=== PATIENT | female | born 1965 | race Caucasian/White ===

== ENCOUNTER 2022-05-28 11:15 | Outpatient (CLI) | payer MEDICAID, SELFPAY ==
[2022-05-28 15:02] LABS: SARS PCR* POSITIVE SARS-CoV-2 (Negative)
== END 2022-05-28 11:16 | disposition home or self-care (01) ==
LOC: KYNREF 11:15
PROVIDERS: PCP Nurse Practitioner Family; Visit Provider Nurse Practitioner Family
DX: U07.1 COVID-19 (principal); R09.81 Nasal congestion
CPT/HCPCS: 87635

== ENCOUNTER 2022-12-02 09:30 | Outpatient (CLI) | payer MEDICAID, SELFPAY ==
[2022-12-02 14:16] LABS: SARS PCR* Negative SARS-CoV-2 (Negative)
[2022-12-03 07:37] LABS: Strep A DNA Probe* NOT DETECTED (Not Detectd)
== END 2022-12-02 09:31 | disposition home or self-care (01) ==
PROVIDERS: PCP Nurse Practitioner Family; Visit Provider Nurse Practitioner Family
DX: Z20.822 Contact with and (suspected) exposure to COVID-19 (principal); J02.9 Acute pharyngitis, unspecified; J11.1 Influenza due to unidentified influenza virus with other respiratory manifestations
CPT/HCPCS: 87635; 87651

== ENCOUNTER 2023-07-22 08:31 | Outpatient (CLI) | payer MEDICAID, SELFPAY | END 2023-07-22 08:32 | disposition home or self-care (01) | PROVIDERS: PCP Nurse Practitioner Family; Visit Provider Nurse Practitioner Family | DX: Z00.00 Encounter for general adult medical examination without abnormal findings (principal); I10 Essential (primary) hypertension; R00.2 Palpitations | CPT/HCPCS: 83735; 84443 ==

== ENCOUNTER 2023-10-30 07:54 | Outpatient (CLI) | payer MEDICAID, SELFPAY ==
--- OUTSIDE RECORDS SUMMARY | 2023-10-30 08:08 | XMS_ITS | Encounter Summary ---
Author Name Unknown Organization [facility] Address [address] [place] [address] Care Team Providers Care Affirmative Action Officer Name Role Phone Elsewhere, Pcp Primary Care Provider Unavailabl e Encounter Details Date Type Department Care Team (Latest Contact Info) Description 08/11/2023 7:25 AM CDT - 08/11/2023 11:59 PM CDT Hospital Encounter Department of Laboratory Medicine and Pathology, [facility], in [place], [place] [address] [place] [address] Alida Colmenares M.D. [address] [place] [address] Polycystic Kidney Autosomal Dominant; Proteinuria Discharge Disposition: Home or Self Care Social History Tobacco Use Types Packs/Day Years Used Date Smoking Tobacco: Former Cigarettes 0 0 10/13/1983 - 10/13/1988 Smokeless Tobacco: Never Alcohol Use Standard Drinks/Week Comments Yes 1 (1 standard drink = 0.6 oz pur e alcohol) occasionally Humiliation, Afraid, Rape, and Kick questionnair e Answer Date Recorded Within the last year, have y ou been afraid of your partner or ex-partner? No 01/08/2023 Within the last year, have y ou been humiliated or emotionally abused in other ways by your partner or ex-partner? No Within the last year, have y ou been kicked, hit, slapped, or otherwise physically hurt by your partner or ex-partner? No 01/08/2023 Within the last year, have y ou been raped or forced to have any kind of sexual activity by your partner or ex-partner? No 01/08/2023 Social Connection and Isolat ion Panel [NHANES] Answer Date Recorded In a typical week, how many times do you talk on the phone with family, friends, or neighbors? Once a week 01/08/2023 How often do you get togethe r with friends or relatives? Once a week 01/08/2023 How often do you attend chur ch or tenriism services? More than 4 times per year 01/08/2023 Do you belong to any clubs o r organizations such as druze groups, unions, fraternal or athletic groups, or school groups? Yes 01/08/2023 How often do you attend meet ings of the clubs or organizations you belong to? More than 4 times per year 01/08/2023 Are you , , di vorced, , never , or living with a partner? 01/08/2023 AUDIT-C Answer Date Recorded Q1: How often do you have a drink containing alc ohol? 2-4 times a month 01/08/2023 Q2: How many drinks containi ng alcohol do you have on a typical day when you are drinking? 1 or 2 01/08/2023 Q3: How often do you have si x or more drinks on one occasion? Never 01/08/2023 Overall Financial Resource Strain (CARDIA) Answe r Date Recorded How hard is it for you to pa y for the very basics like food, housing, medical care, and heating? Not hard at all 01/08/2023 PHQ-2 Answer Date Recorded PHQ-2 Score 1 05/03/2022 [facility] - Occupational Stress Questionnaire Answer Date Recorded Do you feel stress - tense, restless, nervous, or anxious, or unable to sleep at night because your mind is troubled all the time - these days? Not at all 01/08/2023 Exercise Vital Sign Answer Date Recorde d On average, how many days pe r week do you engage in moderate to strenuous exercise (like a brisk walk)? 7 days 01/08/2023 On average, how many minutes do you engage in exercise at this level? 60 min 01/08/2023 Hunger Vital Sign Answer Date Recorded Within the past 12 months, y ou worried that your food would run out before you got the money to buy more. Never true 01/09/20 23 Within the past 12 months, t he food you bought just didn't last and you didn't have money to get more. Never true 01/08/2023 PRAPARE - Transportation Answer Date Re corded In the past 12 months, has l ack of transportation kept you from medical appointments or from getting medications? No 12/12 In the past 12 months, has l ack of transportation kept you from meetings, work, or from getting things needed for daily living? No 01/08/2023 Housing Stability Vital Sign Answer Kevan e Recorded In the last 12 months, was t here a time when you were not able to pay the mortgage or rent on time? No 01/08/2023 In the last 12 months, how many places have you lived? 1 01/08/2023 In the last 12 months, was t here a time when you did not have a steady place to sleep or slept in a usp (including now)? No 01/08/2023 Depression Answer Date Recor ded PHQ-9 Total Score (max 27) 7 05/03 Nutrition Answer Date Recorded Nutrition: EVOO Fat Source Yes 01/08 On average, how many serving s of fruits and vegetables do you eat per day (serving size is equal to 1 cup or approximately the size of a tennis ball)? 2-3 01/08/2023 Dental Answer Date Recorded Dental: Regular Dentist Yes 06/06/20 Employment Answer Date Recorded Employment status Employed and actively working without restrictions 01/08/2023 Education Answer Date Recorded What is the highest level of school you have completed or the highest degree you have received? Associate degree: occupational, technical, or vocational program 10/18/2019 Sex and Gender Information Value Date Recorded Sex Assigned at Female 07/06/2018 4:10 PM CDT Gender Identity Female 07/06/2018 4:10 PM CDT Sexual Orientation Straight 07/06/2018 4: 10 PM CDT documented as of this encounter Medications at Time of Discharge Medication Sig Dispensed Refills Start Date End Date citalopram (CeleXA) 2.5 mg tablet Take 10 mg by mouth. 0 05/28/2022 gabapentin (NEURONTIN) 300 mg capsule Take 1 capsule (300 mg total) by mouth 2 (two) times a day as needed (Sciatica pain). 60 capsule 3 07/11/2023 hydroCHLOROthiazide (HYDRODIURIL) 25 mg tablet Take 25 mg by mouth daily. 0 03/05/2022 LANOLIN/MINERAL OIL/PETROLATUM (ARTIFICIAL TEARS OPHT) Administer 1 drop into both eyes as needed. 0 03/19/2013 losartan (COZAAR) 50 mg tablet Take 1 tablet (50 mg total) by mouth daily. 30 tablet 11 07/11/2023 multivit,stress formula-zinc (b wgleeol-O-B-zinc) tablet Take 1 tablet by mouth daily. 0 rosuvastatin (CRESTOR) 5 mg tablet Take 1 tablet (5 mg total) by mouth daily. 30 tablet 11 07/11/2023 traZODone (DESYREL) 12.5 mg tablet Take 50 mg by mouth. 0 05/28/2022 valACYclovir (VALTREX) 1000 mg tablet Take 2,000 mg by mouth 2 (two) times a day. Not taking right now 0 03/05/2022 estradioL (DIVIGEL) 0.25 mg/0.25 gram (0.1 %) gel by other route. 0 12/02/2022 08/18/2023 documented as of this encounter Plan of Treatment Not on file documented as of this encounter Procedures Procedure Name Priority Date/Time Associated Diagnosis Comments ALBUMIN, RANDOM, U Routine 08/11/2023 7: 58 AM CDT Polycystic Kidney Autosomal Dominant Proteinuria PROTEIN/CREATININE RATIO, RANDOM, URINE Routine 08/11/2023 7:58 AM CDT Polycystic Kidney Autosomal Dominant Proteinuria documented in this encounter Results * Albumin, Random, Urine (08/11/2023 7:58 AM CDT) Albumin, Random, U 24.3 mg/L 2022 10:29 AM CDT DTL Comment: ----ADDITIONAL INFORMATION---- This test has been modified from the machinist mate's instructions. Its performance characteristics were determined by [facility] in a manner consistent with CLIA requirements. This test has not been cleared or approved by the U.S. Food and Drug Administration. Creatinine 135 mg/dL 08/11/2023 9:15 AM CDT DTL Albumin/Creatinine Ratio 18 <25 mg/g 08/11/2023 10:29 AM CDT DTL Urine (Urine, Midstream) 08/11/2023 7:58 AM CDT 08/11/2023 8:25 AM CDT Alida Colmenares M.D. LAB URINE ORDERABLES Performing Organization Address City/[facility] Co de Phone Number [facility] [address] [place] [address], [address] [address] * Protein/Creatinine Ratio, Random, Urine (08/11/2023 7:58 AM CDT) Protein, Total, Random, U 16 mg/dL 08/11/2023 9:15 AM CDT DTL Creatinine, Random, U 135 16 - 326 mg/dL 08/11/2023 9:15 AM CDT DTL Protein/Creatin ine Ratio 0.12 <0.18 mg/mg 08/11/2023 9:15 AM CDT DTL Urine (Urine, Midstream) 08/11/2023 7:58 AM CDT 08/11/2023 8:25 AM CDT Alida Colmenares M.D. LAB URINE ORDERABLES Performing Organization Address City/[facility]/ZIP Co de Phone Number [facility] [address] [place] [address], [address] [address] documented in this encounter Visit Diagnoses Diagnosis Polycystic Kidney Autosomal Dominant Proteinuria documented in this encounter Additional Health Concerns Assessment Noted Time PHQ-9 Depression Total Score: 7 05/03/20 22 10:25 AM CDT documented as of this encounter Care Teams Affirmative Action Officer Relationship Specialty Start Date End Date Elsewhere, Pcp PCP - General Internal Medicine 12/18/21 documented as of this encounter
--- OUTSIDE RECORDS SUMMARY | 2023-10-30 08:08 | XMS_ITS | Encounter Summary ---
Author Name Unknown Organization [facility] Address [address] [place] [address] Care Team Providers Care Pretzel Twister Name Role Phone Elsewhere, Pcp Primary Care Provider Unavailabl e Reason for Visit * Outpatient (Routine) - Closed Specialty Diagnoses / Procedures Referred By Irma torrez Referred To Contact Nutrition Diagnoses Hypertension Essential Primary Alida Colmenares M.D. [address] [place] [address] [facility] Referral ID Status Reason Start Date Expiration Date Visits Re quested Visits Authorized [id number] Closed 08/11/2023 08/10/2024 1 1 Encounter Details Date Type Department Care Team (Latest Contact Info) Description 09/29/2023 10:00 AM PATROL POLICE SERGEANT Clinical Support Department of Nutrition and Diabetes Education in [place], [place] [address] [place] [phone] Alida Colmenares M.D. [address] [place] [phone] Rowan Walden, JORGE ALBERTO, LD [address] [place] [phone] Hypertension Essential Primary Social History Tobacco Use Types Packs/Day Years [...] 01/08/2023 How often do you attend chur or mandaen services? More than 4 times per year 01/08/2023 Do you belong to any clubs o r organizations such as christianity groups, unions, fraternal or athletic groups, or [...] Answer Date Recorded PHQ-2 Score 1 05/03/2022 [facility] - Occupational Stress Questionnaire Answer Date Recorded [...] place to sleep or slept in a retirement (including now)? No 01/08/2023 Depression Answer Date [...] PM CDT documented as of this encounter Progress Notes * Rowan Walden RDN, LD - 09/29/2023 10:00 AM CST CHIEF COMPLAINT/REASON FOR VISIT PKD Met with patient and spouse [id number] HISTORY OF PRESENT ILLNESS Pertinent PMH: HTN ASSESSMENT Relevant Social and Food/Nutrition Related History Freda Manriquez reports she has been watching protein and sodium in her diet. She has been cooking from scratch. has diabetes so they are mindful of carbs. 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 She has cut back on her beef consumption Nutrition Questionnaire Breakfast: sometimes egg and toast and hash browns, hot cereal or yogurt and fruit, 1-2 c of decaf or tea, water Morning snack: n/a Lunch: brings lunch. Soup (homemade) or sandwich, fruit, could be the big meal Afternoon snack: n/a Evening meal: fruit yogurt toast, PB sandwich, out 1 night a week Bedtime snack: tea Beverage choices: 8-10 8 oz. water, decaf, tea, wine Salt/Seasoning use: pepper, no salt Physical activity: was walking 3 miles now doing water aerobic Pertinent labs: Unremarkable Medications/supplements: MVI, [place] 3, D3 and an omega 6 formula losartan Weight History Ht Readings from Last 1 Encounters: 07/11/23 159 cm Wt Readings from Last 1 Encounters: 08/11/23 76.5 kg BMI Readings from Last 1 Encounters: 08/11/23 30.26 kg/m?? Estimation of Nutritional Needs PROTEIN Weight:77 kg (actual body weight) Protein Range: 0.8 grams/kg Protein Goal: 62 grams per day NUTRITION DIAGNOSIS Food- and nutrition-related knowledge deficit related to limited exposure to specific nutritional guidelines for PKD as evidenced by patient questions and diet recall. Nutrition Prescription/Recommendation Less than 2300 mg sodium; 62 g protein INTERVENTION Counseling: Discussed limiting sodium intake to less than 2300 mg per day Encouraged limiting processed foods Encouraged incorporating more plant based proteins into diet while continuing to get adequate but not excessive protein Discussed/reviewed the benefits of getting adequate fluids Discussed/reviewed adding more fruits and veggies to diet Education Materials provided: Guidelines on Controlling Sodium; Calorie and Protein Content of common Foods; Mediterranean diet Also See Patient Education Record for information. MONITORING AND EVALUATION: Nutrition parameter to monitor: Food intake Desired Outcome: Maintain nutrition related lab values within target range Plan/Patient Goal(s): 1. Less than 2300 mg sodium 2. 60 gm total protein from both animal and plant-based sources 3. Avoid processed food 5. At least 5+ fruits and vegetables daily FOLLOW UP PLAN: Provided name and phone number if questions should arise Time spent with patient (minutes): 45 OL POLICE SERGEANT documented in this encounter Plan of Treatment Not on file documented as of this encounter Visit Diagnoses Diagnosis Hypertension Essential Primary documented in this encounter Additional Health Concerns Assessment Noted Time PHQ-9 Depression Total Score: 7 05/03/20 22 10:25 AM CDT documented as of this encounter Care Teams Pretzel Twister Relationship Specialty Start Date End Date Elsewhere, Pcp PCP - General Internal Medicine 12/18/21 documented as of this encounter
--- OUTSIDE RECORDS SUMMARY | 2023-10-30 08:08 | XMS_ITS | Clinical Summary ---
Author Name Unknown Organization [facility] Address [address] [place] [address] Care Team Providers Care Vehicle Technician Name Role Phone Elsewhere, Pcp Primary Care Provider Unavailabl e Source Comments Patient records contain information from all sites at [facility]. For routine questions regarding patient records, call [phone] during business hours, M-F 8:00 AM - 5:00 PM Central Time. Record requests for emergency care only can be directed to [phone] at any time.[facility] Allergies Active Allergy Reactions Criticality Noted Date Comments Irbesartan Palpitations Medium 07/19/2016 Lisinopril Rash Medium 07/19/2016 Medications Medication Sig Dispensed Refills Start Date End Date Status LANOLIN/MINERAL OIL/PETROLATUM (ARTIFICIAL TEARS OPHT) Administer 1 drop into both eyes as needed. 0 03/19/2013 Active multivit,stress formula-zinc (b gxezjju-D-H-zinc) tablet Take 1 tablet by mouth daily. 0 Active hydroCHLOROthiazi de (HYDRODIURIL) 25 mg tablet Take 25 mg by mouth daily. 0 03/05/2022 Active valACYclovir (VALTREX) 1000 mg tablet Take 2,000 mg by mouth 2 (two) times a day. Not taking right now 0 03/05/2022 Active traZODone (DESYREL) 12.5 mg tablet Take 50 mg by mouth. 0 05/28/2022 Acti ve citalopram (CeleXA) 2.5 mg tablet Take 10 mg by mouth. 0 05/28/2022 Acti ve losartan (COZAAR) 50 mg tablet Take 1 tablet (50 mg total) by mouth daily. 30 tablet 11 07/11/2023 Active gabapentin (NEURONTIN) 300 mg capsule Take 1 capsule (300 mg total) by mouth 2 (two) times a day as needed (Sciatica pain). 60 capsule 3 07/11/2023 Active Additional Information Patient not taking.Reported on 08/11/2023 rosuvastatin (CRESTOR) 5 mg tablet Take 1 tablet (5 mg total) by mouth daily. 30 tablet 11 07/11/2023 Active Additional Information Patient not taking.Reported on 08/26/2023 estradioL (ESTRACE) 0.1 mg/g (0.01%) vaginal cream Apply 0.5 gram vulvovaginally twice weekly. 42.5 g 0 08/20/2023 Active estradioL (ESTRACE) 0.1 mg/g (0.01%) vaginal cream Insert 0.5 g into the vagina 2 (two) times a week. 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 Polycystic Kidney Autosomal Dominant; Proteinuria Discharge Disposition: Home or Self Care 09/29/2023 1:00 PM INHALATION THERAPY AIDE Nurse Only Division of Nephrology and Hypertension in [address] [phone] Alida Colmenares M.D. Palmer, Anna M, R.N. blood pressure monitor check 09/29/2023 10:00 AM INHALATION THERAPY AIDE Clinical Support Department of Nutrition and Diabetes Education in [place], [place] [address] [place] [phone] Alida Colmenares M.D. Theiler, Jami L, RDN, LD Hypertension Essential Primary 08/14/2023 Refill [facility] in [place], [place] [address] [place] [address] Emily Lee P.A.-C. Med Refill 08/11/2023 8:30 AM CDT Nurse Only Division of Nephrology and Hypertension in [place], [place] [address] [place] [address] Alida Colmenares M.D. Palmer, Anna M, RCarenN. Hypertension 08/11/2023 7:25 AM CDT - 08/11/2023 11:59 PM CDT Hospital Encounter Department of Laboratory Medicine and Pathology, [place], [place] [address] [place] [address] Alida Colmenares M.D. Polycystic Kidney Autosomal Dominant; Proteinuria Discharge Disposition: Home or Self Care 08/11/2023 7:25 AM CDT - 08/11/2023 11:59 PM CDT Hospital Encounter Department of Laboratory Medicine and Pathology, [place], [place] [address] [place] [address] Alida Colmenares M.D. Polycystic Kidney Autosomal Dominant; Proteinuria Discharge Disposition: Home or Self Care from Last 3 Months Immunizations Name Administration Dates Next Due HepA Adult 12/21/2012 HepB Adult 05/01/2022(Deferred: Other - up to date) Influenza (IM) Preservative Free 012,08/01/2010,08/02/2008,2006 Influenza Split 10/27/2015, 4,07/13/2012,2006 Influenza TIV (IM) 08/10/2018,08/29/2017, 012 Influenza, Injectable, Mdck, Preservative Free, Quadrivalent 07/26/2020 Influenza, Injectable, Quadrivalent 07/28/2015 Influenza, Seasonal, Injectable 08/10/2012 Influenza, Unspecified 07/09/2018(Deferr ed: Other),07/19/2016,10/27/2015,07/28/2015 ,07/25/2014,07/30/2013,08/10/2012,07/13,12/24/2011,08/01/2010,08/02/2008, 07/13/2007 RZV (SHINGRIX) 05/01/2022(Deferred: Other - had 1st dose, due for 2nd dose soon) Td, (Adult) Unspecified 06/13/2005 Tdap 12/23/2012,12/21/2012 influenza high dose (65 year s or older) (PF) 10/27/2015 influenza vaccine QV(FLUBLOK ) (18 years or older) (PF) 07/25/2021,07/09/2018(Deferred: Other) influenza vaccine quad (FLUZONE/FLUARIX) (6 months and older)(PF) 08/03/2019,08/10/2018,08/29/2017 Family History Medical History Relation Name Comments Arthritis Father Chris Colon polyps Father Chris Hyperlipidemia Father Chris Hypertension Father Chris Stroke Father Chris Kidney disease Grandfather Stroke Grandmother Diabetes Mother Nasrin Kidney disease Mother Nasrin Relation Name Status Comments Father Chris Grandfather Grandmother Mother Nasrin Social History Tobacco Use Types Packs/Day Years Used Date Smoking Tobacco: Former Cigarettes 0 0 10/13/1983 - 10/13/1988 Smokeless Tobacco: Never Tobacco Cessation:Counseling Given: Not Answered Alcohol Use Standard Drinks/Week Comments Yes 1 [...] How often do you attend chur or gnosticism services? More than 4 times per year 01/08/2023 Do you belong to any clubs o r organizations such as faith groups, unions, fraternal or athletic groups, or [...] Answer Date Recorded PHQ-2 Score 1 05/03/2022 [facility] ional [facility] - Occupational Stress Questionnaire Answer Date Recorded [...] place to sleep or slept in a half-way (including now)? No 01/08/2023 Depression Answer Date [...] Orientation Straight 07/06/2018 4: 10 PM CDT Last Filed Vital Signs Vital Sign Reading Time Taken Comments Blood Pressure 160/86 08/11/2023 9:17 AM CDT Pulse 80 08/11/2023 9:09 AM CDT Temperature 35.2 ??C (95.4 ??F) 07/11/2023 1:24 PM CD T Respiratory Rate 12 07/29/2018 10:1 6 AM CDT Oxygen Saturation 98% 07/29/2018 10: 16 AM CDT Inhaled Oxygen Concentration - - Weight 76.5 kg (168 lb 10.4 oz) 08/11/2023 9:09 AM CDT Height 159 cm (5' 2.6) 07/11/2023 1:24 PM CDT Body Mass Index 30.26 07/11/2023 1:24 PM CDT Plan of Treatment Health Maintenance Due Date Last Done Comments CT Colonography 1967 Cologuard 1967 FIT 1967 Hepatitis B Vaccines (1 of 3 - 3-dose series) 1965 Hepatitis C Screening 1965 Mammogram 04/29/2023 04/29/2022, 06/0 06/2021, 12/08/2019, Additional history exists COVID-19 Vaccine ( season) 2023 09/02/2022, 03/05/2022, 08/30/2021, Additional history exists Depression Screening (Annual PHQ-2) 10/13/2023 Office Visit for Blood Pressure Check / Re-check 11/11/2023 08/11/2023 Creatinine Level (Kidney Function Test) 08/11/2024 08/11/2023, 07/11/2023, 04/29/2022, Additional history exists Potassium Level 08/11/2024 08/11/2023, 06/14, 04/29/2022, Additional history exists Sodium Level 08/11/2024 08/11/2023, 06/14, 04/29/2022, Additional history exists Fasting Glucose for Diabetes Screening 08/11/2026 08/11/2023, 07/11/2023, 04/29/2022, Additional history exists Cervical Cancer Screening 11/27/20262021, 03/14/2016, 03/14/2016, Additional history exists Lipid (Cholesterol) Screening 07/11/2028 07/11/2023, 04/29/2022, 03/21/2021, Additional history exists Colonoscopy 07/29/2028 07/29/2018, 07/13, 11/12/2005 Colorectal Cancer Screening 07/29/2028 DTaP,Tdap,and Td Vaccines (4 - Td or Tdap) 07/22/2033 07/22/2023, 12/23/2012, 12/21/2012, Additional history exists HIV Screening Completed 11/27/2007 Zoster Vaccines Completed 07/23/2022, 01/24/2022 Influenza Vaccine Completed 06/12/2023, , 07/25/2021, Additional history exists Hepatitis A Vaccines Completed 10/21/2023, 12/22/19 13 Pneumococcal vaccine (0-64 years) Aged Out No longer eligible based on patient's age to complete this topic Procedures Procedure Name Priority Date/Time Associated Diagnosis Comments MR BRAIN ANGIOGRAM WITHOUT IV CONTRAST RAD - Routine (most inpatients and all outpatients) 09/29/2023 2:31 PM INHALATION THERAPY AIDE Polycystic Kidney Autosomal Dominant Proteinuria ALBUMIN, RANDOM, U Routine 08/11/2023 7:58 AM CDT Polycystic Kidney Autosomal Dominant Proteinuria PROTEIN/CREATININ E RATIO, RANDOM, URINE Routine 08/11/2023 7:58 AM CDT Polycystic Kidney Autosomal Dominant Proteinuria RENAL FUNCTION PANEL, S Routine 08/11/2023 7:51 AM CDT Polycystic Kidney Autosomal Dominant Proteinuria from Last 3 Months Results * MR Brain Angiogram without IV Contrast (09/29/2023 2:31 PM INHALATION THERAPY AIDE) Anatomical Region Laterality Modality Head, Brain, Neuroradiology RST LOS, Neuroradiology ARZ LOS, Neuroradiology FLA LOS N/A Magnetic Resonance 09/29/2023 3:24 PM INHALATION THERAPY AIDE Impressions 09/29/2023 3:30 PM INHALATION THERAPY AIDE No evidence for aneurysm. Narrative 09/29/2023 3:30 PM INHALATION THERAPY AIDE EXAM: MR BRAIN ANGIOGRAM WITHOUT IV CONTRAST COMPARISON: None. FINDINGS: Mildly irregular contour along the undersurface of the proximal right cavernous ICA is favored to be related to flow artifact. No discrete aneurysm identified. Normal-appearing anterior and posterior circulations without flow-limiting stenosis. Hypoplastic or diminutive posterior communicating arteries. Small anterior communicating artery. Codominant vertebral arteries which both contribute to the basilar artery. Basilar artery is patent with a normal 4 vessel termination. Procedure Note Elena Shipman M.D. - 09/29/2023 EXAM: MR BRAIN ANGIOGRAM WITHOUT IV CONTRAST COMPARISON: None. FINDINGS: Mildly irregular contour along the undersurface of the proximalright cavernous ICA is favored to be related to flow artifact. No discreteaneurysm identified. Normal-appearing anterior and posterior circulationswithout flow- limiting stenosis. Hypoplastic or diminutive posterior communicating arteries. Smallanterior communicating artery. Codominant vertebral arteries which bothcontribute to the basilar artery. Basilar artery is patent with a normal 4vessel termination. IMPRESSION: No evidence for aneurysm. Alida Colmenares M.D. IMG MRI PROCEDURES * Albumin, Random, Urine (08/11/2023 7:58 AM CDT) Albumin, Random, U 24.3 mg/L 2022 10:29 AM CDT DTL Comment: ----ADDITIONAL INFORMATION---- This test has been modified from the turntable engineer's instructions. Its performance characteristics were determined by [facility] in a manner consistent with CLIA requirements. This test has not been cleared or approved by the U.S. Food and Drug Administration. Creatinine 135 mg/dL 08/11/2023 9:15 AM CDT DTL Albumin/Creatinine Ratio 18 <25 mg/g 08/11/2023 10:29 AM CDT DTL Urine (Urine, Midstream) 08/11/2023 7:58 AM CDT 08/11/2023 8:25 AM CDT Alida Colmenares M.D. LAB URINE ORDERABLES [facility] [address] [place] [address], [facility] [address] [place] [address] * Protein/Creatinine Ratio, Random, Urine (08/11/2023 7:58 AM CDT) Protein, Total, Random, U 16 mg/dL 08/11/2023 9:15 AM CDT DTL Creatinine, Random, U 135 16 - 326 mg/dL 08/11/2023 9:15 AM CDT DTL Protein/Creatin ine Ratio 0.12 <0.18 mg/mg 08/11/2023 9:15 AM CDT DTL Urine (Urine, Midstream) 08/11/2023 7:58 AM CDT 08/11/2023 8:25 AM CDT Alida Colmenares M.D. LAB URINE ORDERABLES [facility] [address] [place] [address], [facility] DTL [facility] [address] [place] [address] * Renal Function Panel (08/11/2023 7:51 AM CDT) Potassium, S 3.9 3.6 - 5.2 mmol/L 08/11/2023 8:47 AM CDT DTL Sodium, S 141 135 - 145 mmol/L 08/11/2023 8:47 AM CDT DTL Chloride, S 104 98 - 107 mmol/L 08/11/2023 8:47 AM CDT DTL Bicarbonate, S 27 22 - 29 mmol/L 08/11/2023 8:47 AM CDT DTL Anion Gap 10 7 - 15 08/11/2023 8:47 AM CDT DTL BUN (Blood Urea Nitrogen), S 15 6 - 21 mg/dL 08/11/2023 8:47 AM CDT DTL Creatinine 0.85 0.59 - 1.04 mg/dL 08/11/2023 8:47 AM CDT DTL Estimated GFR (eGFR) 81 >=60 mL/min/BSA 08/11/2023 8:47 AM CDT DTL Comment: Estimated GFR calculated using the 2020 CKD_EPI creatinine equation. Calcium, Total, S 9.6 8.6 - 10.0 mg/dL 08/11/2023 8:47 AM CDT DTL Glucose, S 117 70 - 140 mg/dL 08/11/2023 8:47 AM CDT DTL Albumin, S 5.0 3.5 - 5.0 g/dL 08/11/2023 8:47 AM CDT DTL Phosphorus (Inorganic), S 2.6 2.5 - 4.5 mg/dL 08/11/2023 8:47 AM CDT DTL Blood (Blood, Venous) 08/11/2023 7:51 AM CDT 08/11/2023 8:27 AM CDT Alida Colmenares M.D. LAB BLOOD ADD-ON [facility] [address] [place] [address], [place] [facility] [address] [place] [address] from Last 3 Months Advance Directives For more information, please contact: [phone] Documents on File Type Date Recorded Patient Lead Technologist In Cytogenetics Expl anation Advance Directives 04/04/2015 12:00 AM Leg acy document. See document viewer. Care Teams Vehicle Technician Relationship Specialty Start Date End Date Elsewhere, Pcp PCP - General Internal Medicine 12/18/21
--- OUTSIDE RECORDS SUMMARY | 2023-10-30 08:08 | XMS_ITS | Encounter Summary ---
Author Name Unknown Organization [facility] Address [address] [place] [address] Care Team Providers Care Clay Hoister Name Role Phone Elsewhere, Pcp Primary Care Provider Unavailabl e Reason for Visit * Reason Comments blood pressure monitor check * Outpatient (Routine) - Closed Specialty Diagnoses / Procedures Referred By Irma torrez Referred To Contact Nephrology and Hypertension Alida Colmenares M.D. [address] [place] [address] [facility] Referral ID Status Reason Start Date Expiration Date Visits Re quested Visits Authorized [id number] Closed 08/11/2023 08/10/2026 1 1 Encounter Details Date Type Department Care Team (Late st Contact Info) Description 09/29/2023 1:00 PM CATTLE DEALER Nurse Only Division of Nephrology and Hypertension in [place], [place] [address] [place] [phone] Alida Colmenares M.D. [address] [place] [phone] Gemma Judd R.N. [address] [place] [phone] blood pressure monitor check Social History Tobacco Use Types Packs/Day Years [...] How often do you attend chur or mormonism services? More than 4 times per year 01/08/2023 Do you belong to any clubs o r organizations such as spiritism groups, unions, fraternal or athletic groups, or [...] Answer Date Recorded PHQ-2 Score 1 05/03/2022 [facility] of Occupat ional [facility] - Occupational Stress Questionnaire Answer Date [...] money to buy more. Never true 01/09/20 Within the past 12 months, t he [...] place to sleep or slept in a correction (including now)? No 01/08/2023 Depression Answer Date [...] as of this encounter Progress Notes * Gemma Judd R.N. - 09/29/2023 1:00 PM CST Provider Name: Dr. Colmenares Reason for Visit: Returning short-term patient Relevant History: hypertension, kidney disease, and hyperlipidemia Freda came to have her home blood pressure monitor checked but forgot to bring it. She said she didhave it checked for accuracy with her PCP recently and it was accurate. I asked her to have it checked every year. She did mention that she is still having symptoms since starting Losartan in June. She says her heartbeat is more noticeable almost every day and this feeling lasts 30 seconds to a few minutes. She said it seems like a person sitting next to her would be able to see her heart beating in her chest. She denies any dizziness or light headedness or other symptoms with this feeling. Her blood pressures have been running consistently under 130/80. She said she also notices this feeling during exercise and but feels great after exercising. She said this feeing is getting better and that she can tolerate it. She did mention this feeling to her PCP who would have taken her off Losartan and increased her Metoprolol instead. She also said she never got results from her abdominal MRI in July. I did review the results with her but will let Dr. Colmenares review with her as well. LE DEALER documented in this encounter Plan of Treatment Not on file documented as of this encounter Visit Diagnoses Diagnosis Hypertension Essential Primary- Primary documented in this encounter Additional Health Concerns Assessment Noted Time PHQ-9 Depression Total Score: 7 05/03/20 22 10:25 AM CDT documented as of this encounter Care Teams Clay Hoister Relationship Specialty Start Date End Date Elsewhere, Pcp PCP - General Internal Medicine 12/18/21 documented as of this encounter
--- OUTSIDE RECORDS SUMMARY | 2023-10-30 08:08 | XMS_ITS ---
Author Name Unknown Organization [facility] Address [address] [place] [address] Care Team Providers Care Stick Welder Name Role Phone Unavailable Unavailable Unavailable Surgery Details Not on file Complications Check Surgery Details section. Procedure Estimated Blood Loss Check Surgery Details section. Procedure Findings Check Surgery Details section. Procedure Specimens Taken Check Surgery Details section.
--- OUTSIDE RECORDS SUMMARY | 2023-10-30 08:08 | XMS_ITS | Encounter Summary ---
Author Name Unknown Organization [facility] Address [address] [place] [address] Care Team Providers Care Aluminum Molding Machine Operator Name Role Phone Elsewhere, Pcp Primary Care Provider Unavailabl e Encounter Details Date Type Department Care Team (Latest Contact Info) Description 08/11/2023 7:25 AM CDT - 08/11/2023 11:59 PM CDT Hospital Encounter Department of Laboratory Medicine and Pathology, [facility], in [place], [place] [address] [place] [address] Alida Colmenares M.D. [address] [place] [address] Polycystic Kidney Autosomal Dominant; Proteinuria Discharge Disposition: [...] often do you attend chur ch or amish services? More than 4 times per year 01/08/2023 Do you belong to any clubs o r organizations such as restorationist groups, unions, fraternal or athletic groups, or [...] Answer Date Recorded PHQ-2 Score 1 05/03/2022 [facility] - Occupational Stress [...] 30 tablet 11 07/11/2023 multivit,stress formula-zinc (b vsaujwf-G-J-zinc) tablet Take 1 tablet by mouth daily. [...] Procedure Name Priority Date/Time Associated Diagnosis Comments RENAL FUNCTION PANEL, S Routine 08/11/2023 7:51 AM CDT Polycystic Kidney Autosomal Dominant Proteinuria documented in this encounter Results * Renal Function Panel (08/11/2023 7:51 AM [...] CDT Alida Colmenares M.D. [place] [address], [facility] [address] [place] [address] documented in this encounter Visit Diagnoses Diagnosis Polycystic Kidney Autosomal Dominant Proteinuria documented in this encounter Additional Health Concerns Assessment Noted Time PHQ-9 Depression Total Score: 7 05/03/20 10:25 AM CDT documented as of this encounter Care Teams Aluminum Molding Machine Operator Relationship Specialty Start Date End Date Elsewhere, Pcp PCP - General Internal Medicine 12/18/21 documented as of this encounter
--- OUTSIDE RECORDS SUMMARY | 2023-10-30 08:08 | XMS_ITS | Encounter Summary ---
Author Name Unknown Organization [facility] Address [address] [place] [address] Care Team Providers Care Automobile Club Membership Sales Agent Name Role Phone Elsewhere, Pcp Primary Care Provider Unavailabl e Reason for Referral * MRI/CAT/PET Scan (Routine) - Closed Specialty Diagnoses / Procedures Referred By Irma torrez Referred To Contact Radiology Diagnoses Polycystic Kidney Autosomal Dominant Proteinuria Procedures MR Brain Angiogram without IV Contrast Alida Colmenares M.D. [address] [place] [address] [facility] Referral ID Status Reason Start Date Expiration Date Visits Re quested Visits Authorized [id number] Closed 07/11/2023 07/10/2024 1 1 AND FLOOR TILER Reason for Visit * MRI/CAT/PET Scan (Routine) - Closed Specialty Diagnoses / Procedures Referred By Irma torrez Referred To Contact Radiology Diagnoses Polycystic Kidney Autosomal Dominant Proteinuria Procedures MR Brain Angiogram without IV Contrast Alida Colmenares M.D. [address] [place] [address] [facility] Referral ID Status Reason Start Date Expiration Date Visits Re quested Visits Authorized [id number] Closed 07/11/2023 07/10/2024 1 1 Encounter Details Date Type Department Care Team (Latest Contact Info) Description 09/29/2023 1:27 PM WALL AND FLOOR TILER - 09/29/2023 11:59 PM WALL AND FLOOR TILER Hospital Encounter Department of Radiology, [facility] in [place], [place] [address] [place] [address] Alida Colmenares M.D. [address] [place] [address] Polycystic Kidney Autosomal Dominant; Proteinuria Discharge Disposition: [...] often do you attend chur ch or anabaptism services? More than 4 times per year 01/08/2023 Do you belong to any clubs o r organizations such as presybeterian groups, unions, fraternal or athletic groups, or [...] Answer Date Recorded PHQ-2 Score 1 05/03/2022 [facility] of Occupat ional Health - Occupational Stress [...] place to sleep or slept in a mcc (including now)? No 01/08/2023 Depression Answer Date [...] Take 10 mg by mouth. 0 05/28/2022 estradioL (ESTRACE) 0.1 mg/g (0.01%) vaginal cream Apply 0.5 gram vulvovaginally twice weekly. 42.5 g 0 08/20/2023 estradioL (ESTRACE) 0.1 mg/g (0.01%) vaginal cream Insert 0.5 g into the vagina 2 (two) times a week. 0 gabapentin (NEURONTIN) 300 mg capsule Take 1 [...] 30 tablet 11 07/11/2023 multivit,stress formula-zinc (b qtljsag-K-N-zinc) tablet Take 1 tablet by mouth daily. 0 rosuvastatin (CRESTOR) 5 mg tablet Take 1 tablet (5 mg total) by mouth daily. 30 tablet 11 07/11/2023 traZODone (DESYREL) 12.5 mg tablet Take 50 mg by mouth. 0 05/28/2022 valACYclovir (VALTREX) 1000 mg tablet Take 2,000 mg by mouth 2 (two) times a day. Not taking right now 0 03/05/2022 documented as of this encounter Plan of Treatment Not on file documented as of this encounter Procedures Procedure Name Priority Date/Time Associated Diagnosis Comments MR BRAIN ANGIOGRAM WITHOUT IV CONTRAST RAD - Routine (most inpatients and all outpatients) 09/29/2023 2:31 PM WALL AND FLOOR TILER Polycystic Kidney Autosomal Dominant Proteinuria documented in this encounter Results * MR Brain Angiogram without IV Contrast (09/29/2023 2:31 PM WALL AND FLOOR TILER) Anatomical Region Laterality Modality Head, Brain, Neuroradiology RST LOS, Neuroradiology ARZ [facility], Neuroradiology FLA LOS N/A Magnetic Resonance 09/29/2023 3:24 PM WALL AND FLOOR TILER Impressions 09/29/2023 3:30 PM WALL AND FLOOR TILER No evidence for aneurysm. Narrative 09/29/2023 3:30 PM WALL AND FLOOR TILER EXAM: MR BRAIN ANGIOGRAM WITHOUT IV CONTRAST [...] termination. IMPRESSION: No evidence for aneurysm. Alida VARGAS MRI PROCEDURES documented in this encounter Visit Diagnoses Diagnosis Polycystic Kidney Autosomal Dominant Proteinuria documented in this encounter Additional Health Concerns Assessment Noted Time PHQ-9 Depression Total Score: 7 05/03/20 22 10:25 AM CDT documented as of this encounter Care Teams Automobile Club Membership Sales Agent Relationship Specialty Start Date End Date Elsewhere, Pcp PCP - General Internal Medicine 12/18/21 documented as of this encounter
--- OUTSIDE RECORDS SUMMARY | 2023-10-30 08:08 | XMS_ITS | Encounter Summary ---
Author Name Unknown Organization [facility] Address [address] [place] [address] Care Team Providers Care Air Technician Name Role Phone Elsewhere, Pcp Primary Care Provider Unavailabl e Reason for Visit * Reason Comments Med Refill Encounter Details Date Type Department Care Team (Late st Contact Info) Description 08/14/2023 Refill [facility] in [place], [place] [address] [place] [address] Emily Lee, P.A.-C. [address] [place] [address] Med Refill Social History Tobacco Use Types Packs/Day Years [...] How often do you attend chur or sabianist services? More than 4 times per year 01/08/2023 Do you belong to any clubs o r organizations such as taoism groups, unions, fraternal or athletic groups, or [...] Date Recorded PHQ-2 Score 1 05/03/2022 [facility] - Occupational [...] place to sleep or slept in a assisted (including now)? No 01/08/2023 Depression Answer Date [...] PM CDT documented as of this encounter Miscellaneous Notes * Telephone Encounter - Elvia Aguilera L.P.NCaren - 08/18/2023 10:07 AM BRICK VENEER MAKER SUBJECTIVE CHIEF COMPLAINT / REASON FOR CALL Med Refill PLAN The following information was provided: Confirmation of medication dose and frequency Information/Education: patient/caller able to teach back The following references were used: none Discrepancy/Issue: Medication was removed from list in error. Patient is still taking. Patient reports taking medication as prescribed. ASSESSMENT Medication list has been updated to reflect patient reported information. Nurse will communicate information to the provider and contact the patient if there are further recommendations. K VENEER MAKER documented in this encounter Plan of Treatment Not on file documented as of this encounter Visit Diagnoses Not on filedocumented in this encounter Additional Health Concerns Assessment Noted Time PHQ-9 Depression Total Score: 7 05/03/20 22 10:25 AM CDT documented as of this encounter Care Teams Air Technician Relationship Specialty Start Date End Date Elsewhere, Pcp PCP - General Internal Medicine 12/18/21 documented as of this encounter
--- OUTSIDE RECORDS SUMMARY | 2023-10-30 08:08 | XMS_ITS | Referral Summary ---
Author Name Unknown Organization [facility] Address [address] [place] [address] Care Team Providers Care Research Professor Name Role Phone Elsewhere, Pcp Primary Care Provider Unavailabl e Source Comments Patient records contain information from all sites at [facility]. For routine questions regarding patient records, call [phone] during business hours, M-F 8:00 AM - 5:00 PM Central Time. Record requests for emergency care only can be directed to [phone] at any time.[facility] Encounters Date Type Department Care Team Description 09/29/2023 1:00 PM PUNCH MACHINE HAND Nurse Only Division of Nephrology and Hypertension in [place], [place] [address] [place] [address] Alida Colmenares M.D. Palmer, Anna M, R.N. blood pressure monitor check 09/29/2023 10:00 AM PUNCH MACHINE HAND Clinical Support Department of Nutrition and Diabetes Education in [place], [place] [address] [place] [address] Alida Colmenares M.D. Theiler, Jami L, MAGDALENAN, LD Hypertension Essential Primary 09/29/2023 1:27 PM PUNCH MACHINE HAND - 09/29/2023 11:59 PM PUNCH MACHINE HAND Hospital Encounter Department of Radiology, [facility] in [place], [place] [address] [place] [address] Alida Colmenares M.D. Polycystic Kidney Autosomal Dominant; Proteinuria Discharge Disposition: Home or Self Care 08/14/2023 Refill [facility] in [place], [place] [address] [place] [address] Emily Lee P.A.-C. Med Refill 08/11/2023 7:25 AM CDT - 08/11/2023 11:59 PM CDT Hospital Encounter Department of Laboratory Medicine and Pathology, [facility], [place], [place] [address] [place] [address] Alida Colmenares M.D. Polycystic Kidney Autosomal Dominant; Proteinuria Discharge Disposition: Home or Self Care 08/11/2023 7:25 AM CDT - 08/11/2023 11:59 PM CDT Hospital Encounter Department of Laboratory Medicine and Pathology, [place], [place] [address] [place] [address] Alida Colmenares M.D. Polycystic Kidney Autosomal Dominant; Proteinuria Discharge Disposition: Home or Self Care 08/11/2023 8:30 AM CDT Nurse Only Division of Nephrology and Hypertension in [place], [place] [address] [place] [address] Alida Colmenares M.D. Palmer, Anna M, R.N. Hypertension from Last 3 Months Allergies Active Allergy Reactions Criticality Noted Date Comments Irbesartan Palpitations Medium 07/19/2016 Lisinopril Rash Medium 07/19/2016 Medications Medication Sig Dispensed Refills Start Date End Date Status LANOLIN/MINERAL OIL/PETROLATUM (ARTIFICIAL TEARS OPHT) Administer 1 drop into both eyes as needed. 0 03/19/2013 Active multivit,stress formula-zinc (b mwvbkax-W-J-zinc) tablet Take 1 tablet by mouth daily. 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 More than 4 times per year 01/08/2023 Do you belong to any clubs o r organizations such as bahai groups, unions, fraternal or athletic groups, or [...] Date Recorded PHQ-2 Score 1 05/03/2022 [facility] - Occupational Stress Questionnaire Answer Date [...] place to sleep or slept in a group home (including now)? No 01/08/2023 Depression Answer Date [...] 07/11/2023 1:24 PM CDT Plan of Treatment Not on file Procedures Procedure Name Priority Date/Time Associated Diagnosis Comments MR BRAIN ANGIOGRAM WITHOUT IV CONTRAST RAD - Routine (most inpatients and all outpatients) 09/29/2023 2:31 PM PUNCH MACHINE HAND Polycystic Kidney Autosomal Dominant Proteinuria ALBUMIN, RANDOM, U Routine 08/11/2023 7:58 AM CDT Polycystic Kidney Autosomal Dominant Proteinuria PROTEIN/CREATININ E RATIO, RANDOM, URINE Routine 08/11/2023 7:58 AM CDT Polycystic Kidney Autosomal Dominant Proteinuria RENAL FUNCTION PANEL, S Routine 08/11/2023 7:51 AM CDT Polycystic Kidney Autosomal Dominant Proteinuria from Last 3 Months Results * MR Brain Angiogram without IV Contrast (09/29/2023 2:31 PM PUNCH MACHINE HAND) Anatomical Region Laterality Modality Head, Brain, Neuroradiology [facility] LOS, Neuroradiology [facility], Neuroradiology FLA LOS N/A Magnetic Resonance 09/29/2023 3:24 PM PUNCH MACHINE HAND Impressions 09/29/2023 3:30 PM PUNCH MACHINE HAND No evidence for aneurysm. Narrative 09/29/2023 3:30 PM PUNCH MACHINE HAND EXAM: MR BRAIN ANGIOGRAM WITHOUT IV CONTRAST [...] This test has been modified from the cardiac cath rn's instructions. Its performance characteristics were determined by [facility] in a manner consistent with CLIA requirements. This test has not been cleared or approved by the U.S. Food and Drug Administration. Creatinine 135 mg/dL 08/11/2023 9:15 AM CDT DTL Albumin/Creatinine Ratio 18 <25 mg/g 08/11/2023 10:29 AM CDT DTL Urine (Urine, Midstream) 08/11/2023 7:58 AM CDT 08/11/2023 8:25 AM CDT Alida Colmenares M.D. LAB URINE ORDERABLES Performing Organization Address City/[facility] Co de Phone Number [facility] [address] [place] [address], [facility] [address] [place] [address] * Protein/Creatinine Ratio, Random, Urine (08/11/2023 7:58 [...] M.D. LAB URINE ORDERABLES Performing Organization Address City/[facility]/ZIP Co de Phone Number [facility] [address] [place] [address], [place] DTL [facility] [address] [place] [address] * Renal Function Panel (08/11/2023 7:51 AM CDT) Pathologist [facility] Potassium, S 3.9 3.6 - 5.2 mmol/L [...] CDT Alida Colmenares M.D. LAB BLOOD ADD-ON [facility] [address] [place] [address], [facility] DTL [facility] [address] [place] [address] from Last 3 Months Advance Directives For more information, please contact: [phone] Documents on File Type Date Recorded Patient Bilingual Sales Representative Expl anation Advance Directives 04/04/2015 12:00 AM Leg acy document. See document viewer. Care Teams Research Professor Relationship Specialty Start Date End Date Elsewhere, Pcp PCP - General Internal Medicine 12/18/21
--- OUTSIDE RECORDS SUMMARY | 2023-10-30 08:09 | XMS_ITS | Encounter Summary ---
Author Name Unknown Organization [facility] Address [address] [place] [address] Care Team Providers Care Offal Icer Poultry Name Role Phone Elsewhere, Pcp Primary Care Provider Unavailabl e Reason for Visit * Reason Comments Eye Exam * Outpatient (Routine) - Closed Specialty Diagnoses / Procedures Referred By Irma torrez Referred To Contact Ophthalmology Tyler Smith Jr., M.D. [address], [place] [address] [facility] Region Referral ID Status Reason Start Date Expiration Date Visits Re quested Visits Authorized [id number] Closed 06/24/2022 06/23/2025 1 1 Encounter Details Date Type Department Care Team (Latest Contact Info) Description 01/14/2023 4:00 PM CDT Office Visit Department of Ophthalmology in [place], [place] [address] [place] [phone] Tyler Smith Jr., M.D. [address] [place] [phone] Myopia Bilateral (Primary Dx); Presbyopia Social History Tobacco Use Types Packs/Day Years Used Date Smoking Tobacco: Former Cigarettes Smokeless Tobacco: Never Tobacco Cessation:Counseling Given: Not Answered Alcohol Use Standard Drinks/Week Comments Yes 0 (1 standard drink = 0.6 oz pur [...] week 01/08/2023 How often do you attend [facility] or adventist services? More than 4 times per year 01/08/2023 Do you belong to any clubs o r organizations such as synagogue groups, unions, fraternal or athletic groups, or [...] Answer Date Recorded PHQ-2 Score 1 05/03/2022 [facility] - Occupational Stress [...] place to sleep or slept in a fpc (including now)? No 01/08/2023 Depression Answer Date [...] as of this encounter Progress Notes * Tyler Smith Jr., M.D. - 01/14/2023 4:00 PM CDT Freda Manriquez was seen today for Eye Exam #1 Myopia Bilateral #2 Presbyopia New glasses. She has a past history of multiple consecutive sub conj hemorrhages; none on today's exam. No hx ofblood thinners or aspirin; does bruise easily. May wish to have bleeding time, coagulation studies with PCP. Rto when contact lens trial in for left eye. documented in this encounter Plan of Treatment Not on file documented as of this encounter Visit Diagnoses Diagnosis Myopia Bilateral- Primary Presbyopia documented in this encounter Additional Health Concerns Assessment Noted Time PHQ-9 Depression Total Score: 7 05/03/20 22 10:25 AM CDT documented as of this encounter Care Teams Offal Icer Poultry Relationship Specialty Start Date End Date Elsewhere, Pcp PCP - General Internal Medicine 12/18/21 documented as of this encounter
--- OUTSIDE RECORDS SUMMARY | 2023-10-30 08:09 | XMS_ITS | Encounter Summary ---
Author Name Unknown Organization [facility] Address [address] [place] [address] Care Team Providers Care Stave Machine Tender Name Role Phone Elsewhere, Pcp Primary Care Provider Unavailabl e Encounter Details Date Type Department Care Team (Late st Contact Info) Description 01/27/2015 Historical Ophthalmology [facility] Tyler Smith Jr., M.D. [address] [phone] Social History Tobacco Use Types Packs/Day Years Used Date Smoking Tobacco: Never Assessed Sex and Gender Information Value Date Recorded Sex Assigned at Female 07/06/2018 4:10 PM CDT Gender Identity Female 07/06/2018 4:10 PM CDT Sexual Orientation Straight 07/06/2018 4: 10 PM CDT documented as of this encounter Progress Notes * Tyler Smith M.D. - 01/27/2015 8:02 AM CDT Eye General CHIEF COMPLAINT Pt here for complete eye exam HISTORY OF PRESENT ILLNESS Pt uses 1 ctx L eye for reading Did not wear ctx in today but needs to get Rx for L eye IMPRESSION / REPORT / PLAN A) Presbyopia P) RTO 1 year, new MR /CL CDM Reports - EYEGEN Id: [id number] Status: Fnl documented in this encounter Plan of Treatment Not on file documented as of this encounter Visit Diagnoses Not on filedocumented in this encounter Additional Health Concerns Assessment Noted Time PHQ-9 Depression Total Score: 0 10/15/19 14 12:16 PM CORE SHAPER documented as of this encounter Care Teams Stave Machine Tender Relationship Specialty Start Date End Date Elsewhere, Pcp PCP - General Internal Medicine 12/18/21 documented as of this encounter
--- OUTSIDE RECORDS SUMMARY | 2023-10-30 08:09 | XMS_ITS | Encounter Summary ---
Author Name Unknown Organization [facility] Address [address] [place] [address] Care Team Providers Care Bond Clerk Name Role Phone Elsewhere, Pcp Primary Care Provider Unavailabl e Reason for Referral * Outpatient (Routine) - Closed Specialty Diagnoses / Procedures Referred By Irma torrez Referred To Contact Nephrology and Hypertension Alida Colmenares M.D. [address] [place] [address] [facility] Referral ID Status Reason Start Date Expiration Date Visits Re quested Visits Authorized [id number] Closed 07/11/2023 07/10/2026 1 1 * Outpatient (Routine) - Authorized Specialty Diagnoses / Procedures Referred By Irma torrez Referred To Contact Nephrology and Hypertension Alida Colmenares M.D. [address] [place] [address] [facility] Referral ID Status Reason Start Date Expiration Date V isits Requested Visits Authorized [id number] Authorized 07/11/2023 07/10/2026 1 1 * MRI/CAT/PET Scan (Routine) - Closed Specialty Diagnoses / Procedures Referred By Irma torrez Referred To Contact Radiology Diagnoses Polycystic Kidney Autosomal Dominant Proteinuria Procedures MR Brain Angiogram without IV Contrast Alida Colmenares M.D. [address] [place] [address] [facility] Referral ID Status Reason Start Date Expiration Date Visits Re quested Visits Authorized [id number] Closed 07/11/2023 07/10/2024 1 1 * MRI/CAT/PET Scan (Routine) - Closed Specialty Diagnoses / Procedures Referred By Irma torrez Referred To Contact Radiology Diagnoses Kidney And Ureter Disorder Procedures MR Abdomen without and with IV Contrast Alida Colmenares M.D. [address] [place] [address] [facility] Referral ID Status Reason Start Date Expiration Date Visits Re quested Visits Authorized [id number] Closed 07/11/2023 07/10/2024 1 1 Reason for Visit * Appointment Request (Routine) - Closed Specialty Diagnoses / Procedures Referred By Irma torrez Referred To Contact Nephrology and Hypertension [place] [address] Referral ID Status Reason Start Date Expiration Date Visits Re quested Visits Authorized [id number] Closed 05/09/2023 05/08/2024 1 1 Encounter Details Date Type Department Care Team (Latest Contact Info) Description 07/11/2023 1:45 PM CDT Office Visit Division of Nephrology and Hypertension in [place], [place] [address] [place] [phone] Alida Colmenares M.D. [address] [place] [phone] Polycystic Kidney Autosomal Dominant (Primary Dx); Chronic Kidney Disease Stage 2 Glomerular Filtration Rate 60 To 89; Proteinuria; Iron Deficiency Anemia Screening Exam; Sciatica Left Social History Tobacco Use Types Packs/Day Years [...] often do you attend chur ch or temple services? More than 4 times per year 01/08/2023 Do you belong to any clubs o r organizations such as zoroastrian groups, unions, fraternal or athletic groups, or [...] Answer Date Recorded PHQ-2 Score 1 05/03/2022 [facility] - Occupational [...] PM CDT documented as of this encounter Last Filed Vital Signs Vital Sign Reading Time Taken Comments Blood Pressure 144/85 07/11/2023 1:54 PM CDT Pulse 57 07/11/2023 1:54 PM CDT Temperature 35.2 ??C (95.4 ??F) 07/11/2023 1:24 PM CD T Respiratory Rate - - Oxygen Saturation - - Inhaled Oxygen Concentration - - Weight 76 kg (167 lb 7 oz) 07/11/2023 1:24 PM CD T Height 159 cm (5' 2.6) 07/11/2023 1:24 PM CDT Body Mass Index 30.04 07/11/2023 1:24 PM CDT documented in this encounter Patient Instructions * Patient Instructions* Alida Colmenares M.D. - 07/11/2023 1:45 PM CDT Thank you for seeing us in the [facility] Nephrology and Hypertension Clinic. You were seen today for abnormal kidney function that is due to polycystic kidney disease. Your kidney function is currently normal, but you do have protein in the urine now that could be related to high BPs. In terms of your medications, I recommend stopping metoprolol and taking losartan 50 mg once a day instead given the protein in the urine. I am also prescribing rosuvastatin for high cholesterol and kidney protection. You may stop taking iron and we will let you know if you need to restart it. We are also ordering MRI brain and abdomen to further assess PKD comorbidities. For your sciatica, we recommend doing back strengthening exercises and I am prescribing gabapentin 300 mg twice a day as needed for pain. Monitor your blood pressure at home and send us periodic readings via the [facility]. Our goal blood pressure for you is 110-130/60-80. Avoid all non-steroidal anti-inflammatory drugs (NSAIDs), including ibuprofen, naproxen, Motrin, Advil, Aleve. Tylenol is ok. Please check in with your primary care provider about when you are next due for a colonoscopy. Return to see our nurses in BP clinic in 1 month to monitor your labs and how your BP is respondingto losartan. Return to see me in 3 months with labs prior. documented in this encounter Progress Notes * Alida Colmenares M.D. - 07/11/2023 1:45 PM CDT Freda Manriquez is a 57 y.o. female with hypertension presenting for follow-up of polycystic kidney disease. Renal History: Patient was first seen in Nephrology clinic in 12/1996. At the time, patient reported she was diagnosed with autosomal dominant polycystic kidney disease in August 1993 at which time her creatinine was 0.8 and she was normotensive. Gene analysis has demonstrated PKD 1 Missense, Nontruncating R2802/ M985. CT scan with contrast showed no evidence of aneurysmal disease. Ultrasound of the liver andkidneys was consistent with polycystic kidney disease with the right kidney 10.9 cm and the left 11.2 cm with 7 or 8 small cysts in each kidney. There was no evidence of liver cysts, but she does now. As for her family history of polycystic kidney disease, both her maternal grandfather, maternal great-uncle, her mother, and maternal cousin (child of maternal great uncle) have been diagnosed with polycystic kidney disease. Her mother is status-post renal transplant in 1993. Since then, 2 of her 3 daughters have been diagnosed with PKD. Management of her PKD has included a beta-wagner for hypertension after having an allergic reaction to both and DELMI and ARB, she follows a low- salt diet withincreased fluid intake and has regular exercise. She has noted with increased humidity she feels swollen. She visits her daughter in [place] yearly. Of note, in the past she has taken NSAIDs (Celebrex). In terms of renal function, review of available records show that patient's baseline creatinine is 0.6-0.8 mg/dL. Urinalysis had been negative for protein until 06/2023. Interim History: Patient was last seen on 04/29/2022. Since last visit, patient has not had any acute illnesses or hospitalizations other than a cold in 01/2023. She has noted that her BP has been uptrending to 140-150s/80-90s on home readings. She reports headaches often and that she has an aunt and a cousin who both had aneurysms. She hasn't had any cyst rupture or infections. She has liver cysts, but these are asymptomatic. The only other symptom she reports is sciatica pain for the last 3 weeks. She does not recall trauma, discoloration of toes, ulcers in legs. PAST MEDICAL/SURGICAL HISTORY, FAMILY HISTORY AND SOCIAL HISTORY: were reviewed and updated as appropriate. REVIEW OF SYSTEMS: denies fevers/chills, recent changes in mood, SOB, chest pain, nausea/vomiting, change in appetite, metallic taste in mouth, gross hematuria. All other systems were reviewed and were otherwise negative. Allergies Allergen Reactions Irbesartan Palpitations Lisinopril Rash MEDICATIONS: Current Medications: citalopram (CeleXA) 2.5 mg tablet, Take 10 mg by mouth. estradioL (DIVIGEL) 0.25 mg/0.25 gram (0.1 %) gel, by other route. ferrous sulfate 325 mg (65 mg iron) tablet, Take 1 tablet by mouth daily. hydroCHLOROthiazide (HYDRODIURIL) 25 mg tablet, Take 25 mg by mouth daily. hydrochlorothiazide 5 mg/mL oral suspension, Take 25 mg by mouth. LANOLIN/MINERAL OIL/PETROLATUM (ARTIFICIAL TEARS OPHT), Administer 1 drop into both eyes as needed. metoprolol succinate (KAPSPARGO SPRINKLE) 50 mg 24 hr sprinkle capsule, Take by mouth. metoprolol succinate (TOPROL-XL) 25 mg 24 hr tablet, TAKE TWO TABLETS BY MOUTH DAILY multivit,stress formula-zinc (b wrxrtie-Q-Q-zinc) tablet, Take 1 tablet by mouth daily. traZODone (DESYREL) 12.5 mg tablet, Take 50 mg by mouth. valACYclovir (VALTREX) 1000 mg tablet, Take 2,000 mg by mouth 2 (two) times a day. Not taking rightnow valACYclovir (VALTREX) 500 mg tablet, TAKE 1 TABLET BY MOUTH TWO TIMES A DAY NEEDED WITH OUTBREAKS valACYclovir 50 mg/mL oral suspension, Take 1,000 mg by mouth. Npot taking right now PHYSICAL EXAM: Vitals: 07/11/23 1324 07/11/23 1354 BP: 144/85 Pulse: 65 (!) 57 Temp: (!) 35.2 ??C TempSrc: Tympanic Weight: 76 kg Height: 159 cm Wt Readings from Last 3 Encounters: 07/11/23 76 kg 04/29/22 74.1 kg 07/20/21 74.8 kg General Appearance: Alert, cooperative, no acute distress Head: Normocephalic, atraumatic Eyes: Conjunctiva/corneas clear, anicteric sclerae ENMT: Normal external nose and ears; mucous membranes moist/intact Neck: Supple; no jugular venous distension Lungs: Clear to auscultation bilaterally; normal inspiratory effort Heart: Regular rate & rhythm, S1 and S2 normal, no murmur or rub GI: Soft, non-tender, non-distended; +active bowel sounds MSK: No lower extremity edema. No clubbing/cyanosis Derm: No obvious rash or jaundice Neuro: Speech clear; grossly non-focal Psych: Normal affect Hematologic: No excessive bruising noted LABS/STUDIES: I have personally reviewed all pertinent laboratories available in [facility] and [facility], including the following: Recent Labs 07/11/23 0851 NA 140 KSERUM 4.2 BICARB 28 BUN 14 CREATININE 0.88 EGFR 78 CALCIUM 9.5 LABPHOS 3.4 No results for input(s): LABIRON, FERRITIN in the last 8760 hours. Recent Labs 07/11/23 0857 UADMSRC3 Urine, Urine, Midstream CLARITYU Clear COLORU Yellow OSMOLALITYU 216 PHURINE 6.5 GLUCOSEU Negative BLOODUR Negative MICROSCOPIC Normal NITRITEU Negative LEUKOCYTESU Negative Recent Labs 07/11/23 0857 PROTCREATU 0.13 Recent Labs 07/11/23 0857 ALBCREARATIO 47 H ASSESSMENT AND PLAN: Freda Manriquez is a 57 y.o. female with hypertension and polycystic kidney disease seen today for the following: #1 Polycystic Kidney Autosomal Dominant Screening [facility] Class pending - Total Kidney Volume may help to predict course of disease - MRI abdomen not recently done. Last was in 03/2021 but no TKV calculated, will repeat scan now. Brain MRA not done. Report of prior CTA head, but will order MRA brain. Liver cysts present - referral to hepatology not currently indicated Echocardiogram - not currently indicated Genetic testing - has been done Lifestyle We counseled on need for aerobic exercise, large volume water drinking, low sodium / low red meat diet, restricting simple carbs, and weight loss. Patient with question on when next colonoscopy due. Reviewed prior results but no note of when due for repeat. Defer to PCP. Risk of progression Based on Irazabal class when TKV is complete, will approximate eGFR slope. Based on the PROPKD scoring system ([facility] Yu et al, J Am Soc Nephrol 27: 942- 951, 2016), risk of progression to ESRD by age 60 is low (19.3%) with predicated annual rate of eGFR decline of 2 mL/min per 1.73 m2 per year. Patient may benefit from statin both for hyperlipidemia/CV risk and theoretical benefit for TKV progression (Christo tejada al, CJASN 2014;9:889-96). Starting on rosuvastatin 5 mg daily today. #2 Chronic Kidney Disease Stage 2 Glomerular Filtration Rate 60 To 89 Patient with mildly proteinuric chronic kidney disease with baseline serum creatinine 0.6-0.8 mg/dLthat is stable. Etiology is PKD. We discussed with patient that the primary goal in slowing and preventing progression of CKD involves adequate blood pressure with RAAS blockade in effort to suppress proteinuria, glucose control with SGLT2i if possible, and weight control, as well as avoidance of nephrotoxins, like NSAIDs and iodinated contrast. All the recommended vaccinations are also importantin preventing infections that may exacerbate CKD. Referral to kidney transplant is not currently indicated. #3 Proteinuria In setting of hypertension and PKD. Goal blood pressure in CKD is 110-130/60-80 mmHg. Patient reports readings at home are trending higher and has no edema on exam. Patient is currently on metoprololand hydrochlorothiazide due to prior reaction to ACEi though she doesn't recall any reaction to ARB. We will trial losartan today and have patient repeat labs to ensure stability of kidney function and electrolytes. We have asked patient to monitor BP at home and report readings to us via the [facility]. #4 Iron Deficiency Anemia Screening Exam Goal hemoglobin in CKD is 9-11 g/dL. Iron stores are at goal. No indication for IV iron or DOLORES at this time. #5 Sciatica Patient with classic symptoms in posterior leg with radiation. Will trial gabapentin and advised onPT. Follow-up: return in 3 months with labs prior. Alida Colmenares M.D. [employer] Check Writer Nephrology and Hypertension [facility] documented in this encounter Plan of Treatment Scheduled Orders Name Type Priority Associated Diagnoses Orde r Schedule Renal Function Panel Lab Routine Polycystic Kidney Autosomal Dominant Proteinuria Expected: 10/10/2023 (Approximate), Expires: 10/10/2024 Albumin, Random, Urine Lab Routine Polycystic Kidney Autosomal Dominant Proteinuria Expected: 10/10/2023 (Approximate), Expires: 10/10/2024 Protein/Creatinine Ratio, Random, Urine Lab Routine Polycystic Kidney Autosomal Dominant Proteinuria Expected: 10/10/2023 (Approximate), Expires: 10/10/2024 Scheduled Referrals Name Type Priority Associated Diagnoses Order Schedule Nephrology and Hypertension office visit (clinic) Outpatient Referral Routine Expected: 10/10/2023 (Approximate), Expires: 10/10/2024 Nephrology nurse visit (clinic) Outpatient Referral Routine Expected: 08/10/2023 (Approximate), Expires: 10/10/2024 documented as of this encounter Results * MR Brain Angiogram without IV Contrast (09/29/2023 2:31 PM COUTURE DRESSMAKER) Anatomical Region Laterality Modality Head, Brain, Neuroradiology RST LOS, Neuroradiology [facility], [facility] N/A Magnetic Resonance 09/29/2023 3:24 PM COUTURE DRESSMAKER Impressions 09/29/2023 3:30 PM COUTURE DRESSMAKER No evidence for aneurysm. Narrative 09/29/2023 3:30 PM COUTURE DRESSMAKER EXAM: MR BRAIN ANGIOGRAM WITHOUT IV CONTRAST [...] This test has been modified from the product strategy director's instructions. Its performance characteristics were determined by [facility] in a manner consistent with CLIA requirements. This test has not been cleared or approved by the U.S. Food and Drug Administration. Creatinine 135 mg/dL 08/11/2023 9:15 AM CDT DTL Albumin/Creatinine Ratio 18 <25 mg/g 08/11/2023 10:29 AM CDT DTL Urine (Urine, Midstream) 08/11/2023 7:58 AM CDT 08/11/2023 8:25 AM CDT Alida Colmenares M.D. LAB URINE ORDERABLES [facility] [address] [place] [address], [facility] [address] [place] [address] * Protein/Creatinine Ratio, Random, Urine (08/11/2023 7:58 AM CDT) Protein, Total, Random, U 16 mg/dL 08/11/2023 9:15 AM CDT DTL Creatinine, Random, U 135 16 - 326 mg/dL 08/11/2023 9:15 AM CDT DTL Protein/Creatin ine Ratio 0.12 <0.18 mg/mg 08/11/2023 9:15 AM CDT DTL Urine (Urine, Midstream) 08/11/2023 7:58 AM CDT 08/11/2023 8:25 AM CDT Alida Colmenares M.D. LAB URINE ORDERABLES [facility] [address] [place] [address], [facility] [address] [place] [address] * Renal Function Panel (08/11/2023 7:51 AM [...] CDT Alida Colmenares M.D. LAB BLOOD ADD-ON [facility] [place] [address] [place] [address], [facility] DTL [facility] [address] [place] [address] * MR Abdomen without and with IV Contrast (07/14/2023 7:52 PM CDT) Anatomical Region Laterality Modality Abdomen, Abdominal RST LOS, Abdominal ARZ LOS, Abdominal FLA LOS N/A Magnetic Resonance 07/15/2023 8:22 AM CDT Impressions 07/15/2023 8:47 AM CDT Multiple hepatic and renal cysts, consistent with known diagnosis autosomal dominant polycystic kidney disease. No suspicious lesions. Volumes are slightly reduced compared to MRI 03/22/2021. Narrative 07/15/2023 8:47 AM CDT EXAM: ??MR ABDOMEN WITHOUT AND WITH IV CONTRAST COMPARISON: ??MRI 03/22/2021 FINDINGS: ?? Redemonstrated are multiple bilateral renal and hepatic cysts, consistent with diagnosis of autosomal dominant polycystic kidney disease. Findings this demonstrate internal high T1 signal, consistent with hemorrhagic or proteinaceous material. No abnormal mural nodularity or septations. No abnormal restricted diffusion. Hepatic and portal veins are widely patent. No suspicious hepatic lesions. Intrahepatic and extrahepatic biliary ducts are of normal caliber. Total Kidney Volume: 868 cc, versus 889 cc previously Right Kidney Volume: 383 cc, versus 394 cc previously Left Kidney Volume: 485 cc, versus 496 cc previously Total Liver Volume: 1553 cc Liver and kidney volumes were calculated using an artificial intelligence algorithm. Spleen, pancreas, adrenals and gallbladder are negative. No abdominal lymphadenopathy. No suspicious osseous lesions. Procedure Note Levy Blount M.B., B.Ch., B.A.O. - 07/15/2023 EXAM: MR ABDOMEN WITHOUT AND WITH IV CONTRAST COMPARISON: MRI 03/22/2021 FINDINGS: Redemonstrated are multiple bilateral renal and hepatic cysts, consistentwith diagnosis of autosomal dominant polycystic kidney disease. Findings this demonstrateinternal high T1 signal, consistent with hemorrhagic or proteinaceous material. No abnormal muralnodularity or septations. No abnormal restricted diffusion. Hepatic and portal veins are widely patent. No suspicious hepatic lesions.Intrahepatic and extrahepatic biliary ducts are of normal caliber. Total Kidney Volume: 868 cc, versus 889 cc previously Right Kidney Volume: 383 cc, versus 394 cc previously Left Kidney Volume: 485 cc, versus 496 cc previously Total Liver Volume: 1553 cc Liver and kidney volumes were calculated using an artificial intelligencealgorithm. Spleen, pancreas, adrenals and gallbladder are negative. No abdominallymphadenopathy. No suspicious osseous lesions. IMPRESSION: Multiple hepatic and renal cysts, consistent with known diagnosisautosomal dominant polycystic kidney disease. No suspicious lesions. Volumes are slightly reducedcompared to MRI 03/22/2021. Alida Colmenares M.D. [facility] [place]ED[place] * Transferrin (07/11/2023 8:48 AM CDT) Pathologist [facility] Transferrin, S 253 200 - 360 mg/dL 07/11/2023 3:40 PM CDT DTL Blood (Blood, Venous) 07/11/2023 8:48 AM CDT 07/11/2023 3:01 PM CDT Alida Colmenares M.D. LAB BLOOD ADD-ON [facility] [address] [place] [address], [facility] [address] [place] [address] * Ferritin (07/11/2023 8:48 AM CDT) Pathologist [facility] Ferritin, S 99 11 - 328 mcg/L 07/11/2023 3:40 PM CDT DTL Blood (Blood, Venous) 07/11/2023 8:48 AM CDT 07/11/2023 3:01 PM CDT Alida Colmenares M.D. LAB BLOOD ADD-ON Performing Organization Address City/[facility]/ZIP Co de Phone Number [facility] [place] [address] [place] [address], [facility] [address] [place] [address] * Iron and Total Iron-Binding Capacity (07/11/2023 8:48 AM CDT) Pathologist [facility] Iron 110 35 - 145 mcg/dL 07/11/2023 3:40 PM CDT DTL Total Iron Binding Capacity 299 250 - 400 mcg/dL 07/11/2023 3:40 PM CDT DTL Percent Saturation 37 14 - 50 % 07/11/2023 3:40 PM CDT DTL Blood (Blood, Venous) 07/11/2023 8:48 AM CDT 07/11/2023 3:01 PM CDT Alida Colmenares M.D. LAB BLOOD ADD-ON Performing Organization Address City/[facility]/ZIP Co de Phone Number [facility] [place] [address] [place] [address], [facility] [address] [place] [address] documented in this encounter Visit Diagnoses Diagnosis Polycystic Kidney Autosomal Dominant- Primary Chronic Kidney Disease Stage 2 Glomerular Filtration Rate 60 To 89 Proteinuria Iron Deficiency Anemia Screening Exam Sciatica Left Kidney And Ureter Disorder Polycystic Kidney Autosomal Dominant Proteinuria documented in this encounter Additional Health Concerns Assessment Noted Time PHQ-9 Depression Total Score: 7 05/03/20 22 10:25 AM CDT documented as of this encounter Care Teams Bond Clerk Relationship Specialty Start Date End Date Elsewhere, Pcp PCP - General Internal Medicine 12/18/21 documented as of this encounter
--- OUTSIDE RECORDS SUMMARY | 2023-10-30 08:09 | XMS_ITS | Encounter Summary ---
Author Name Unknown Organization [facility] Address [address] [place] [address] Care Team Providers Care Rental Car Porter Name Role Phone Elsewhere, Pcp Primary Care Provider Unavailabl e Encounter Details Date Type Department Care Team (Latest Contact Info) Description 07/11/2023 8:34 AM CDT - 07/11/2023 11:59 PM CDT Hospital Encounter Department of Laboratory Medicine and Pathology, [facility] in [place], [place] [address] [place] [address] Alida Colmenares M.D. [address] [place] [address] Polycystic Kidney Disease Discharge Disposition: Home or Self Care Social [...] any clubs o r organizations such as congregational groups, unions, fraternal or athletic groups, or [...] Answer Date Recorded PHQ-2 Score 1 05/03/2022 [facility] of Occupat ional Health - Occupational Stress [...] place to sleep or slept in a longterm (including now)? No 01/08/2023 Depression Answer Date [...] 30 tablet 11 07/11/2023 multivit,stress formula-zinc (b aduhjgx-R-H-zinc) tablet Take 1 tablet by mouth daily. [...] Procedure Name Priority Date/Time Associated Diagnosis Comments DIPSTICK, U Routine 07/11/2023 8:57 AM CDT MICROSCOPIC AUTOMATED Routine 07/11/2023 8:57 AM CDT PH, U Routine 07/11/2023 8:57 AM CDT ALBUMIN, RANDOM, U Routine 07/11/2023 8: 57 AM CDT Polycystic Kidney Disease PROTEIN/CREATININE RATIO, RANDOM, URINE Routine 07/11/2023 8:57 AM CDT Polycystic Kidney Disease OSMOLALITY, U Routine 07/11/2023 8:57 AM CDT URINALYSIS WITH MICROSCOPIC Routine 07/11/2023 8:57 AM CDT Polycystic Kidney Disease documented in this encounter Results * Dipstick, Urine (07/11/2023 8:57 AM CDT) Hemoglobin, QL, U Negative Negative 07/11/2023 9:30 AM CDT DTL Leukocyte Esterase, U Negative Negative 07/11/2023 9:30 AM CDT DTL Nitrite, U Negative Negative 07/11/2023 9:30 AM CDT DTL Ketone, U Negative Negative mg/dL 07/11/2023 9:30 AM CDT DTL Glucose, U Negative Negative mg/dL 07/11/2023 9:30 AM CDT DTL Urine 07/11/2023 8:57 AM CDT 07/11/2023 9:09 AM CDT Soft Results Interface LAB URINE ORDERAB LES Performing Organization Address City/[facility]/ZIP Co de Phone Number [facility] [address] [place] [address], [facility] [address] [place] [address] * pH, Urine (07/11/2023 8:57 AM CDT) Pathologist [facility] pH, U 6.5 4.5 - 8.0 07/11/2023 10: 07 AM CDT DTL Urine 07/11/2023 8:57 AM CDT 07/11/2023 9:09 AM CDT Soft Results Interface LAB URINE ORDERAB LES Performing Organization Address City/[facility]/ZIP Co de Phone Number [facility] [address] [place] [address], [facility] [address] [place] [address] * Osmolality, Urine (07/11/2023 8:57 AM CDT) Pathologist [facility] Osmolality, U 216 150 - 1150 mOsm/kg 07/11/2023 10:07 AM CDT DTL Urine 07/11/2023 8:57 AM CDT 07/11/2023 9:09 AM CDT Soft Results Interface LAB URINE ORDERAB LES Performing Organization Address [facility] Co de Phone Number [facility] [address] [place] [address], [facility] [address] [place] [address] * Microscopic Automated (07/11/2023 8:57 AM CDT) Microscopy Normal 07/11/2023 9:30 AM CDT DTL Squamous Epithelial Cells, U 1-3 /hpf 07/11/2023 9:30 AM CDT DTL Urine 07/11/2023 8:57 AM CDT 07/11/2023 9:09 AM CDT Soft Results Interface LAB URINE ORDERAB LES Performing Organization Address [facility] Co de Phone Number [facility] [address] [place] [address], [facility] [address] [place] [address] * (ABNORMAL) Urinalysis with Microscopic: Urine, Midstream (07/11/2023 8:57 AM CDT) Source Urine, Urine, Midstream 07/11/2023 9:09 AM CDT DTL Color, U Yellow 07/11/2023 9:09 AM CDT DTL Clarity, U Clear 07/11/2023 9:09 AM CDT DTL Protein, U 7 <26 mg/dL 07/11/2023 10:02 AM CDT DTL Protein/Osmol ality 0.32 <0.42 ratio 07/11/2023 10:07 AM CDT DTL Predicted 24 HR Protein, U 240(H) <229 mg/24 h 07/11/2023 10:07 AM CDT DTL Predicted Range 59-974 mg/24 h 07/11/2023 10:07 AM CDT DTL Urine (Urine, Midstream) 07/11/2023 8:57 AM CDT 07/11/2023 9:09 AM CDT Alida Colmenares M.D. LAB URINE ORDERABLES Performing Organization Address [facility] de Phone Number [facility] [address] [place] [address], [facility] [address] [place] [address] * Protein/Creatinine Ratio, Random, Urine (07/11/2023 8:57 AM CDT) Protein, Total, Random, U 7 mg/dL 07/11/2023 10:02 AM CDT DTL Creatinine, Random, U 54 16 - 326 mg/dL 07/11/2023 10:02 AM CDT DTL Protein/Creatin ine Ratio 0.13 <0.18 mg/mg 07/11/2023 10:02 AM CDT DTL Urine (Urine, Midstream) 07/11/2023 8:57 AM CDT 07/11/2023 9:09 AM CDT Alida Colmenares M.D. LAB URINE ORDERABLES Performing Organization Address [facility] Co de Phone Number [facility] [address] [place] [address], [facility] [address] [place] [address] * (ABNORMAL) Albumin, Random, Urine (07/11/2023 8:57 AM CDT) Albumin, Random, U 25.3 mg/L 2022 10:34 AM CDT DTL Comment: ----ADDITIONAL INFORMATION---- This test has been modified from the principal software engineer's instructions. Its performance characteristics were determined by [facility] in a manner consistent with CLIA requirements. This test has not been cleared or approved by the U.S. Food and Drug Administration. Creatinine 54 mg/dL 07/11/2023 10:02 AM CDT DTL Albumin/Creatinine Ratio 47(H) <25 mg/g 07/11/2023 10:34 AM CDT DTL Urine (Urine, Midstream) 07/11/2023 8:57 AM CDT 07/11/2023 9:09 AM CDT Alida Colmenares M.D. LAB URINE ORDERABLES [facility] [address] [place] [address], [facility] [address] [place] [address] documented in this encounter Visit Diagnoses Diagnosis Polycystic Kidney Disease documented in this encounter Additional Health Concerns Assessment Noted Time PHQ-9 Depression Total Score: 7 05/03/20 10:25 AM CDT documented as of this encounter Care Teams Rental Car Porter Relationship Specialty Start Date End Date Elsewhere, Pcp PCP - General Internal Medicine 12/18/21 documented as of this encounter
--- OUTSIDE RECORDS SUMMARY | 2023-10-30 08:09 | XMS_ITS | Encounter Summary ---
Author Name Unknown Organization [facility] Address [address] [place] [address] Care Team Providers Care Finance And Administration Manager Name Role Phone Elsewhere, Pcp Primary Care Provider Unavailabl e Reason for Referral * Outpatient (Routine) - Closed Specialty Diagnoses / Procedures Referred By Irma torrez Referred To Contact Nephrology and Hypertension Alida Colmenares M.D. [address] [place] [address] [facility] Referral ID Status Reason Start Date Expiration Date Visits Re quested Visits Authorized [id number] Closed 08/11/2023 08/10/2026 1 1 * Outpatient (Routine) - Closed Specialty Diagnoses / Procedures Referred By Irma torrez Referred To Contact Nutrition Diagnoses Hypertension Essential Primary Alida Colmenares M.D. [address] [place] [address] [facility] Referral ID Status Reason Start Date Expiration Date Visits Re quested Visits Authorized [id number] Closed 08/11/2023 08/10/2024 1 1 Scheduling Instructions This appointment should ideally be scheduled AFTER the Communications Representative Consults, but must at least be scheduled 48 hours after 24-hour urine collection is complete. Virtual visit is acceptable for this dietitian visit. Reason for Visit * Reason Comments Hypertension * Outpatient (Routine) - Closed Specialty Diagnoses / Procedures Referred By Irma torrez Referred To Contact Nephrology and Hypertension Alida Colmenares M.D. [address] [place] [phone] [facility] Referral ID Status Reason Start Date Expiration Date Visits Re quested Visits Authorized [id number] Closed 07/11/2023 07/10/2026 1 1 Encounter Details Date Type Department Care Team (Late st Contact Info) Description 08/11/2023 8:30 AM CDT Nurse Only Division of Nephrology and Hypertension in [place], [place] [address] [place] [phone] Alida Colmenares M.D. [address] [place] [phone] Liliana Harley R.N. [address] [place] [phone] Hypertension Social History Tobacco Use Types Packs/Day Years [...] often do you attend chur ch or muslim services? More than 4 times per year 01/08/2023 Do you belong to any clubs o r organizations such as mormonism groups, unions, fraternal or athletic groups, or [...] Answer Date Recorded PHQ-2 Score 1 05/03/2022 [facility] - Occupational Stress Questionnaire Answer [...] Pulse 80 08/11/2023 9:09 AM CDT Temperature - - Respiratory Rate - - Oxygen Saturation - - Inhaled Oxygen Concentration - - Weight 76.5 kg (168 lb 10.4 oz) 08/11/2023 9:09 AM CDT Height - - Body Mass Index 30.26 07/11/2023 1:24 PM CDT documented in this encounter Progress Notes * Liliana Harley R.N. - 08/11/2023 8:30 AM CDT Provider Name: Dr. Colmenares Reason for Visit: New short-term patient Relevant History: hypertension, kidney disease, and hyperlipidemia 07/11/2023 started Losartan 50 mg daily, 07/18/2023 stopped HCTZ. She developed heart palpitations with taking Losartan 07/11/2023 started Crestor and has felt dizzy and nauseous Preferred arm use for BP: Either. Date last assessed: 08/11/2023 Home BP Monitor: Yes Date last assessed: recently at PCP. Would like to bring it to [place] to have checked when she comes again 09/29. Exercise: Yes walks three miles daily during nice weather, elliptical 30-45 minutes daily otherwise Patient's weight is: Patient's weight is stable. Tobacco Use: Social History Tobacco Use Smoking Status Former Packs/day: 0.00 Types: Cigarettes Start date: 10/13/1983 Quit date: 10/13/1988 Years since quittin.8 Smokeless Tobacco Never Alcohol Use: Social History Substance and Sexual Activity Alcohol Use Yes Alcohol/week: 1.0 standard drink of alcohol Types: 1 Glasses of wine per week Comment: occasionally Dietary Assessment: does not add salt to food, does not add salt when cooking, limits processed foods, reads food labels for sodium content, eats a low-protein diet, and drinks no caffeine per day, eight glasses water daily. Would like to see gas burner operator when she comes in September Home blood pressure trends are 136/79, was running 156/85-92. Was running 119/60-70 while taking both Losartan and HCTZ There were no vitals filed for this visit. Plan of Care: In-office blood pressures are: above goal. Dizziness/Lightheadedness: has had dizziness and nausea at times. Reviewed low sodium diet, with goal of 2,000 mg or less per day. Avoid processed foods. Maintain good hydration, goal of 2-3 liters of fluid intake daily. Recommend gradually increasing exercise witha goal of 30 minutes per day, most days of the week, as tolerated. Avoid NSAIDs and decongestants. Recommend having home blood pressure monitor assessed for accuracy on an annual basis. Instructed patient to call Nephrology & Hypertension Nurses if blood pressure is greater than 130/80 or less than 100 systolic or develops dizziness/lightheadedness. Medications: Continue on current medications for now. Patient Contact Information: Preferred contact: online message documented in this encounter Miscellaneous Notes * Addendum Note - Liliana Harley R.N. - 08/11/2023 8:30 AM CDTAddended by: LILIANA HARLEY on: 08/11/2023 10:50 AM Modules accepted: Orders documented in this encounter Plan of Treatment Scheduled Referrals Name Type Priority Associated Diagnoses Order Schedule Nutrition - Nephrology medical nutrition therapy consult (clinic) Outpatient Referral Routine Hypertension Essential Primary Expected: 09/29/2023, Expires: 11/11/2024 Nephrology nurse visit (clinic) Outpatient Referral Routine Expected: 09/29/2023, Expires: 11/11/2024 documented as of this encounter Visit Diagnoses Diagnosis Hypertension Essential Primary- Primary documented in this encounter Additional Health Concerns Assessment Noted Time PHQ-9 Depression Total Score: 7 05/03/20 22 10:25 AM CDT documented as of this encounter Care Teams Finance And Administration Manager Relationship Specialty Start Date End Date Elsewhere, Pcp PCP - General Internal Medicine 12/18/21 documented as of this encounter
--- OUTSIDE RECORDS SUMMARY | 2023-10-30 08:09 | XMS_ITS | Encounter Summary ---
Author Name Unknown Organization [facility] Address [address] [place] [address] Care Team Providers Care Optician Apprentice Dispensing Name Role Phone Elsewhere, Pcp Primary Care Provider Unavailabl e Encounter Details Date Type Department Care Team (Late st Contact Info) Description 02/02/2016 Historical Ophthalmology [facility] Tyler Smith Jr., M.D. [address] [phone] Social History Tobacco Use Types Packs/Day Years Used Date Smoking Tobacco: Never Assessed Sex and Gender Information Value Date Recorded Sex Assigned at Female 07/06/2018 4:10 PM CDT Gender Identity Female 07/06/2018 4:10 PM CDT Sexual Orientation Straight 07/06/2018 4: 10 PM CDT documented as of this encounter Progress Notes * Tyler Smith M.D. - 02/02/2016 8:18 AM CDT Eye General CHIEF COMPLAINT CE HISTORY OF PRESENT ILLNESS Pt here for complete eye exam Pt states she has noticed some blur in the distance vision wears 1 ctx in the L eye at times extreme H20 +1.50 med ctx L eye IMPRESSION / REPORT / PLAN #1 Mild myopia Stable #2 Presbyopia Increase contact power by +0.25 OS RTo 1 year DIAGNOSIS #1 Mild myopia #2 Presbyopia CDM Reports - EYEGEN Id: [id number] Status: Fnl documented in this encounter Plan of Treatment Not on file documented as of this encounter Visit Diagnoses Not on filedocumented in this encounter Additional Health Concerns Assessment Noted Time PHQ-9 Depression Total Score: 0 10/15/19 14 12:16 PM SPECIAL EDUCATION ADMINISTRATOR documented as of this encounter Care Teams Optician Apprentice Dispensing Relationship Specialty Start Date End Date Elsewhere, Pcp PCP - General Internal Medicine 12/18/21 documented as of this encounter
--- OUTSIDE RECORDS SUMMARY | 2023-10-30 08:09 | XMS_ITS | Encounter Summary ---
Author Name Unknown Organization [facility] Address [address] [place] [address] Care Team Providers Care Therapist Phys Name Role Phone Elsewhere, Pcp Primary Care Provider Unavailabl e Reason for Visit * Reason Comments Med Refill Encounter Details Date Type Department Care Team (Late st Contact Info) Description 05/05/2023 Refill Division of Nephrology and Hypertension in [place], [place] [address] [place] [address] Jany Gupta M.D. [address] [place] [phone] Med Refill Social History Tobacco Use Types Packs/Day Years Used Date Smoking Tobacco: Former Cigarettes Smokeless Tobacco: Never Alcohol Use Standard Drinks/Week Comments Yes 0 [...] How often do you attend chur or buddhism services? More than 4 times per year [...] Answer Date Recorded PHQ-2 Score 1 05/03/2022 [facility] of Occupat ionmo Health - Occupational Stress Questionnaire Answer Date [...] PM CDT documented as of this encounter Plan of Treatment Not on file documented as of this encounter Visit Diagnoses Not on filedocumented in this encounter Additional Health Concerns Assessment Noted Time PHQ-9 Depression Total Score: 7 05/03/20 10:25 AM CDT documented as of this encounter Care Teams Therapist Phys Relationship Specialty Start Date End Date Elsewhere, Pcp PCP - General Internal Medicine 12/18/21 documented as of this encounter
--- OUTSIDE RECORDS SUMMARY | 2023-10-30 08:09 | XMS_ITS | Encounter Summary ---
Author Name Unknown Organization [facility] Address [address] [place] [address] Care Team Providers Care Ortho Assistant Name Role Phone Elsewhere, Pcp Primary Care Provider Unavailabl e Reason for Visit * Reason Onset Date Comments Pre-visit Intake 07/09/2023 Encounter Details Date Type Department Care Team (Latest Contact Info) Description 07/09/2023 7:45 AM CDT Clinical Communication Virtual Review in [place], [place] [address] [place], [place] [phone] Pre-visit Intake Social History Tobacco Use Types Packs/Day Years [...] often do you attend chur ch or episcopalian services? More than 4 times per year 01/08/2023 Do you belong to any clubs o r organizations such as sikhism groups, unions, fraternal or athletic groups, or [...] Date Recorded PHQ-2 Score 1 05/03/2022 [facility] of Occupat ional [facility] - Occupational Stress Questionnaire Answer Date Recorded [...] place to sleep or slept in a snf (including now)? No 01/08/2023 Depression Answer Date [...] documented as of this encounter Care Teams Ortho Assistant Relationship Specialty Start Date End Date Elsewhere, Pcp PCP - General Internal Medicine 12/18/21 documented as of this encounter
--- OUTSIDE RECORDS SUMMARY | 2023-10-30 08:09 | XMS_ITS | Clinical Summary ---
Author Name Unknown Organization [email or web address] Address [place], [place] [address] Care Team Providers Care Injury Prevention Coordinator Name Role Phone Sonia Chan NP Primary Care Provider [phone] Allergies Active Allergy Reactions Criticality Noted Date Comments Irbesartan Palpitations Medium 07/19/2016 Lisinopril Rash Medium 07/19/2016 Medications Medication Sig Dispensed Refills Start Date End Date Status metoprolol succinate (TOPROL XL) 50 mg sustained-release tablet Take 1 tablet by mouth once daily. 90 tablet 0 02/20/2016 Active valACYclovir (VALTREX) 500 mg tablet Take 1 tablet by mouth 2 times daily if needed for outbreaks. 6 tablet 3 02/20/2016 Active ferrous sulfate, 65 mg elemental, tablet Take 1 tablet by mouth. 0 03/25/2014 Active oxyCODONE (ROXICODONE) 5 mg immediate release tabletIndications:Lef t elbow pain Take 1 Tablet (5 mg) by mouth every 4 hours if needed for Pain. 6 Tablet 0 05/02/2021 Active rx oxyCODONE 5 mg (ROXICODONE) tablet (ED DC MED)Indications:Left elbow pain Take 1 Tablet (5 mg) by mouth every 4 hours if needed for Pain. 4 Tablet 0 05/02/2021 Active Active Problems Problem Noted Date Diagnosed Date Rosacea 09/11/2007 Dysthymic disorder 04/02/2007 Polycystic kidney, autosomal dominant 04/02/2007 Overview: Followed regularly at [facility]. Unspecified essential hypertension 04/02/2007 Palpitations 04/02/2007 Overview: PVCs Immunizations Name Administration Dates Next Due Hepatitis A (Adult) 12/21/2012 Influenza Virus, Unspecified 10/27/2015, 07/25/2014,07/30/2013,07/13/2012 ,12/24/2011,08/01/2010,08/02/2008, 7 Influenza, High-dose Inactivated 10/27/2015 Influenza, IIV3 (Age >=3 years) 08/10/2018,08/29,08/10/2012 Influenza, IIV4 08/29/2017 Influenza, IIV4 (=>6mos) MDV 07/19/2016,07/28/20 15 Td (Age >=7 Years) 06/13/2005 Tdap 12/21/2012 Family History Medical History Relation Name Comments Stroke Father Genetic Mother polycystic abdiaziz hernandez; s/p transplant Relation Name Status Comments Father Alive Mother Alive Social History Tobacco Use Types Packs/Day Years Used Date Smoking Tobacco: Former Cigarettes 1 10 0 10/13/1979 - 10/13/1989 Smokeless Tobacco: Never Tobacco Cessation:Counseling Given: Yes Alcohol Use Standard Drinks/Week Comments Yes 0 (1 standard drink = 0.6 oz pur e alcohol) Occasional PHQ-2 Answer Date Recorded PHQ-2 Score 0 01/14/2019 Sex and Gender Information Value Date Recorded Sex Assigned at Not on file Gender Identity Not on file Sexual Orientation Not on file Obstetrics History Para Term AB IAB SAB Ectopic Multiple Livin g Live Births 3 3 3 0 0 0 0 0 3 Date Outcome GA Total Labor Labor/2nd/3rd Weight Sex Delivery Anes PTL Dilcia A1 A5 Name Cl in Term Term Term Comments secondary to CPD Last Filed Vital Signs Vital Sign Reading Time Taken Comments Blood Pressure 147/84 06/12/2022 9:45 PM CDT Pulse 72 06/12/2022 8:36 PM CDT Temperature 36.8 ??C (98.2 ??F) 06/12/2022 8:36 PM CD T Respiratory Rate 16 06/12/2022 8:36 PM CDT Oxygen Saturation 97% 06/12/2022 8:36 PM CDT Inhaled Oxygen Concentration - - Weight 74.4 kg (164 lb) 06/12/2022 8:36 PM CDT Height 159 cm (5' 2.6) 06/12/2022 8:36 PM CDT Body Mass Index 29.42 06/12/2022 8:36 PM CDT Plan of Treatment Health Maintenance Due Date Last Done Comments HIV for age 15-65 1982 Hepatitis C screening for age 18-79 1985 Colonoscopy through age 75 2012 Lipids for age 45-75 2012 10/01/2007 Mammogram for age 45-75 2012 10/01/2007 Zoster (shingles) series for age 50+ (1 of 2) 2017 BMI (ht and wt on same day) for age 18+ 01/15/2020 01/14/2019, 11/05/2017 Depression screening for age 12+ 01/15/2020 01/14/2019 Tetanus booster 12/21/2022 12/21/2012, 06/13/2005 COVID-19 vaccine series (2022- season) 2023 03/05/2022, 08/30/2021, 01/24/2021, Additional history exists Influenza for age 50-64 06/13/2023 08/10/20 18, 08/29/2017, 08/29/2017, Additional history exists Pap test for age 21-65 11/27/2024 2, 11/27/2021, 09/09/2007 Tdap Completed 12/21/2012 Pneumococcal series for age 6-64 Aged Out No longer eligible based on patient's age to complete this topic Care Teams Injury Prevention Coordinator Relationship Specialty Start Date End Date Sonia Chan NP [address] [place] [address] PCP - General Emergency Medicine 06/12/22
--- OUTSIDE RECORDS SUMMARY | 2023-10-30 08:09 | XMS_ITS | Encounter Summary ---
Author Name Unknown Organization [facility] Address [address] [place] [address] Care Team Providers Care Gunite Mixer Name Role Phone Elsewhere, Pcp Primary Care Provider Unavailabl e Reason for Referral * MRI/CAT/PET Scan (Routine) - Closed Specialty Diagnoses / Procedures Referred By Irma torrez Referred To Contact Radiology Diagnoses Kidney And Ureter Disorder Procedures MR Abdomen without and with IV Contrast Alida Colmenares M.D. [address] [place] [address] [facility] Referral ID Status Reason Start Date Expiration Date Visits Re quested Visits Authorized [id number] Closed 07/11/2023 07/10/2024 1 1 Reason for Visit * MRI/CAT/PET Scan (Routine) - Closed Specialty Diagnoses / Procedures Referred By Irma torrez Referred To Contact Radiology Diagnoses Kidney And Ureter Disorder Procedures MR Abdomen without and with IV Contrast Alida Colmenares M.D. [address] [place] [address] [facility] Referral ID Status Reason Start Date Expiration Date Visits Re quested Visits Authorized [id number] Closed 07/11/2023 07/10/2024 1 1 Encounter Details Date Type Department Care Team (Latest Contact Info) Description 07/14/2023 7:14 AM CDT - 07/14/2023 11:59 PM CDT Hospital Encounter Department of Radiology, [facility], in [place], [place] [address] [place] [address] Alida Colmenares M.D. [address] [place] [address] Kidney And Ureter Disorder Discharge Disposition: Home or Self Care Social [...] often do you attend chur ch or bahai services? More than 4 times per year 01/08/2023 Do you belong to any clubs o r organizations such as episcopal groups, unions, fraternal or athletic groups, or [...] Answer Date Recorded PHQ-2 Score 1 05/03/2022 [facility] [place] of Occupat ional Health - Occupational Stress [...] 30 tablet 11 07/11/2023 multivit,stress formula-zinc (b vrlxnsz-T-S-zinc) tablet Take 1 tablet by mouth daily. [...] Name Priority Date/Time Associated Diagnosis Comments MR ABDOMEN WITHOUT AND WITH IV CONTRAST RAD - Routine (most inpatients and all outpatients) 07/14/2023 7:52 PM CDT Kidney And Ureter Disorder documented in this encounter Results * MR Abdomen without and with IV [...] are slightly reducedcompared to MRI 03/22/2021. Alida VARGAS MRI PROCEDURES documented in this encounter Visit Diagnoses Diagnosis Kidney And Ureter Disorder documented in this encounter Administered Medications Inactive Administered Medications - up to 3 most recent administrations Medication Order MAR Action Action Date Dose Rate Site gadobutrol injection 0.01-30 mL (GADAVIST) 0.01-30 mL, intravenous, Once in imaging, contrast, Starting on 07/14/23 at 1910, For 1 dose, Imaging Protocol Orders, Dose per Radiant Medication Guidelines Intrathecal doses greater than 0.25 mL not recommended. Given 07/14/2023 7:51 PM CDT 8 mL sodium chloride (PF) 0.9 % injection 1-100 mL 1-100 mL, intravenous, Once, On 07/14/23 at 1930, For 1 dose, Imaging Protocol Orders Given 07/14/2023 7:51 PM CDT 40 mL documented in this encounter Additional Health Concerns Assessment Noted Time PHQ-9 Depression Total Score: 7 05/03/20 22 10:25 AM CDT documented as of this encounter Care Teams Gunite Mixer Relationship Specialty Start Date End Date Elsewhere, Pcp PCP - General Internal Medicine 12/18/21 documented as of this encounter
--- OUTSIDE RECORDS SUMMARY | 2023-10-30 08:09 | XMS_ITS | Encounter Summary ---
Author Name Unknown Organization [facility] Address [address] [place] [address] Care Team Providers Care Supervisor Pigment Making Name Role Phone Elsewhere, Pcp Primary Care Provider Unavailabl e Encounter Details Date Type Department Care Team (Late st Contact Info) Description 01/27/2015 Historical Ophthalmology [facility] Tyler Smith Jr., M.D. [address], [place] [phone] Social History Tobacco Use Types Packs/Day Years Used Date Smoking Tobacco: Never Assessed Sex and Gender Information Value Date Recorded Sex Assigned at Female 07/06/2018 4:10 PM CDT Gender Identity Female 07/06/2018 4:10 PM CDT Sexual Orientation Straight 07/06/2018 4: 10 PM CDT documented as of this encounter Progress Notes * Tyler Smith M.D. - 01/27/2015 8:03 AM CDT Contact Lens Exam IMPRESSION / REPORT / PLAN See EYE GEN note; OK to continue CL CDM Reports - EYECL Id: [id number] Status: Fnl documented in this encounter Plan of Treatment Not on file documented as of this encounter Visit Diagnoses Not on filedocumented in this encounter Additional Health Concerns Assessment Noted Time PHQ-9 Depression Total Score: 0 10/15/19 14 12:16 PM PILL COATER documented as of this encounter Care Teams Supervisor Pigment Making Relationship Specialty Start Date End Date Elsewhere, Pcp PCP - General Internal Medicine 12/18/21 documented as of this encounter
--- OUTSIDE RECORDS SUMMARY | 2023-10-30 08:09 | XMS_ITS | Encounter Summary ---
Author Name Unknown Organization [facility] Address [address] [place] [address] Care Team Providers Care Project Manager Entertainment And Media Name Role Phone Elsewhere, Pcp Primary Care Provider Unavailabl e Reason for Visit * Reason Onset Date Comments Pre-visit Testing Orders 05/14/2023 Encounter Details Date Type Department Care Team (Latest Contact Info) Description 05/14/2023 Clinical Communication Division of Nephrology and Hypertension in [place], [place] [address] [place] [address] Alida Colmenares M.D. [address] [place] [address] Pre-visit Testing Orders Social History Tobacco Use Types Packs/Day Years [...] week 01/08/2023 How often do you attend [facility] or sikhism services? More than 4 times per year 01/08/2023 Do you belong to any clubs o r organizations such as muslim groups, unions, fraternal or athletic groups, or [...] Answer Date Recorded PHQ-2 Score 1 05/03/2022 [facility] of Occupat ional Health - Occupational [...] place to sleep or slept in a jail (including now)? No 01/08/2023 Depression Answer Date [...] on file documented as of this encounter Results * (ABNORMAL) Urinalysis with Microscopic: Urine, Midstream [...] M.D. LAB URINE ORDERABLES Performing Organization Address City/[facility]/ZIP Co de Phone Number [facility] [address] [place] [address], [facility] [address] [place] [address] * Protein/Creatinine Ratio, Random, Urine (07/11/2023 8:57 AM CDT) Protein, Total, Random, U 7 mg/dL 07/11/2023 10:02 AM CDT DTL Creatinine, Random, U 54 16 - 326 mg/dL 07/11/2023 10:02 AM CDT DTL Protein/Creatin ine Ratio 0.13 <0.18 mg/mg 07/11/2023 10:02 AM CDT DTL Urine (Urine, Midstream) 07/11/2023 8:57 AM CDT 07/11/2023 9:09 AM CDT Alida Colmenares M.D. LAB URINE ORDERABLES [facility] [address] [place] [address], [facility] [address] [place] [address] * (ABNORMAL) Albumin, Random, Urine (07/11/2023 8:57 AM CDT) Pathologist [facility] Albumin, Random, U 25.3 mg/L 2022 10:34 AM CDT DT Comment: ----ADDITIONAL INFORMATION---- This test has been modified from the phone specialist's instructions. Its performance characteristics were determined by [facility] in a manner consistent with CLIA requirements. This test has not been cleared or approved by the U.S. Food and Drug Administration. Creatinine 54 mg/dL 07/11/2023 10:02 AM CDT DT Albumin/Creatinine Ratio 47(H) <25 mg/g 07/11/2023 10:34 AM CDT DTL Urine (Urine, Midstream) 07/11/2023 8:57 AM CDT 07/11/2023 9:09 AM CDT Alida Colmenares M.D. LAB URINE ORDERABLES [facility] [address] [place], [place] [id number] [address] * (ABNORMAL) Lipid Panel (07/11/2023 8:51 AM CDT) Pathologist [facility] Triglycerides 76 mg/dL 07/11/2023 9:45 AM CDT DT Comment: ----REFERENCE VALUE---- Normal: <150 mg/dL Borderline High: 150-199 mg/dL High: 200-499 mg/dL Very High: > or =500 mg/dL Cholesterol, Total 257(H) mg/dL 2022 9:45 AM CDT DT Comment: ----REFERENCE VALUE---- Desirable: < 200 mg/dL Borderline High: 200 - 239 mg/dL High: > or = 240 mg/dL Cholesterol, LDL, Calculated 165(H) mg/dL 07/11/2023 9:45 AM CDT DT Comment: ----REFERENCE VALUE---- Desirable: <100 mg/dL Above Desirable: 100-129 mg/dL Borderline High: 130-159 mg/dL High: 160-189 mg/dL Very High: >=190 mg/dL ----ADDITIONAL INFORMATION---- LDL cholesterol calculated using the Price/NIH equation. Cholesterol, HDL, S 79 >=50 mg/dL 07/11/2023 9:45 AM CDT DTL Cholesterol, Non-HDL, Calculated 178(H) mg/dL 07/11/2023 9:45 AM CDT DTL Comment: ----REFERENCE VALUE---- Desirable: <130 mg/dL Above Desirable: 130-159 mg/dL Borderline High: 160-189 mg/dL High: 190-219 mg/dL Very High: > or =220 mg/dL Fasting (8 HR or more) Yes 07/11/2023 9:29 AM CDT DTL Blood (Blood, Venous) 07/11/2023 8:51 AM CDT 07/11/2023 9:29 AM CDT Alida Colmenares M.D. LAB BLOOD ADD-ON [facility] [address] [place] [address], [facility] [address] [place] [address] * Renal Function Panel (07/11/2023 8:51 AM CDT) Potassium, S 4.2 3.6 - 5.2 mmol/L 07/11/2023 9:45 AM CDT DTL Sodium, S 140 135 - 145 mmol/L 07/11/2023 9:45 AM CDT DTL Chloride, S 101 98 - 107 mmol/L 07/11/2023 9:45 AM CDT DTL Bicarbonate, S 28 22 - 29 mmol/L 07/11/2023 9:45 AM CDT DTL Anion Gap 11 7 - 15 07/11/2023 9:45 AM CDT DTL BUN (Blood Urea Nitrogen), S 14 6 - 21 mg/dL 07/11/2023 9:45 AM CDT DTL Creatinine 0.88 0.59 - 1.04 mg/dL 07/11/2023 9:45 AM CDT DTL Estimated GFR (eGFR) 78 >=60 mL/min/BSA 07/11/2023 9:45 AM CDT DTL Comment: Estimated GFR calculated using the 2020 CKD_EPI creatinine equation. Calcium, Total, S 9.5 8.6 - 10.0 mg/dL 07/11/2023 9:45 AM CDT DTL Glucose, S 92 70 - 140 mg/dL 07/11/2023 9:45 AM CDT DTL Albumin, S 4.5 3.5 - 5.0 g/dL 07/11/2023 9:45 AM CDT DTL Phosphorus (Inorganic), S 3.4 2.5 - 4.5 mg/dL 07/11/2023 9:45 AM CDT DTL Blood (Blood, Venous) 07/11/2023 8:51 AM CDT 07/11/2023 9:29 AM CDT Alida Colmenares M.D. LAB BLOOD ADD-ON [facility] [address] [address], [facility] Laboratories[address] [address] documented in this encounter Visit Diagnoses Diagnosis Polycystic Kidney Disease- Primary documented in this encounter Additional Health Concerns Assessment Noted Time PHQ-9 Depression Total Score: 7 05/03/20 10:25 AM CDT documented as of this encounter Care Teams Project Manager Entertainment And Media Relationship Specialty Start Date End Date Elsewhere, Pcp PCP - General Internal Medicine 12/18/21 documented as of this encounter
--- OUTSIDE RECORDS SUMMARY | 2023-10-30 08:09 | XMS_ITS | Encounter Summary ---
Author Name Unknown Organization [facility] Address [address] [place] [address] Care Team Providers Care Fruit Worker Name Role Phone Elsewhere, Pcp Primary Care Provider Unavailabl e Encounter Details Date Type Department Care Team (Late st Contact Info) Description 02/02/2016 Historical Ophthalmology [facility] Tyler Smith Jr., M.D. [address] [phone] Social History Tobacco Use Types Packs/Day Years Used Date Smoking Tobacco: Never Assessed Sex and Gender Information Value Date Recorded Sex Assigned at Female 07/06/2018 4:10 PM CDT Gender Identity Female 07/06/2018 4:10 PM CDT Sexual Orientation Straight 07/06/2018 4: 10 PM CDT documented as of this encounter Progress Notes * Tyler Smith M.D. - 02/02/2016 8:47 AM CDT Contact Lens Exam MULTI-VISIT DOCUMENT This document contains multiple patient visits and is available for review in Document Viewer. CDM Reports - EYECL Id: [id number] Status: Fnl documented in this encounter Plan of Treatment Not on file documented as of this encounter Visit Diagnoses Not on filedocumented in this encounter Additional Health Concerns Assessment Noted Time PHQ-9 Depression Total Score: 0 10/15/19 14 12:16 PM DRAINAGE DESIGN COORDINATOR documented as of this encounter Care Teams Fruit Worker Relationship Specialty Start Date End Date Elsewhere, Pcp PCP - General Internal Medicine 12/18/21 documented as of this encounter
--- OUTSIDE RECORDS SUMMARY | 2023-10-30 08:09 | XMS_ITS | Encounter Summary ---
Author Name Unknown Organization [facility] Address [address] [place] [address] Care Team Providers Care Six Color Press Operator Name Role Phone Elsewhere, Pcp Primary Care Provider Unavailabl e Encounter Details Date Type Department Care Team (Latest Contact Info) Description 07/11/2023 8:33 AM CDT Hospital Encounter Department of Laboratory Medicine and Pathology, [facility] in [place], [place] [address] [place] [address] Alida Colmenares M.D. [address] [place] [address] Polycystic Kidney Disease Discharge Disposition: Home or [...] How often do you attend chur or presybeterian services? More than 4 times per year 01/08/2023 Do you belong to any clubs o r organizations such as christian groups, unions, fraternal or athletic groups, or [...] Answer Date Recorded PHQ-2 Score 1 05/03/2022 [facility] of Occupat ional Health - Occupational [...] place to sleep or slept in a [facility] (including now)? No 01/08/2023 Depression Answer Date [...] Take 10 mg by mouth. 0 05/28/2022 hydroCHLOROthiazide (HYDRODIURIL) 25 mg tablet Take 25 mg by mouth daily. 0 03/05/2022 LANOLIN/MINERAL OIL/PETROLATUM (ARTIFICIAL TEARS OPHT) Administer 1 drop into both eyes as needed. 0 03/19/2013 multivit,stress formula-zinc (b vmdoefn-I-H-zinc) tablet Take 1 tablet by mouth daily. 0 traZODone (DESYREL) 12.5 mg tablet Take 50 [...] Procedure Name Priority Date/Time Associated Diagnosis Comments LIPID PANEL, S Routine 07/11/2023 8:51 AM CDT Polycystic Kidney Disease RENAL FUNCTION PANEL, S Routine 07/11/2023 8:51 AM CDT Polycystic Kidney Disease documented in this encounter Results * (ABNORMAL) Lipid Panel (07/11/2023 8:51 AM CDT) Triglycerides 76 mg/dL 07/11/2023 9:45 AM CDT DTL Comment: ----REFERENCE VALUE---- Normal: <150 mg/dL Borderline High: 150-199 mg/dL High: 200-499 mg/dL Very High: > or =500 mg/dL Cholesterol, Total 257(H) mg/dL 2022 9:45 AM CDT DTL Comment: ----REFERENCE VALUE---- Desirable: < 200 mg/dL Borderline High: 200 - 239 mg/dL High: > or = 240 mg/dL Cholesterol, LDL, Calculated 165(H) mg/dL 07/11/2023 9:45 AM CDT DTL Comment: ----REFERENCE VALUE---- Desirable: <100 mg/dL Above [...] CDT Alida Colmenares M.D. LAB BLOOD ADD-ON [facility] - [address] [address], [facility] [place] [address] * Renal Function Panel (07/11/2023 8:51 AM [...] CDT Alida Colmenares M.D. LAB BLOOD ADD-ON [facility] [address] [place] [address], [facility] DTL [facility] [address] [place] [address] documented in this encounter Visit Diagnoses Diagnosis Polycystic Kidney Disease documented in this encounter Additional Health Concerns Assessment Noted Time PHQ-9 Depression Total Score: 7 05/03/20 22 10:25 AM CDT documented as of this encounter Care Teams Six Color Press Operator Relationship Specialty Start Date End Date Elsewhere, Pcp PCP - General Internal Medicine 12/18/21 documented as of this encounter
--- NOTE | 2023-10-30 08:15 | CRLHL7_ITS ---
For Patients: As a result of the Century Cures Act, medical imaging exams and procedure reports are released immediately into your electronic medical record. You may view this report before your referring provider. If you have questions, please contact your health care provider. BILATERAL SCREENING MAMMOGRAM WITH COMPUTER-AIDED DETECTION AND TOMOSYNTHESIS TECHNIQUE: CC and MLO views were obtained. These mammographic images have been obtained using full-field digital technique. These mammographic images were interpreted with the benefit of computer-aided detection. Breast Tomosynthesis was used in this interpretation. COMPARISON FILM: 04/29/22, 03/21/21, 12/08/19. FINDINGS: There are scattered areas of fibroglandular density IMPRESSION: There is no radiographic evidence for malignancy. ASSESSMENT: BI-RADS Category 2: Benign RECOMMENDATION: Routine screening mammogram in 1 year. A lay language report of this examination will be provided to the patient. Gurjit Jett M.D. Diagnostic Radiologist [email or web address] DELFIN/Dictated by: Gurjit Jett MD @ 10/30/2023 12:01:00 PM (Electronically Signed)
== END 2023-10-30 07:55 | disposition home or self-care (01) ==
PROVIDERS: PCP Nurse Practitioner Family; Visit Provider Nurse Practitioner Family
DX: Z12.31 Encounter for screening mammogram for malignant neoplasm of breast (principal)
CPT/HCPCS: 77063; 77067

== ENCOUNTER 2024-08-16 11:40 | Outpatient (CLI) | payer MEDICAID, SELFPAY ==
--- OUTSIDE RECORDS SUMMARY | 2024-08-16 11:48 | XMS_ITS | Referral Summary ---
Author Organization [facility] Address [address] [place] [address] Care Team Providers Care Tin Plater Name Role Phone Elsewhere, Pcp Primary Care Provider Unavailabl e Source Comments Patient records contain information from all sites at [facility]. For routine questions regarding patient records, call [phone] during business hours, M-F 8:00 AM - 5:00 PM Central Time. Record requests for emergency care only can be directed to [phone] at any time.[facility] Encounters Date Type Department Care Team Description 08/13/2024 9:00 AM CDT Immunization Section of Infectious Diseases in [place], [place] [address] [place] [address] Freda Craft M.SSanjeev., R.N., C.M.S.R.N. 08/13/2024 7:25 AM CDT - 08/13/2024 11:59 PM CDT Hospital Encounter Department of Radiology in [place], [place] [address] [place] [address] Sonia Levine M.D. Screening Mammogram Breast Cancer Discharge Disposition: Home or Self Care 08/12/2024 3:45 PM CDT Lab RST RO LMP [address] [place] [address] Alida Colmenares M.D. Polycystic Kidney Autosomal Dominant; Chronic Kidney Disease Stage 2 Glomerular Filtration Rate 60 To 89; Proteinuria 08/12/2024 3:15 PM CDT Office Visit Division of Nephrology and Hypertension in [place], [place] [address] [place] [address] Alida Colmenares M.D. Polycystic Kidney Autosomal Dominant (Primary Dx); Chronic Kidney Disease Stage 2 Glomerular Filtration Rate 60 To 89; Proteinuria; Iron Deficiency Anemia Screening Exam; Paresthesias Hand; Paresthesias Feet 08/12/2024 7:10 AM CDT - 08/12/2024 11:59 PM CDT Hospital Encounter Department of Laboratory Medicine and Pathology, [place], [place] [address] [place] [address] Alida Colmenares M.D. Polycystic Kidney Autosomal Dominant; Proteinuria Discharge Disposition: Home or Self Care 08/12/2024 7:00 AM CDT - 08/12/2024 7:09 AM CDT Hospital Encounter Department of Laboratory Medicine and Pathology, [place], [place] [address] [place] [address] Alida Colmenares M.D. Polycystic Kidney Autosomal Dominant; Proteinuria Discharge Disposition: Home or Self Care 07/09/2024 Refill Division of Nephrology and Hypertension in [place], [place] [address] [place] [address] Alida Colmenares M.D. Med Refill from Last 3 Months Allergies Active Allergy Reactions Criticality Noted Date Comments Irbesartan Palpitations Medium 07/19/2016 Lisinopril Rash Medium 07/19/2016 Medications * This document contains information received from the source organization and may not represent a complete record from that organization. LANOLIN/COMMUNICATIONS PROJECT MANAGER AL OIL/PETROLATU M (ARTIFICIAL TEARS OPHT) Administer 1 drop into both eyes as needed. 013 Active valACYclovir (VALTREX) 1000 mg tablet Take 2,000 mg by mouth 2 (two) times a day. Not taking right now 022 Active traZODone (DESYREL) 12.5 mg tablet Take 50 mg by mouth as needed. 022 Active hydroCHLOROth iazide (HYDRODIURIL) 25 mg tablet take one tablet by mouth one time daily 90 tablet 2 Active cholecalcifer ol (Vitamin D3) 125 mcg (5,000 Unit) capsule Take 125 mcg by mouth daily. Active omega 7-jeh-zeu-fis h oil 300 mg-100 mg- 150 mg-1,000 mg capsule Take 1 capsule by mouth daily. Active MAGNESIUM GLYCINATE ORAL Take 1 capsule by mouth once a week. Active losartan (Cozaar) 50 mg tablet Take 1 tablet (50 mg total) by mouth 2 (two) times a day. 180 tablet 3 Active rosuvastatin (Crestor) 5 mg tablet Take 1 tablet (5 mg total) by mouth daily. 90 tablet 3 Active multivit,stre ss formula-zinc (b whwwkac-D-F-z inc) tablet Take 1 tablet by mouth daily. 2023 Discontinued citalopram (CeleXA) 2.5 mg tablet Take 10 mg by mouth. 2023 Discontinued(D iscontinued by another clinician) gabapentin (NEURONTIN) 300 mg capsule Take 1 capsule (300 mg total) by mouth 2 (two) times a day as needed (Sciatica pain). 60 capsule 3 023 2023 Discontinued rosuvastatin (CRESTOR) 5 mg tablet Take 1 tablet (5 mg total) by mouth daily. 30 tablet 11 023 2023 Discontinued estradioL (ESTRACE) 0.1 mg/g (0.01%) vaginal cream Apply 0.5 gram vulvovaginally twice weekly. 42.5 g 023 2023 Discontinued(T herapy Ineffective) estradioL (ESTRACE) 0.1 mg/g (0.01%) vaginal cream Insert 0.5 g into the vagina 2 (two) times a week. 2023 Discontinued(T herapy Ineffective) losartan (Cozaar) 50 mg tablet take one tablet by mouth one time daily 90 tablet 024 2023 Discontinued(R eorder) rosuvastatin (Crestor) 5 mg tablet Take 1 tablet (5 mg total) by mouth daily. 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 Hypertension 10/24/2005 Immunizations Name Administration Dates Next Due HepA Adult 10/21/2023,12/21/2012 HepB Adult 05/01/2022(Deferred: Other - up to date) Influenza Split 10/27/2015, 4,07/13/2012,2006 Influenza TIV (IM) 08/10/2018,08/29/2017, 012 Influenza, Injectable, Mdck, Preservative Free, Quadrivalent 07/26/2020 Influenza, Injectable, Quadrivalent 07/28/2015 Influenza, Seasonal, Injectable 08/10/2012 Influenza, Unspecified 07/09/2018(Deferr ed: Other),07/19/2016,10/27/2015,07/28/2015 ,07/25/2014,07/30/2013,08/10/2012,07/13,12/24/2011,08/01/2010,08/02/2008, 07/13/2007 RZV (SHINGRIX) 07/23/2022,(Deferred: Other - had 1st dose, due for 2nd dose soon),01/24/2022 SARS-COV-2 (COVID-19) - MODE RNA (12 YEARS AND OLDER) Fall Seasonal 08/13/2024 Td, (Adult) Unspecified 06/13/2005 Tdap 07/22/2023,12/23/2012,12/21/2012 TyVi (inj) 10/21/2023 influenza trivalent high dos e (HD)(PF) 10/27/2015 influenza trivalent vaccine (6 months and older)(PF) 08/13/2024,12/24/2011,08/01/2010,2007,07/13/2007 influenza vaccine QV(FLUBLOK ) (18 years or older) (PF) 07/23/2022,07/25/2021,07/09/2018(Deferr ed: Other) influenza vaccine quad (FLUZONE/FLUARIX) (6 months and older)(PF) 06/12/2023,08/03/2019,08/10/2018,2016 Social History Tobacco Use Types Packs/Day Years Used Date Smoking Tobacco: Former Cigarettes Q uit: 10/13/1983 Smokeless Tobacco: Never Alcohol Use Standard Drinks/Week Comments Yes 1 (1 standard drink = 0.6 oz pur e alcohol) occasionally [facility] Utilities Answer Date Recorded In the past 12 months has e electric, gas, oil, or water company threatened to shut off services in your home? No 08/08/2024 Humiliation, Afraid, Rape, and Kick questionnair e [...] week 01/08/2023 How often do you attend [facility] or christian services? More than 4 times per year 01/08/2023 Do you belong to any clubs o r organizations such as yazidi groups, unions, fraternal or athletic groups, or [...] Score 1 05/03/2022 [facility] - Occupational Stress Questionnaire Answer Date Recorded [...] exercise (like a brisk walk)? 7 days 08/08/2024 On average, how many minutes do you engage in exercise at this level? 60 min 08/08/2024 Hunger Vital Sign Answer Date Recorded Within the past 12 months, y ou worried that your food would run out before you got the money to buy more. Never true 08/08/20 Within the past 12 months, t he food you bought just didn't last and you didn't have money to get more. Never true 08/08/2024 PRAPARE - Transportation Answer Date Re corded In the past 12 months, has l ack of transportation kept you from medical appointments or from getting medications? No 07/14 In the past 12 months, has l ack of transportation kept you from meetings, work, or from getting things needed for daily living? No 08/08/2024 Depression Answer Date Recor ded PHQ-9 Total Score (max 27) 7 05/03 Nutrition Answer Date Recorded On average, how many serving s of fruits and vegetables do you eat per day (serving size is equal to 1 cup or approximately the size of a tennis ball)? 3-5 08/08/2024 Dental Answer Date Recorded Dental: Regular Dentist Yes 06/06/20 Employment Answer Date Recorded Employment status Employed and actively working without restrictions 08/08/2024 Housing Stability Answer Date Recorded What is your living situation today? I have a [facility] place to live 08/08/2024 Education Answer Date Recorded What is the highest level of school you have completed or the highest degree you have received? Associate degree: occupational, technical, or vocational program 10/18/2019 Comments No Sex and Gender Information Value Date Recorded Sex Assigned at Female 07/06/2018 4:10 PM CDT Legal Sex Female 2:19 PM MOTOR SCOOTER REPAIRER Gender Identity Female 07/06/2018 4:10 PM CDT Sexual Orientation Straight 07/06/2018 4: 10 PM CDT Last Filed Vital Signs Vital Sign Reading Time Taken Comments Blood Pressure 156/89 08/12/2024 2:59 PM CDT Pulse 65 08/12/2024 2:59 PM CDT Temperature 35.2 ??C (95.4 ??F) 07/11/2023 1:24 PM CD T Respiratory Rate 12 07/29/2018 10:16 AM CDT Oxygen Saturation 98% 07/29/2018 10:16 AM CDT Inhaled Oxygen Concentration - - Weight 75.3 kg (166 lb 0.1 oz) 08/12/2024 2:34 P M CDT Height 158.4 cm (5' 2.36) 08/12/2024 2:34 PM CD T Body Mass Index 30.01 08/12/2024 2:34 PM CDT Plan of Treatment Upcoming Encounters Date Type Department Care Team (Latest Contact Info) Description 09/03/2024 11:00 AM MOTOR SCOOTER REPAIRER Comprehensive Visit Division of Nephrology and Hypertension in [place], [place] [address] [place] [phone] Alida Colmenares M.D. [address] [place] [address] Rowan Walden, MAGDALENAN, LD [address] [place] [phone] 09/13/2024 8:30 AM MOTOR SCOOTER REPAIRER Nurse Only Division of Nephrology and Hypertension in [place], [place] [address] [place] [address] Alida Colmenares M.D. [address] [place] [address] Ashanti Brice R.N. [address] [place] [phone] 10/26/2024 2:00 PM MOTOR SCOOTER REPAIRER Appointment Department of Cardiovascular Diseases in [place], [place] [address] [place] [phone] Alida Colmenares M.D. [address] [place] [phone] Discharge Disposition: Home or Self Care Procedures Procedure Name Priority Date/Time Associated Diagnosis Comments BI BREAST SCREENING BILATERAL WITH TOMOSYNTHESIS RAD - Routine (most inpatients and all outpatients) 08/13/2024 8:02 AM CDT Screening Mammogram Breast Cancer PROTEIN/CREATININE RATIO, RANDOM, URINE Routine 08/12/2024 7:47 AM CDT Polycystic Kidney Autosomal Dominant Proteinuria ALBUMIN, RANDOM, U Routine 08/12/2024 7: 47 AM CDT Polycystic Kidney Autosomal Dominant Proteinuria RENAL FUNCTION PANEL, S Routine 08/12/2024 7:41 AM CDT Polycystic Kidney Autosomal Dominant Proteinuria IRON AND TOT IRON-BINDING CAPACITY, S/P Routine 08/12/2024 7:38 AM CDT FOLATE, S Routine 08/12/2024 7:38 AM CDT FERRITIN, S Routine 08/12/2024 7:38 AM CDT THYROID FUNCTION CASCADE, S Routine 08/12/2024 7:38 AM CDT 25-HYDROXYVITAMIN D2 AND D3, S Routine 08/12/2024 7:38 AM CDT MAGNESIUM, S Routine 08/12/2024 7:38 AM CDT VITAMIN B12 ASSAY, S Routine 08/12/2024 7:38 AM CDT LIPID PANEL, S Routine 08/12/2024 7:38 AM CDT Polycystic Kidney Autosomal Dominant Chronic Kidney Disease Stage 2 Glomerular Filtration Rate 60 To 89 Proteinuria COLONOSCOPY Routine 07/29/2018 9:29 AM CDT Screening Cancer Colon PATHOLOGY DAIRY BAR MANAGER CYTOLOGY Routine 03/14/2016 4:59 PM CDT from Last 3 Months or Most Recently Relevant to Health Maintenance Results * BI Breast Screening Bilateral with Tomosynthesis (08/13/2024 8:02 AM CDT) Anatomical Region Laterality Modality Breast, Breast Imaging RST L OS, Breast Imaging ARZ LOS, Breast Imaging FLA LOS Bilateral Mammography Impressions 08/13/2024 10:26 AM CDT Negative. RECOMMENDATION: ??Annual Screening Mammogram ASSESSMENT: ??BI-RADS: 1: Negative. Narrative 08/13/2024 10:26 AM CDT EXAM: ??BI BREAST SCREENING BILATERAL WITH TOMOSYNTHESIS Current study was evaluated with a Computer Aided Detection (CAD) system. INDICATION: ??Screening mammogram. COMPARISON: ??Prior exam(s) were available and reviewed for comparison. DENSITY: ??c. The breast(s) are heterogeneously dense, which may obscure small masses. FINDINGS: ??No mammographic findings of malignancy. Procedure Note Golden Lo M.D. - 08/13/2024 EXAM: BI BREAST SCREENING BILATERAL WITH TOMOSYNTHESIS Current study was evaluated with a Computer Aided Detection (CAD) system. INDICATION: Screening mammogram. COMPARISON: Prior exam(s) were available and reviewed for comparison. DENSITY: c. The breast(s) are heterogeneously dense, which may obscuresmall masses. FINDINGS: No mammographic findings of malignancy. IMPRESSION: Negative. RECOMMENDATION: Annual Screening Mammogram ASSESSMENT: BI-RADS: 1: Negative. Sonia Levine M.D. [facility] BI PROCEDURES Final Result * (ABNORMAL) Albumin, Random, Urine (08/12/2024 7:47 AM CDT) Albumin, Random, U 18.4 mg/L 2023 1:45 PM CDT DTL Comment: ----ADDITIONAL INFORMATION---- This test has been modified from the coil winder repair's instructions. Its performance characteristics were determined by [facility] in a manner consistent with CLIA requirements. This test has not been cleared or approved by the U.S. Food and Drug Administration. Creatinine 72 mg/dL 08/12/2024 8:57 AM CDT DTL Albumin/Creatinine Ratio 26(H) <25 mg/g 08/12/2024 1:45 PM CDT DTL Urine (Urine, Midstream) 08/12/2024 7:47 AM CDT 08/12/2024 8:08 AM CDT Alida Colmenares M.D. LAB URINE ORDERABLES Final Re sult Performing Organization Address [facility] Co de Phone Number [facility] [address] [place] [address] * Protein/Creatinine Ratio, Random, Urine (08/12/2024 7:47 AM CDT) Protein, Total, Random, U 8 mg/dL 08/12/2024 8:57 AM CDT DTL Creatinine, Random, U 72 16 - 326 mg/dL 08/12/2024 8:57 AM CDT DTL Protein/Creatin ine Ratio 0.11 <0.18 mg/mg 08/12/2024 8:57 AM CDT DTL Urine (Urine, Midstream) 08/12/2024 7:47 AM CDT 08/12/2024 8:08 AM CDT Alida Colmenares M.D. LAB URINE ORDERABLES Final Re sult Performing Organization Address City/[facility] Co de Phone Number [facility] [address] [place] [address] * Renal Function Panel (08/12/2024 7:41 AM CDT) Pathologist [facility] Potassium, S 3.6 3.6 - 5.2 mmol/L 08/12/2024 8:50 AM CDT DTL Sodium, S 138 135 - 145 mmol/L 08/12/2024 8:50 AM CDT DTL Chloride, S 99 98 - 107 mmol/L 08/12/2024 8:50 AM CDT DTL Bicarbonate, S 28 22 - 29 mmol/L 08/12/2024 8:50 AM CDT DTL Anion Gap 11 7 - 15 08/12/2024 8:50 AM CDT DTL BUN (Blood Urea Nitrogen), S 17 6 - 21 mg/dL 08/12/2024 8:50 AM CDT DTL Creatinine 0.91 0.59 - 1.04 mg/dL 08/12/2024 8:50 AM CDT DTL Estimated GFR (eGFR) 74 >=60 mL/min/BSA 08/12/2024 8:50 AM CDT DTL Comment: Estimated GFR calculated using the 2020 CKD_EPI creatinine equation. Calcium, Total, S 9.9 8.6 - 10.0 mg/dL 08/12/2024 8:50 AM CDT DTL Glucose, S 101 70 - 140 mg/dL 08/12/2024 8:50 AM CDT DTL Albumin, S 4.7 3.5 - 5.0 g/dL 08/12/2024 8:50 AM CDT DTL Phosphorus (Inorganic), S 3.4 2.5 - 4.5 mg/dL 08/12/2024 8:50 AM CDT DTL Blood (Blood, Venous) 08/12/2024 7:41 AM CDT 08/12/2024 8:22 AM CDT us Alida Colmenares M.D. LAB BLOOD ADD-ON Final Result [facility] [address] [place] [address], [facility] DTL [facility] [address] [place] [address] * (ABNORMAL) Lipid Panel (08/12/2024 7:38 AM CDT) Triglycerides 75 mg/dL 08/13/2024 8:37 AM CDT DTL Comment: ----REFERENCE VALUE---- Normal: <150 mg/dL Borderline High: 150-199 mg/dL High: 200-499 mg/dL Very High: > or =500 mg/dL Cholesterol, Total 258(H) mg/dL 2023 8:37 AM CDT DTL Comment: ----REFERENCE VALUE---- Desirable: < 200 mg/dL Borderline High: 200 - 239 mg/dL High: > or = 240 mg/dL Cholesterol, LDL, Calculated 169(H) mg/dL 08/13/2024 8:37 AM CDT DTL Comment: ----REFERENCE VALUE---- Desirable: <100 mg/dL Above Desirable: 100-129 mg/dL Borderline High: 130-159 mg/dL High: 160-189 mg/dL Very High: >=190 mg/dL ----ADDITIONAL INFORMATION---- LDL cholesterol calculated using the Price/NIH equation. Cholesterol, HDL, S 77 >=50 mg/dL 08/13/2024 8:37 AM CDT DTL Cholesterol, Non-HDL, Calculated 181(H) mg/dL 08/13/2024 8:37 AM CDT DTL Comment: ----REFERENCE VALUE---- Desirable: <130 mg/dL Above Desirable: 130-159 mg/dL Borderline High: 160-189 mg/dL High: 190-219 mg/dL Very High: > or =220 mg/dL Fasting (8 HR or more) Unknown 08/13/2024 6:50 AM CDT DTL Blood (Blood, Venous) 08/12/2024 7:38 AM CDT 08/13/2024 6:50 AM CDT us Alida Colmenares M.D. LAB BLOOD ADD-ON Final Result [facility] [address] [place] [address], [place] [facility] [address] [place] [address] * Thyroid Function [place] (08/12/2024 7:38 AM CDT) [facility] TSH, Sensitive 2.4 0.3 - 4.2 mIU/L 08/13/2024 8:37 AM CDT DTL Blood 08/12/2024 7:38 AM CDT 08/13/2024 6:50 AM CDT us Soft Results Interface LAB BLOOD ADD-ON Final Re sult Performing Organization Address City/[facility]/ZIP Co de Phone Number [facility] [address] [place] [address], [facility] [address] [place] [address] * Iron and Total Iron-Binding Capacity (08/12/2024 7:38 AM CDT) [facility] Iron 76 35 - 145 mcg/dL 08/13/2024 8:37 AM CDT DTL Total Iron Binding Capacity 303 250 - 400 mcg/dL 08/13/2024 8:37 AM CDT DTL Percent Saturation 25 14 - 50 % 08/13/2024 8:37 AM CDT DTL Blood 08/12/2024 7:38 AM CDT 08/13/2024 6:50 AM CDT us Soft Results Interface LAB BLOOD ADD-ON Final Re sult [facility] [address] [place] [address], [facility] [address] [place] [address] * 25-Hydroxyvitamin D2 and D3 (08/12/2024 7:38 AM CDT) [facility] 25-Hydroxy D2 <4.0 ng/mL 08/15/2024 11:25 AM MOTOR SCOOTER REPAIRER [facility] 25-Hydroxy D3 64 ng/mL 08/15/2024 11:25 AM MOTOR SCOOTER REPAIRER [facility] 25-Hydroxy D Total 64 ng/mL 2023 11:25 AM [facility] Comment: Interpretation: 51-80 ng/mL (increased risk of hypercalciuria) ----REFERENCE VALUE---- 25-HYDROXY D TOTAL (D2+D3) Optimum levels in the healthy population are 20-50. ----ADDITIONAL INFORMATION---- This test was developed and its performance characteristics determined by [facility] in a manner consistent with CLIA requirements. This test has not been cleared or approved by the U.S. Food and Drug Administration. Blood 08/12/2024 7:38 AM CDT 08/13/2024 9:05 AM CDT us Soft Results Interface LAB BLOOD ADD-ON Final Re sult Performing Organization Address City/[facility]/ZIP Co de Phone Number [facility] [address] [place] [address] [facility] [address] [place] [address] [place] [address] * Magnesium (08/12/2024 7:38 AM CDT) Magnesium, S 2.0 1.7 - 2.3 mg/dL 08/13/2024 8:37 AM CDT DTL Blood 08/12/2024 7:38 AM CDT 08/13/2024 6:50 AM CDT us Soft Results Interface LAB BLOOD ADD-ON Final Re sult Performing Organization Address City/[facility]/ZIP Co de Phone Number [facility] [address] [place] [address], [facility] DTL [facility] [address] [place] [address] * Folate (08/12/2024 7:38 AM CDT) Folate, S 12.6 >=4.0 mcg/L 08/13/2024 11:28 AM CDT DTL Blood 08/12/2024 7:38 AM CDT 08/13/2024 6:50 AM CDT us Soft Results Interface LAB BLOOD ADD-ON Final Re sult Performing Organization Address City/[facility]/ZIP Co de Phone Number [facility] [address] [facility] 200 [place] [address] * Ferritin (08/12/2024 7:38 AM CDT) Ferritin, S 127 11 - 328 mcg/L 08/13/2024 8:37 AM CDT DTL Blood 08/12/2024 7:38 AM CDT 08/13/2024 6:50 AM CDT us Soft Results Interface LAB BLOOD ADD-ON Final Re sult Performing Organization Address [facility] Co de Phone Number [facility] [address] [place] [address] * Vitamin B12 Assay (08/12/2024 7:38 AM CDT) Vitamin B12 Assay, S 277 180 - 914 ng/L 08/13/2024 11:37 AM CDT DT Comment: ----ADDITIONAL INFORMATION---- In patients being evaluated for vitamin B12 deficiency who have intrinsic factor blocking antibodies (IFBA), false elevations of B12 may occur due to IFBA interference thus potentially obscuring a physiological deficiency of B12. If observed B12 concentrations are discordant with clinical presentation, measurement of methylmalonic acid (MMA) should be considered. Blood 08/12/2024 7:38 AM CDT 08/13/2024 6:50 AM CDT us Soft Results Interface LAB BLOOD ADD-ON Final Re sult Performing Organization Address City/[facility] Co de Phone Number [facility] [address] [facility] [address] [place] [address] * Pathology DAIRY BAR MANAGER Cytology (03/14/2016 4:59 PM CDT) 03/14/2016 4:59 PM CDT 03/14/2016 4:59 PM CDT Narrative [facility] - 03/14/2016 4:59 PM CDT ??03/14/2016 Cytology Gynecological ?([id number]) ? Requested By:Rosalinda Lilly, STRUCTURAL IRONWORKER ??[phone] ?DIAGNOSIS: A. ??ThinPrep Pap Test Screen (Cervical/Endocervical HPV >= 30 years old): ?Satisfactory for evaluation. ?Negative for intraepithelial lesion or malignancy. ? High Risk HPV testing results are NEGATIVE. ? See specific genotype results below. ?? HPV with Genotyping, PCR, ThinPrep: ?? HPV High Risk Type 16, PCR: ??NEGATIVE ?? HPV High Risk Type 18, PCR: ??NEGATIVE ?? HPV other High Risk types, PCR: ??NEGATIVE ?Other High Risk HPV types include: ??31, 33, 35, 39, 45, 51, 52, 56, 58, 59, 66, and 68. ? Report electronically signed by Emerson Xie [facility](ASCP) ?? 03/19/2016 14:10 Interpreted by: [employer] Ro(ASCP) ?? SPECIMEN DESCRIPTION: A. ??ThinPrep Pap Test Screen (Cervical/Endocervical HPV >= 30 years old): ??Received cloudy specimen in ThinPrep vial. ?? Procedure Note 01/08/2018 03/14/2016 Cytology Gynecological ([id number]) Requested By:Rosalinda Lilly, STRUCTURAL IRONWORKER [phone] DIAGNOSIS: A. ThinPrep Pap Test Screen (Cervical/Endocervical HPV >= 30 years old): Satisfactory for evaluation. Negative for intraepithelial lesion or malignancy. High Risk HPV testing results are NEGATIVE. See specific genotype results below. HPV with Genotyping, PCR, ThinPrep: HPV High Risk Type 16, PCR: NEGATIVE HPV High Risk Type 18, PCR: NEGATIVE HPV other High Risk types, PCR: NEGATIVE Other High Risk HPV types include: 31, 33, 35, 39, 45, 51, 52, 56, 58, 59, 66, and 68. Report electronically signed by LUIS E Knight(ASCP) 03/19/2016 14:10 Interpreted by: Jenny Paredes, [employer](ASCP) SPECIMEN DESCRIPTION: A. ThinPrep Pap Test Screen (Cervical/Endocervical HPV >= 30 years old): Received cloudy specimen in ThinPrep vial. Rosalinda Lilly APRN C.N.PCaren LAB PAP COPATH ORDERA BLES Final Result [facility] [address] [place], [place] [address] from Last 3 Months or Most Recently Relevant to Health Maintenance Insurance [employer] Advance Directives For more information, please contact: [phone] Documents on File Type Date Recorded Patient District Engineer Expl anation Advance Directives 04/04/2015 12:00 AM Leg acy document. See document viewer. Care Teams Tin Plater Relationship Specialty Start Date End Date Elsewhere, Pcp PCP - General Internal Medicine 12/18/21
--- OUTSIDE RECORDS SUMMARY | 2024-08-16 11:48 | XMS_ITS | Encounter Summary ---
Author Organization [facility] Address [address] [place] [address] Care Team Providers Care Review Consultant Name Role Phone Elsewhere, Pcp Primary Care Provider Unavailabl e Reason for Visit * Reason Comments Immunizations * Appointment Request (Routine) - Closed Specialty Diagnoses / Procedures Referred By Irma t Referred To Contact Family Medicine Referral ID Status Reason Start Date Expiration Date Visits Re quested Visits Authorized [id number] Closed 08/13/2024 08/13/2025 1 1 Encounter Details Date Type Department Care Team (Late Contact Info) Description 08/13/2024 9:00 AM CDT Immunization Section of Infectious Diseases in [place], [place] [address] [place] [phone] Freda Craft M.S.Doretha., R.N., C.M.S.R.N. [address] [place] [phone] Social History Tobacco Use Types Packs/Day Years Used Date Smoking Tobacco: Former Cigarettes Q uit: 10/13/1983 Smokeless Tobacco: Never Alcohol Use Standard Drinks/Week Comments Yes 1 (1 standard drink = 0.6 oz pur e alcohol) occasionally [facility] Utilities Answer Date Recorded In the past [...] How often do you attend chur or sikh services? More than 4 times per year 01/08/2023 Do you belong to any clubs o r organizations such as islam groups, unions, fraternal or athletic groups, or [...] Answer Date Recorded PHQ-2 Score 1 05/03/2022 [facility] - Occupational Stress Questionnaire Answer Date [...] your living situation today? I have a [facility] place to live 08/08/2024 Education Answer Date Recorded What is the highest level of school you have completed or the highest degree you have received? Associate degree: occupational, technical, or vocational program 10/18/2019 Comments No Sex and Gender Information Value Date Recorded Sex Assigned at Female 07/06/2018 4:10 PM CDT Legal Sex Female 2:19 PM ENGINE SPECIALIST Gender Identity Female 07/06/2018 4:10 PM CDT Sexual Orientation Straight 07/06/2018 4: 10 PM CDT documented as of this encounter Plan of Treatment Upcoming Encounters Date Type Department Care Team (Latest Contact Info) Description 09/03/2024 11:00 AM ENGINE SPECIALIST Comprehensive Visit Division of Nephrology and Hypertension in [place], [place] [address] [place] [phone] Alida Colmenares M.D. [address] [place] [phone] Rowan Walden, RDN, LD [address] [place] [phone] 09/13/2024 8:30 AM ENGINE SPECIALIST Nurse Only Division of Nephrology and Hypertension in [place], [place] [address] [place] [phone] Alida Colmenares M.D. [address] [place] [phone] Ashanti Brice R.N. [address] [place] [phone] 10/26/2024 2:00 PM ENGINE SPECIALIST Appointment Department of Cardiovascular Diseases in [place], [place] [address] [place] [phone] Alida Colmenares M.D. [address] [place] [phone] Discharge Disposition: Home or Self Care documented as of this encounter Visit Diagnoses Not on filedocumented in this encounter Additional Health Concerns Assessment Noted Time PHQ-9 Depression Total Score: 7 05/03/20 22 10:25 AM CDT documented as of this encounter Care Teams Review Consultant Relationship Specialty Start Date End Date Elsewhere, Pcp PCP - General Internal Medicine 12/18/21 documented as of this encounter
--- OUTSIDE RECORDS SUMMARY | 2024-08-16 11:48 | XMS_ITS | Clinical Summary ---
Author Organization [facility] Address [address] [place] [address] Care Team Providers Care Maintenance Apprentice Name Role Phone Elsewhere, Pcp Primary Care Provider Unavailabl e Source Comments Patient records contain information from all sites at [facility]. For routine questions regarding patient records, call [phone] during business hours, M-F 8:00 AM - 5:00 PM Central Time. Record requests for emergency care only can be directed to [phone] at any time.[facility] Allergies Active Allergy Reactions Criticality Noted Date Comments Irbesartan Palpitations Medium 07/19/2016 Lisinopril Rash Medium 07/19/2016 Medications * This document contains information received from the source organization and may not represent a complete record from that organization. LANOLIN/CASING CREW PUSHER AL OIL/PETROLATU M (ARTIFICIAL TEARS OPHT) Administer [...] mouth one time daily 90 tablet 2 024 Active cholecalcifer ol (Vitamin D3) 125 mcg (5,000 Unit) capsule Take 125 mcg by mouth daily. Active omega 9-hrl-npy-fis h oil 300 mg-100 mg- 150 mg-1,000 [...] tablet 3 Active multivit,stre ss formula-zinc (b owdyoye-P-N-z inc) tablet Take 1 tablet by mouth daily. 2023 Discontinued citalopram (CeleXA) 2.5 mg tablet Take 10 mg by mouth. 022 2023 Discontinued(D iscontinued by another clinician) gabapentin [...] 0.5 gram vulvovaginally twice weekly. 42.5 g 2023 Discontinued(T herapy Ineffective) estradioL (ESTRACE) 0.1 mg/g (0.01%) vaginal cream Insert 0.5 g into the vagina 2 (two) times a week. 2023 Discontinued(T herapy Ineffective) losartan (Cozaar) 50 mg tablet take one tablet by mouth one time daily 90 tablet 2023 Discontinued(R eorder) rosuvastatin (Crestor) 5 mg tablet Take 1 tablet (5 mg total) by mouth daily. 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 08/13/2024 7:25 AM CDT - 08/13/2024 11:59 PM CDT Hospital Encounter Department of Radiology in [place], [place] [address] [place] [phone] Sonia Levine M.D. Screening Mammogram Breast Cancer Discharge Disposition: Home or Self Care 08/12/2024 3:45 PM CDT Lab RST RO LMP [address] [place] [phone] Alida Colmenares M.D. Polycystic Kidney Autosomal Dominant; Chronic Kidney Disease Stage 2 Glomerular Filtration Rate 60 To 89; Proteinuria 08/12/2024 3:15 PM CDT Office Visit Division of Nephrology and Hypertension in [place], [place] [address] [place] [phone] Alida Colmenares M.D. Polycystic Kidney Autosomal Dominant (Primary Dx); Chronic Kidney Disease Stage 2 Glomerular Filtration Rate 60 To 89; Proteinuria; Iron Deficiency Anemia Screening Exam; Paresthesias Hand; Paresthesias Feet 08/12/2024 7:10 AM CDT - 08/12/2024 11:59 PM CDT Hospital Encounter Department of Laboratory Medicine and Pathology, [place], [place] [address] [place] [phone] Alida Colmenares M.D. Polycystic Kidney Autosomal Dominant; Proteinuria Discharge Disposition: Home or Self Care 08/12/2024 7:00 AM CDT - 08/12/2024 7:09 AM CDT Hospital Encounter Department of Laboratory Medicine and Pathology, [place], [place] [address] [place] [phone] Alida Colmenares M.D. Polycystic Kidney Autosomal Dominant; Proteinuria Discharge Disposition: Home or Self Care 07/09/2024 Refill Division of Nephrology and Hypertension in [place], [place] [address] [place] [phone] Alida Colmenares M.D. Med Refill from Last 3 Months Immunizations Name Administration [...] quad (FLUZONE/FLUARIX) (6 months and older)(PF) 06/12/2023,08/03/2019,08/10/2018,2016 Family History Medical History Relation Name Comments Arthritis Father Chris Colon polyps Father Chris Hyperlipidemia Father Chris Hypertension Father Chris Stroke Father Chris Kidney disease Grandfather Stroke Grandmother Diabetes Mother Nasrin Kidney disease Mother Nasrin Relation Name Status Comments Father Chris Alive Grandfather Grandmother Mother Nasrin Alive Social History Tobacco Use Types Packs/Day Years Used Date Smoking Tobacco: Former Cigarettes Q uit: 10/13/1983 Smokeless Tobacco: Never Alcohol Use Standard Drinks/Week Comments Yes 1 (1 standard drink = 0.6 oz pur e alcohol) occasionally [facility] Utilities Answer Date Recorded In the past 12 months has e [employer], gas, oil, or water [employer] threatened to shut off services in your [...] often do you attend chur ch or catholic services? More than 4 times per year 01/08/2023 Do you belong to any clubs o r organizations such as baptist groups, unions, fraternal or athletic groups, or [...] Answer Date Recorded PHQ-2 Score 1 05/03/2022 [facility] Occup[facility] ional Health - Occupational Stress [...] money to buy more. Never true 08/08/20 24 Within the past 12 months, t he [...] your living situation today? I have a [facility] place to live 08/08/2024 Education Answer Date Recorded What is the highest level of school you have completed or the highest degree you have received? Associate degree: occupational, technical, or vocational program 10/18/2019 Comments No Sex and Gender Information Value Date Recorded Sex Assigned at Female 07/06/2018 4:10 PM CDT Legal Sex Female 2:19 PM DIGESTER COOK Gender Identity Female 07/06/2018 4:10 PM CDT [...] (Latest Contact Info) Description 09/03/2024 11:00 AM DIGESTER COOK Comprehensive Visit Division of Nephrology and Hypertension in [place], [place] [address] [place] [phone] Alida Colmenares M.D. [address] [place] [phone] Rowan Walden, RDN, LD [address] [place] [phone] 09/13/2024 8:30 AM DIGESTER COOK Nurse Only Division of Nephrology and Hypertension in [place], [place] [address] [place] [phone] Alida Colmenares M.D. [address] [place] [phone] Ashanti Brice R.N. [address] [place] [phone] 10/26/2024 2:00 PM DIGESTER COOK Appointment Department of Cardiovascular Diseases in [place], [place] [address] [place] [phone] Alida Colmenares M.D. [address] [place] [phone] Discharge Disposition: Home or Self Care Health Maintenance Due Date Last Done Comments CT Colonography 1967 Cologuard 1967 FIT 1967 Hepatitis C Screening 1967 Hepatitis B Vaccines (1 of 3 - 19+ 3-dose series) 1986 Depression Screening (Annual PHQ-2) 10/13/2023 Office Visit for Blood Pressure Check / Re-check 11/12/2024 08/12/2024 Creatinine Level (Kidney Function Test) 08/12/2025 08/12/2024, 08/11/2023, 07/11/2023, Additional history exists Potassium Level 08/12/2025 08/12/2024, 07/15, 07/11/2023, Additional history exists Sodium Level 08/12/2025 08/12/2024, 07/15, 07/11/2023, Additional history exists Mammogram 08/13/2025 08/13/2024, 04/12, 03/21/2021, Additional history exists Cervical/Vaginal Cancer Screening 11/27/2026 11/27/2021, 03/14/2016, 03/14/2016, Additional history exists Fasting Glucose for Diabetes Screening 08/12/2027 08/12/2024, 08/11/2023, 07/11/2023, Additional history exists Colonoscopy 07/29/2028 07/29/2018, 07/13, 11/12/2005 Colorectal Cancer Screening 07/29/2028 Lipid (Cholesterol) Screening 08/12/2029 08/12/2024, 07/11/2023, 04/29/2022, Additional history exists DTaP,Tdap,and Td Vaccines (4 - Td or Tdap) 07/22/2033 07/22/2023, 12/23/2012, 12/21/2012, Additional history exists HIV Screening Completed 11/27/2007 Zoster Vaccines Completed 07/23/2022, 01/24/2022 Hepatitis A Vaccines Completed 10/21/2023, 12/22/19 13 COVID-19 Vaccine Completed 08/13/2024, , 03/05/2022, Additional history exists Influenza Vaccine Completed 08/13/2024, , 07/23/2022, Additional history exists IPV Vaccines Aged Out No longer eligi ble based on patient's age to complete this topic Pneumococcal vaccine (0-64 years) Aged Out No [...] 9:29 AM CDT Screening Cancer Colon PATHOLOGY PRIMARY CARE PEDIATRICIAN CYTOLOGY Routine 03/14/2016 4:59 PM CDT from [...] ASSESSMENT: BI-RADS: 1: Negative. Sonia Levine M.D. IMG BI PROCEDURES Final Result * (ABNORMAL) Albumin, Random, Urine (08/12/2024 7:47 AM CDT) Albumin, Random, U 18.4 mg/L 2023 1:45 PM CDT DTL Comment: ----ADDITIONAL INFORMATION---- This test has been modified from the tie sawyer's instructions. Its performance characteristics were determined by [facility] in a manner consistent with CLIA requirements. This test has not been cleared or approved by the U.S. Food and Drug Administration. Creatinine 72 mg/dL 08/12/2024 8:57 AM CDT DTL Albumin/Creatinine Ratio 26(H) <25 mg/g 08/12/2024 1:45 PM CDT DTL Urine (Urine, Midstream) 08/12/2024 7:47 AM CDT 08/12/2024 8:08 AM CDT Alida Colmenares M.D. LAB URINE ORDERABLES Final Re sult [facility] [address] [place] [address], [facility] [address] [place] [address] * Protein/Creatinine Ratio, Random, Urine (08/12/2024 7:47 AM CDT) Protein, Total, Random, U 8 mg/dL 08/12/2024 8:57 AM CDT DTL Creatinine, Random, U 72 16 - 326 mg/dL 08/12/2024 8:57 AM CDT DTL Protein/Creatin ine Ratio 0.11 <0.18 mg/mg 08/12/2024 8:57 AM CDT DTL Urine (Urine, Midstream) 08/12/2024 7:47 AM CDT 08/12/2024 8:08 AM CDT us Alida Colmenares M.D. LAB URINE ORDERABLES Final Re sult [facility] [address] [place] [address], [facility] DTL [facility] [address] [place] [address] * Renal Function Panel (08/12/2024 7:41 AM CDT) Potassium, S 3.6 3.6 - 5.2 mmol/L [...] 7:41 AM CDT 08/12/2024 8:22 AM CDT Alida Colmenares M.D. LAB BLOOD ADD-ON Final Result [facility] [address] [place] [address], [facility] [address] [place] [address] * (ABNORMAL) Lipid Panel (08/12/2024 7:38 AM [...] Colmenares M.D. LAB BLOOD ADD-ON Final Result Performing Organization Address City/[facility]/ZIP Co de Phone Number [facility] [address] [facility] [address] [place] [address] * Thyroid Function [place] (08/12/2024 7:38 AM CDT) TSH, Sensitive 2.4 0.3 - 4.2 mIU/L 08/13/2024 8:37 AM CDT DTL Blood 08/12/2024 7:38 AM CDT 08/13/2024 6:50 AM CDT us Soft Results Interface LAB BLOOD ADD-ON Final Re sult Performing Organization Address [facility] Co de Phone Number [facility] [address] [place] [address] * Iron and Total Iron-Binding Capacity (08/12/2024 7:38 AM CDT) Iron 76 35 - 145 mcg/dL 08/13/2024 8:37 AM CDT DTL Total Iron Binding Capacity 303 250 - 400 mcg/dL 08/13/2024 8:37 AM CDT DTL Percent Saturation 25 14 - 50 % 08/13/2024 8:37 AM CDT DTL Blood 08/12/2024 7:38 AM CDT 08/13/2024 6:50 AM CDT us Soft Results Interface LAB BLOOD ADD-ON Final Re sult Performing Organization Address City/[facility]/ZIP Co de Phone Number [facility] [address] [facility] [address] [place] [address] * 25-Hydroxyvitamin D2 and D3 (08/12/2024 7:38 AM CDT) 25-Hydroxy D2 <4.0 ng/mL 08/15/2024 11:25 AM DIGESTER COOK [facility] 25-Hydroxy D3 64 ng/mL 08/15/2024 11:25 AM DIGESTER COOK [facility] 25-Hydroxy D Total 64 ng/mL 2023 11:25 AM [facility] Comment: Interpretation: 51-80 ng/mL (increased risk of hypercalciuria) ----REFERENCE VALUE---- 25-HYDROXY D TOTAL (D2+D3) Optimum levels in the healthy population are 20-50. ----ADDITIONAL INFORMATION---- This test was developed and its performance characteristics determined by [facility] in a manner consistent with CLIA requirements. This test has not been cleared or approved by the U.S. Food and Drug Administration. Blood 08/12/2024 7:38 AM CDT 08/13/2024 9:05 AM CDT us Soft Results Interface LAB BLOOD ADD-ON Final Re sult [facility] [address] [place] [address] [facility] [address] [place] [address] [place] [address] * Magnesium (08/12/2024 7:38 AM CDT) Magnesium, S 2.0 1.7 - 2.3 mg/dL 08/13/2024 8:37 AM CDT DTL Blood 08/12/2024 7:38 AM CDT 08/13/2024 6:50 AM CDT us Soft Results Interface LAB BLOOD ADD-ON Final Re sult [facility] [address] [place] [address], [facility] [address] [place] [address] * Folate (08/12/2024 7:38 AM CDT) Pathologist [facility] Folate, S 12.6 >=4.0 mcg/L 08/13/2024 11:28 AM CDT DTL Blood 08/12/2024 7:38 AM CDT 08/13/2024 6:50 AM CDT us Soft Results Interface LAB BLOOD ADD-ON Final Re sult Performing Organization Address [facility] Co de Phone Number [facility] [address] [place], [place] [phone] [place] [address] 200 [place] [address] * Ferritin (08/12/2024 7:38 AM CDT) Pathologist [facility] Ferritin, S 127 11 - 328 mcg/L 08/13/2024 8:37 AM CDT DT Blood 08/12/2024 7:38 AM CDT 08/13/2024 6:50 AM CDT us Soft Results Interface LAB BLOOD ADD-ON Final Re sult Performing Organization Address City/[facility] Co de Phone Number [facility] [address] [place] [address], [facility] [address] [place] [address] * Vitamin B12 Assay (08/12/2024 7:38 AM CDT) [facility] Vitamin B12 Assay, S 277 180 - 914 ng/L 08/13/2024 11:37 AM CDT DTL Comment: ----ADDITIONAL INFORMATION---- In patients being evaluated [...] Interface LAB BLOOD ADD-ON Final Re sult [facility] [address] [place] [address], [place] DTL [facility] [address] [place] [address] * Pathology PRIMARY CARE PEDIATRICIAN Cytology (03/14/2016 4:59 PM CDT) 03/14/2016 4:59 PM CDT 03/14/2016 4:59 PM CDT Narrative [facility] - 03/14/2016 4:59 PM CDT ??03/14/2016 Cytology Gynecological ?([id number]) ? Requested By:Rosalinda Lilly NP ??[phone] ?DIAGNOSIS: A. ??ThinPrep Pap Test Screen (Cervical/Endocervical [...] and 68. ? Report electronically signed by LUIS E Knight(ASCP) ?? 03/19/2016 14:10 Interpreted by: NATO Ro(ASCP) ?? SPECIMEN DESCRIPTION: A. ??ThinPrep Pap Test Screen (Cervical/Endocervical HPV >= 30 years old): ??Received cloudy specimen in ThinPrep vial. ?? Procedure Note 01/08/2018 03/14/2016 Cytology Gynecological ([id number]) Requested By:Rosalinda Lilly, LIEUTENANT SHIFT SUPERVISOR [phone] DIAGNOSIS: A. ThinPrep Pap Test Screen (Cervical/Endocervical [...] LUIS E Knight(ASCP) 03/19/2016 14:10 Interpreted by: NATO Ro(ASCP) SPECIMEN DESCRIPTION: A. ThinPrep Pap Test Screen (Cervical/Endocervical HPV >= 30 years old): Received cloudy specimen in ThinPrep vial. Rosalinda Lilly APRN, C.N.P. LAB PAP COPATH ARA HUI Final Result [facility] [address] [place] [address], [facility] from Last 3 Months or Most Recently Relevant to Health Maintenance Insurance [employer] Advance Directives For more information, please contact: [phone] Documents on File Type Date Recorded Patient Education Instructor Expl anation Advance Directives 04/04/2015 12:00 AM Leg acy document. See document viewer. Care Teams Maintenance Apprentice Relationship Specialty Start Date End Date Elsewhere, Pcp PCP - General Internal Medicine 12/18/21
--- OUTSIDE RECORDS SUMMARY | 2024-08-16 11:48 | XMS_ITS ---
Author Organization [facility] Address [address] [place] [address] Care Team Providers Care Telegraph Repeater Mechanic Name Role Phone Unavailable Unavailable Unavailable Surgery Details Not on file Complications Check Surgery Details section. Procedure Estimated Blood Loss Check Surgery Details section. Procedure Findings Check Surgery Details section. Procedure Specimens Taken Check Surgery Details section.
--- OUTSIDE RECORDS SUMMARY | 2024-08-16 11:48 | XMS_ITS | Encounter Summary ---
Author Organization [facility] Address [address] [place] [address] Care Team Providers Care Glassware Engraver Name Role Phone Elsewhere, Pcp Primary Care Provider Unavailabl e Reason for Referral * Outpatient (Routine) - Closed Specialty Diagnoses / Procedures Referred By Contfranklin t Referred To Contact Diagnoses Screening Mammogram Breast Cancer Procedures BI Breast Screening Bilateral with Tomosynthesis Sonia Levine M.D. [address] [place] [address] Phone: tel: fax: [facility] Referral ID Status Reason Start Date Expiration Date Visits Re quested Visits Authorized [id number] Closed 08/08/2024 08/08/2025 1 1 * Outpatient (Routine) - Closed Specialty Diagnoses / Procedures Referred By Irma torrez Referred To Contact Diagnoses Screening Mammogram Breast Cancer Procedures BI Breast Screening Bilateral with Tomosynthesis Sonia Levine M.D. [address] [place] [address] Phone: tel: fax: [facility] Referral ID Status Reason Start Date Expiration Date Visits Re quested Visits Authorized [id number] Closed 08/08/2024 08/08/2025 1 1 Reason for Visit * Outpatient (Routine) - Closed Specialty Diagnoses / Procedures Referred By Irma torrez Referred To Contact Diagnoses Screening Mammogram Breast Cancer Procedures BI Breast Screening Bilateral with Tomosynthesis Sonia Levine M.D. [address] [place] [address] Phone: tel: fax: [facility] Referral ID Status Reason Start Date Expiration Date Visits Re quested Visits Authorized [id number] Closed 08/08/2024 08/08/2025 1 1 Encounter Details Date Type Department Care Team (Late st Contact Info) Description 08/13/2024 7:25 AM CDT - 08/13/2024 11:59 PM CDT Hospital Encounter Department of Radiology in [place], [place] [address] [place] [address] Sonia Levine M.D. [address] [place] [address] Screening Mammogram Breast Cancer Discharge Disposition: Home or Self Care Social History Tobacco Use Types Packs/Day Years Used Date Smoking Tobacco: Former Cigarettes Q uit: 10/13/1983 Smokeless Tobacco: Never Alcohol Use Standard Drinks/Week Comments Yes 1 (1 standard drink = 0.6 oz pur e alcohol) occasionally [facility] Utilities Answer Date Recorded In the past 12 months has [facility] [employer], gas, oil, or water [employer] threatened to shut off services in your [...] often do you attend chur ch or orthodox services? More than 4 times per year 01/08/2023 Do you belong to any clubs o r organizations such as nondenominational groups, unions, fraternal or athletic groups, or [...] Answer Date Recorded PHQ-2 Score 1 05/03/2022 [facility] - Occupational Stress Questionnaire Answer Date [...] your living situation today? [facility] 08/08/2024 Education Answer Date Recorded What is the highest level of school you have completed or the highest degree you have received? Associate degree: occupational, technical, or vocational program 10/18/2019 Comments No Sex and Gender Information Value Date Recorded Sex Assigned at Female 07/06/2018 4:10 PM CDT Legal Sex Female 2:19 PM [employer] Gender Identity Female 07/06/2018 4:10 PM CDT Sexual Orientation Straight 07/06/2018 4: 10 PM CDT documented as of this encounter Medications at Time of Discharge cholecalciferol (Vitamin D3) 125 mcg (5,000 Unit) capsule Take 125 mcg by mouth daily. hydroCHLOROthiaz cherie (HYDRODIURIL) 25 mg tablet take one tablet by mouth one time daily 90 tablet 2 03/15/2024 LANOLIN/MINERAL OIL/PETROLATUM (ARTIFICIAL TEARS OPHT) Administer 1 drop into both eyes as needed. 03/19/2013 losartan (Cozaar) 50 mg tablet Take 1 tablet (50 mg total) by mouth 2 (two) times a day. 180 tablet 3 08/12/2024 MAGNESIUM GLYCINATE ORAL Take 1 capsule by mouth once a week. omega 0-wey-gim-fish oil 300 mg-100 mg- 150 mg-1,000 mg capsule Take 1 capsule by mouth daily. 08/13/2023 rosuvastatin (Crestor) 5 mg tablet Take 1 tablet (5 mg total) by mouth daily. 90 tablet 3 08/16/2024 traZODone (DESYREL) 12.5 mg tablet Take 50 mg by mouth as needed. 05/28/2022 valACYclovir (VALTREX) 1000 mg tablet Take 2,000 mg by mouth 2 (two) times a day. Not taking right now 03/05/2022 rosuvastatin (Crestor) 5 mg tablet Take 1 tablet (5 mg total) by mouth daily. 90 tablet 3 08/13/2024 documented as of this encounter Plan of Treatment Upcoming Encounters Date Type Department Care Team (Latest Contact Info) Description 09/03/2024 11:00 AM [employer] Comprehensive Visit Division of Nephrology and Hypertension in [place], [place] [address] [place] [phone] Alida Colmenares M.D. [address] [place] [phone] Rowan Walden, RDN, LD [address] [place] [phone] 09/13/2024 8:30 AM [employer] Nurse Only Division of Nephrology and Hypertension in [place], [place] [address] [place] [phone] Alida Colmenares M.D. [address] [place] [phone] Ashanti Brice R.N. [address] [place] [phone] 10/26/2024 2:00 PM [employer] Appointment Department of Cardiovascular Diseases in [place], [place] [address] [place] [phone] Alida Colmenares M.D. [address] [place] [address] Discharge Disposition: Home or Self Care documented as of this encounter Procedures Procedure Name Priority Date/Time Associated Diagnosis Comments BI BREAST SCREENING BILATERAL WITH TOMOSYNTHESIS RAD - Routine (most inpatients and all outpatients) 08/13/2024 8:02 AM CDT Screening Mammogram Breast Cancer documented in this encounter Results * BI Breast Screening Bilateral with [...] ASSESSMENT: BI-RADS: 1: Negative. Sonia Levine M.D. [facility] [place] [place] BI PROCEDURES Final Result documented in this encounter Visit Diagnoses Diagnosis Screening Mammogram Breast Cancer documented in this encounter Additional Health Concerns Assessment Noted Time PHQ-9 Depression Total Score: 7 05/03/20 22 10:25 AM CDT documented as of this encounter Care Teams Glassware Engraver Relationship Specialty Start Date End Date Elsewhere, Pcp PCP - General Internal Medicine 12/18/21 documented as of this encounter
--- OUTSIDE RECORDS SUMMARY | 2024-08-16 11:48 | XMS_ITS | Clinical Summary ---
Author Organization [facility] Address [place], [place] [address] Care Team Providers Care Home Health Care Coordinator Name Role Phone Sonia Chan NP Primary Care Provider [phone] Allergies Active Allergy Reactions Criticality Noted Date Comments Irbesartan Palpitations Medium 07/19/2016 Lisinopril Rash Medium 07/19/2016 Medications Medication Sig Dispensed Refills Start Date End Date Status metoprolol succinate (TOPROL XL) 50 mg sustained-release tablet Take 1 tablet by mouth once daily. 90 tablet 02/20/2016 Active valACYclovir (VALTREX) 500 mg tablet Take 1 tablet by mouth 2 times daily if needed for outbreaks. 6 tablet 3 02/20/2016 Active ferrous sulfate, 65 mg elemental, tablet Take 1 tablet by mouth. 03/25/2014 Active oxyCODONE (ROXICODONE) 5 mg immediate release tabletIndications:Lef t elbow pain Take 1 Tablet (5 mg) by mouth every 4 hours if needed for Pain. 6 Tablet 05/02/2021 Active rx oxyCODONE 5 mg (ROXICODONE) tablet (ED [place] MED)Indications:Left elbow pain Take 1 Tablet (5 mg) by mouth every 4 hours if needed for Pain. 4 Tablet 05/02/2021 Active Active Problems Problem Noted Date Diagnosed Date Rosacea 09/11/2007 Dysthymic disorder 04/02/2007 Polycystic kidney, autosomal dominant 04/02/2007 Overview (04/02/2007): Followed regularly at [facility]. Unspecified essential hypertension 04/02/2007 Palpitations 04/02/2007 Overview (04/02/2007): PVCs Immunizations Name Administration Dates Next Due [...] Outcome GA Total Labor Labor/2nd/3rd Weight Sex Type Anes PTL Dilcia A1 A5 Name Clin Term Term Term Comments secondary to CPD [...] booster 12/21/2022 12/21/2012, 06/13/2005 COVID-19 vaccine series ( season) 2024 03/05/2022, 08/30/2021, 01/24/2021, Additional history exists Influenza for age 50-64 06/13/2024 08/10/20 18, 08/29/2017, 08/29/2017, Additional history exists Pap test for age 21-65 11/27/2024 2, 11/27/2021, 09/09/2007 Tdap Completed 12/21/2012 Pneumococcal series for age 6-64 Aged Out No longer eligible based on patient's age to complete this topic Procedures Procedure Name Priority Date/Time Associated Diagnosis Comments HPV HIGH RISK Routine 11/27/2021 9:28 AM DOCUMENTATION WRITER XR MAMMO SCREENING BILATERAL (IA) Routine 10/01/2007 6:31 PM DOCUMENTATION WRITER Screening Mammogram Other LIPID PANEL Routine 10/01/2007 9:05 AM DOCUMENTATION WRITER Routine General Medical Exam from Last 3 Months or Most Recently Relevant to Health Maintenance Results * HPV HIGH RISK (11/27/2021 9:28 AM DOCUMENTATION WRITER) TYPE 16 Negative Negative 11/29/2021 12:04 PM DOCUMENTATION WRITER [facility] TYPE 18 Negative Negative 11/29/2021 12:04 PM DOCUMENTATION WRITER [facility] OTHER HIGH RISK TYPES Negative Negative 11/29/2021 12:04 PM DOCUMENTATION WRITER [facility] Other (Cervical/Vagina l) 11/27/2021 9:28 AM DOCUMENTATION WRITER 11/28/2021 8:13 AM DOCUMENTATION WRITER Narrative [facility] - 11/29/2021 12:04 PM DOCUMENTATION WRITER HPV types 16, 18, 31, 33, 35, 39, 45, 51, 52, 56, 58, 59, 66 and 68 DNA were undetectable or below the pre-set threshold. Methodology: Viola Danilo 4800 HPV Test Sonia Chan NP MICROBIOLOGY [facility] [address] [place] [address], [place] * XR MAMMO SCREENING BILATERAL (10/01/2007 6:31 PM DOCUMENTATION WRITER) MAMMOGRAM ACR 1 Negative Anatomical Region Laterality Modality BREASTS, Breast Left, Breast Right Bilateral Mammography 10/01/2007 6:31 PM DOCUMENTATION WRITER Narrative 10/02/2007 3:15 PM DOCUMENTATION WRITER Please see scanned document for results of this study. Procedure Note Lars Nielson - 10/02/2007 Please see scanned document for results of this study. Joyce Simmons MAMMO * LIPID PANEL (10/01/2007 9:05 AM DOCUMENTATION WRITER) CHOLESTEROL,TOTAL 184 110 - 199 mg/dL [facility] TRIGLYCERIDES 40 <150 mg/dL [facility] HDL CHOLESTEROL 75 >40 mg/dL [facility] CHOL/HDL RATIO 2.45 <4.51 [facility] LDL CHOLESTEROL 101 <131 mg/dL [facility] PATIENT STATUS Fasting [facility] Blood specimen (specimen) BLOOD SPECIMEN / Unknown 10/01/2007 9:05 AM DOCUMENTATION WRITER 10/01/2007 8:31 AM DOCUMENTATION WRITER Joyce Wilson [place] CHEMISTRY [facility] [address] [place] [phone] from Last 3 Months or Most Recently Relevant to Health Maintenance Care Teams Home Health Care Coordinator Relationship Specialty Start Date End Date Sonia Chan PROGRAM TRAINER [address] [place] [address] PCP - General Emergency Medicine 06/12/22
--- OUTSIDE RECORDS SUMMARY | 2024-08-16 11:48 | XMS_ITS | Encounter Summary ---
Author Organization [facility] Address [address] [place] [address] Care Team Providers Care House Fellow Name Role Phone Elsewhere, Pcp Primary Care Provider Unavailabl e Encounter Details Date Type Department Care Team (Late st Contact Info) Description 08/12/2024 3:45 PM CDT Lab RST RO [facility] [address] [place] [phone] Alida Colmenares M.D. [address] [place] [phone] Polycystic Kidney Autosomal Dominant; Chronic Kidney Disease Stage 2 Glomerular Filtration Rate 60 To 89; Proteinuria Social History Tobacco Use Types Packs/Day Years Used Date Smoking Tobacco: Former Cigarettes Q uit: 10/13/1983 Smokeless Tobacco: Never Alcohol Use Standard Drinks/Week Comments Yes 1 (1 standard drink = 0.6 oz pur e alcohol) occasionally [facility] Utilities Answer Date Recorded In the past 12 months has e [employer], gas, oil, or water [employer] threatened to shut off services in your [...] often do you attend chur ch or faith services? More than 4 times per year 01/08/2023 Do you belong to any clubs o r organizations such as anabaptist groups, unions, fraternal or athletic groups, or [...] Answer Date Recorded PHQ-2 Score 1 05/03/2022 [facility] [place] [facility] - Occupational Stress [...] your living situation today? I have a [facility] place to live 08/08/2024 Education Answer Date Recorded What is the highest level of school you have completed or the highest degree you have received? Associate degree: occupational, technical, or vocational program 10/18/2019 Comments No Sex and Gender Information Value Date Recorded Sex Assigned at Female 07/06/2018 4:10 PM CDT Legal Sex Female 2:19 PM BENCH M[employer] APPRENTICE Gender Identity Female 07/06/2018 4:10 PM CDT Sexual Orientation Straight 07/06/2018 4: 10 PM CDT documented as of this encounter Plan of Treatment Upcoming Encounters Date Type Department Care Team (Latest Contact Info) Description 09/03/2024 11:00 AM BENCH [employer] APPRENTICE Comprehensive Visit Division of Nephrology and Hypertension in [place], [place] [address] [place] [address] Alida Colmenares M.D. [address] [place] [address] Rowan Walden, RDN, LD [address] [place] [phone] 09/13/2024 8:30 AM BENCH M[employer] APPRENTICE Nurse Only Division of Nephrology and Hypertension in [place], [place] [address] [place] [address] Alida Colmenares M.D. [address] [place] [phone] Ashanti Brice R.N. [address] [place] [phone] 10/26/2024 2:00 PM BENCH MOLDER APPRENTICE Appointment Department of Cardiovascular Diseases in [place], [place] [address] [place] [phone] Alida Colmenares M.D. [address] [place] [phone] Discharge Disposition: Home or Self Care documented as of this encounter Procedures Procedure Name Priority Date/Time Associated Diagnosis Comments LIPID PANEL, S Routine 08/12/2024 7:38 AM CDT Polycystic Kidney Autosomal Dominant Chronic Kidney Disease Stage 2 Glomerular Filtration Rate 60 To 89 Proteinuria THYROID FUNCTION CASCADE, S Routine 08/12/2024 7:38 AM CDT IRON AND TOT IRON-BINDING CAPACITY, S/P Routine 08/12/2024 7:38 AM CDT 25-HYDROXYVITAMIN D2 AND D3, S Routine 08/12/2024 7:38 AM CDT MAGNESIUM, S Routine 08/12/2024 7:38 AM CDT FOLATE, S Routine 08/12/2024 7:38 AM CDT FERRITIN, S Routine 08/12/2024 7:38 AM CDT VITAMIN B12 ASSAY, S Routine 08/12/2024 7:38 AM CDT documented in this encounter Results * Iron and Total Iron-Binding Capacity (08/12/2024 [...] Interface LAB BLOOD ADD-ON Final Re sult [facility] [address] [place] [address], [facility] [place] [address] [place] [address] * Folate (08/12/2024 7:38 AM CDT) Pathologist [facility] Folate, S 12.6 >=4.0 mcg/L 08/13/2024 11:28 AM CDT DTL Blood 08/12/2024 7:38 AM CDT 08/13/2024 6:50 AM CDT us Soft Results Interface LAB BLOOD ADD-ON Final Re sult [facility] [address] [place] [address], [facility] [place] [address] [place] [address] * Ferritin (08/12/2024 7:38 AM CDT) Ferritin, S 127 11 - 328 mcg/L 08/13/2024 8:37 AM CDT DTL Blood 08/12/2024 7:38 AM CDT 08/13/2024 6:50 AM CDT us Soft Results Interface LAB BLOOD ADD-ON Final Re sult Performing Organization Address City/[facility] Co de Phone Number [facility] [address] [place] [address] * Thyroid Function [place] (08/12/2024 7:38 AM CDT) TSH, Sensitive 2.4 0.3 - 4.2 mIU/L 08/13/2024 8:37 AM CDT DTL Blood 08/12/2024 7:38 AM CDT 08/13/2024 6:50 AM CDT us Soft Results Interface LAB BLOOD ADD-ON Final Re sult Performing Organization Address [facility] de Phone Number [facility] [address] [place], [place] [phone] [place] [address] [address] [place] [address] * 25-Hydroxyvitamin D2 and D3 (08/12/2024 7:38 AM CDT) 25-Hydroxy D2 <4.0 ng/mL 08/15/2024 11:25 AM BENCH MOLDER APPRENTICE [facility] 25-Hydroxy D3 64 ng/mL 08/15/2024 11:25 AM BENCH MOLDER APPRENTICE [facility] 25-Hydroxy D Total 64 ng/mL 2023 11:25 AM BENCH MOLDER APPRENTICE [facility] Comment: Interpretation: 51-80 ng/mL (increased risk of hypercalciuria) ----REFERENCE VALUE---- 25-HYDROXY D TOTAL (D2+D3) Optimum levels in the healthy population are 20-50. ----ADDITIONAL INFORMATION---- This test was developed and its performance characteristics determined by [facility] in a manner consistent with CLIA requirements. This test has not been cleared or approved by the U.S. Food and Drug Administration. Blood 08/12/2024 7:38 AM CDT 08/13/2024 9:05 AM CDT us Soft Results Interface LAB BLOOD ADD-ON Final Re sult [facility] [address] [place] [address] [facility] [address] [place] [address] [place] [address] * Magnesium (08/12/2024 7:38 AM CDT) Pathologist [facility] Magnesium, S 2.0 1.7 - 2.3 mg/dL 08/13/2024 8:37 AM CDT DTL Blood 08/12/2024 7:38 AM CDT 08/13/2024 6:50 AM CDT us Soft Results Interface LAB BLOOD ADD-ON Final Re sult Performing Organization Address [facility] de Phone Number [facility] [address] [place], [place] [phone] [place] [address] [facility] [place] [address] [place] [address] * Vitamin B12 Assay (08/12/2024 7:38 AM CDT) [facility] Vitamin B12 Assay, S 277 180 - [...] ADD-ON Final Re sult Performing Organization Address [facility]/ZIP Co de Phone Number [facility] [address] [place] [address], [facility] DTL [facility] [address] [place] [address] * (ABNORMAL) Lipid Panel (08/12/2024 7:38 AM [...] Colmenares M.D. LAB BLOOD ADD-ON Final Result [facility] [address] [place] [address], [facility] DTL [facility] [place] [facility] [address] [place] [address] documented in this encounter Visit Diagnoses Diagnosis Polycystic Kidney Autosomal Dominant Chronic Kidney Disease Stage 2 Glomerular Filtration Rate 60 To 89 Proteinuria documented in this encounter Additional Health Concerns Assessment Noted Time PHQ-9 Depression Total Score: 7 05/03/20 22 10:25 AM CDT documented as of this encounter Care Teams House Fellow Relationship Specialty Start Date End Date Elsewhere, Pcp PCP - General Internal Medicine 12/18/21 documented as of this encounter
--- OUTSIDE RECORDS SUMMARY | 2024-08-16 11:48 | XMS_ITS | Encounter Summary ---
Author Organization [facility] Address [address] [place] [address] Care Team Providers Care Clay Carman Name Role Phone Elsewhere, Pcp Primary Care Provider Unavailabl e Reason for Referral * Outpatient (Routine) - Authorized Specialty Diagnoses / Procedures Referred By Irma torrez Referred To Contact Nutrition Diagnoses Polycystic Kidney Autosomal Dominant Chronic Kidney Disease Stage 2 Glomerular Filtration Rate 60 To 89 Proteinuria Alida Colmenares M.D. [address] [place] [address] Phone: tel: fax: [facility] Referral ID Status Reason Start Date Expiration Date V isits Requested Visits Authorized [id number] Authorized 08/12/2024 02/11/2026 1 1 Scheduling Instructions This appointment should ideally be scheduled AFTER the Health Commissioner Consults, but must at least be scheduled 48 hours after 24-hour urine collection is complete. Virtual visit is acceptable for this dietitian visit. * Outpatient (Routine) - Authorized Specialty Diagnoses / Procedures Referred By Irma torrez Referred To Contact Nephrology and Hypertension Alida Colmenares M.D. [address] [place] [address] Phone: tel: fax: [facility] Referral ID Status Reason Start Date Expiration Date V isits Requested Visits Authorized [id number] Authorized 08/12/2024 02/11/2026 1 1 * Cardiovascular-Diagnostic (Routine) - Authorized Specialty Diagnoses / Procedures Referred By Irma torrez Referred To Contact Diagnoses Polycystic Kidney Autosomal Dominant Chronic Kidney Disease Stage 2 Glomerular Filtration Rate 60 To 89 Proteinuria Procedures Echo Transthoracic (TTE) Alida Colmenares M.D. [address] [place] [phone] Phone: tel: fax: [facility] Referral ID Status Reason Start Date Expiration Date V isits Requested Visits Authorized [id number] Authorized 08/12/2024 08/12/2025 1 1 * Outpatient (Routine) - Authorized Specialty Diagnoses / Procedures Referred By Irma torrez Referred To Contact Nephrology and Hypertension Alida Colmenares M.D. [address] [place] [address] Phone: tel: fax: [facility] Referral ID Status Reason Start Date Expiration Date V isits Requested Visits Authorized [id number] Authorized 08/12/2024 02/11/2026 1 1 Reason for Visit * Reason Comments Hypertension * Outpatient (Routine) - Closed Specialty Diagnoses / Procedures Referred By Irma torrez Referred To Contact Nephrology and Hypertension Alida Colmenares M.D. [address] [place] [address] Phone: tel: fax: [facility] Referral ID Status Reason Start Date Expiration Date Visits Re quested Visits Authorized [id number] Closed 07/11/2023 07/10/2026 1 1 Encounter Details Date Type Department Care Team (Latest Contact Info) Description 08/12/2024 3:15 PM CDT Office Visit Division of Nephrology and Hypertension in [place], [place] [address] [place] [phone] Alida Colmenares M.D. [address] [place] [address] Polycystic Kidney Autosomal Dominant (Primary Dx); Chronic Kidney Disease Stage 2 Glomerular Filtration Rate 60 To 89; Proteinuria; Iron Deficiency Anemia Screening Exam; Paresthesias Hand; Paresthesias Feet Social History Tobacco Use Types Packs/Day Years Used Date Smoking Tobacco: Former Cigarettes Q uit: 10/13/1983 Smokeless Tobacco: Never Alcohol Use Standard Drinks/Week Comments Yes 1 (1 standard drink = 0.6 oz pur e alcohol) occasionally [facility] Utilities Answer Date Recorded In the past 12 months has e [employer], gas, oil, or water [employer] threatened to shut off services in your [...] often do you attend chur ch or pentecostal services? More than 4 times per year 01/08/2023 Do you belong to any clubs o r organizations such as jew groups, unions, fraternal or athletic groups, or [...] Answer Date Recorded PHQ-2 Score 1 05/03/2022 [facility]at [facility] - Occupational Stress Questionnaire Answer Date [...] your living situation today? I have a benigno place to live 08/08/2024 Education Answer Date Recorded What is the highest level of school you have completed or the highest degree you have received? Associate degree: occupational, technical, or vocational program 10/18/2019 Comments No Sex and Gender Information Value Date Recorded Sex Assigned at Female 07/06/2018 4:10 PM CDT Legal Sex Female 2:19 PM LEAD POURER Gender Identity Female 07/06/2018 4:10 PM CDT Sexual Orientation Straight 07/06/2018 4: 10 PM CDT documented as of this encounter Last Filed Vital Signs Vital Sign Reading Time Taken Comments Blood Pressure 156/89 08/12/2024 2:59 PM CDT Pulse 65 08/12/2024 2:59 PM CDT Temperature - - Respiratory Rate - - Oxygen Saturation - - Inhaled Oxygen Concentration - - Weight 75.3 kg (166 lb 0.1 oz) 08/12/2024 2:34 P M CDT Height 158.4 cm (5' 2.36) 08/12/2024 2:34 PM CD T Body Mass Index 30.01 08/12/2024 2:34 PM CDT documented in this encounter Patient Instructions * Patient Instructions* Alida Colmenares M.D. - 08/12/2024 3:15 PM CDT Thank you for seeing us in the [facility]. You were seen today for abnormal kidney function that is due to polycystic kidney disease. Your kidney function is currently normal, but your BP is still high. In terms of your medications, I recommend increasing losartan 50 mg to twice a day. We will see the results of your cholesterol panel to determine if you should take the statin. I sent various tests to see why you are having tingling, but if they are all ok, we will have you see our neurologists. For your left-sided chest pain, we will get a heart ultrasound. Monitor your blood pressure at home and send us periodic readings via the [facility]. Our goal blood pressure for you is 110-130/60-80. Avoid all non-steroidal anti-inflammatory drugs (NSAIDs), including ibuprofen, naproxen, Motrin, Advil, Aleve, Celebrex, diclofenac. Tylenol and Excedrin are ok. Please check in with your primary care provider about when you are next due for a colonoscopy. Return to see our nurses in BP clinic in 1 month to monitor your labs and how your BP is respondingto losartan. Return to see me in 3 months with labs prior. documented in this encounter Progress Notes * Alida Colmenares M.D. - 08/12/2024 3:15 PM CDT SUBJECTIVE HISTORY OF PRESENT ILLNESS Freda Manriquez is a 58 y.o. female with hypertension presenting for follow-up of polycystic kidney disease. RENAL HISTORY: Patient was first seen in Nephrology clinic in 12/1996. At the time, patient reported she was diagnosed with autosomal dominant polycystic kidney disease in August 1993 at which time her creatinine was 0.8 mg/dL and she was normotensive. Gene analysis demonstrated PKD 1 Missense, Nontruncating R2802 / M985. CT scan with contrast showed no evidence of aneurysmal disease. Ultrasound of the liver and kidneys was consistent with polycystic kidney disease with [...] with polycystic kidney disease. Her mother is status- post renal transplant in 1993. Since then, 2 of her 3 daughters have been diagnosed with PKD. Management of her PKD has included a beta-wagner for hyp ertension after having an allergic reaction to both and DELMI and ARB, she follows a low-salt diet with increased fluid intake and has regular exercise. She has noted with increased humidity she feels swollen. She visits her daughter in [place] yearly. Of note, in the past she has taken NSAIDs (Celebrex). In terms of renal function, review of available records show that patient's baseline creatinine is 0.6-0.8 mg/dL. Urinalysis had been negative for protein until 06/2023. INTERIM HISTORY: Patient was last seen on 07/11/2023. Since last visit, patient has not had any acute illnesses or hospitalizations. Her abdominal MRI was done that demonstrated multiple hepatic and renal cysts, consistent with known diagnosis autosomal dominant polycystic kidney disease. No suspicious lesions. Volumes slightly reduced compared to MRI 03/22/2021. Her TKV is 868 cc, placing her at [facility] Class 1B. Brain MRI was negative for aneurysms. Her BP continues to be high in the 130-140s/70-80s with only some occasional readings in the 120s. She does have some tingling in her bilateral hands and feed for the last 1-2 months and she feels her blankets are quite heavy. Her sciatica is better overall. She works at a [employer] and denies any exposure to any toxic chemicals. She mostly expresses frustration with not being able to lose weight despite exercise. She has not taken any NSAIDs. Of note, she did not take the statin prescribed at last visit due to concerns about people she talked to reporting side effects. PAST MEDICAL/SURGICAL HISTORY, FAMILY HISTORY AND SOCIAL HISTORY: Reviewed and updated as appropriate. REVIEW OF SYSTEMS Denies fevers/chills, recent changes in mood, SOB, chest pain, nausea/vomiting, change in appetite,metallic taste in mouth, gross hematuria. All other systems were reviewed and were otherwise negative. Allergies Allergen Reactions Irbesartan Palpitations Lisinopril Rash CURRENT MEDICATIONS Current Medications: cholecalciferol (Vitamin D3) 125 mcg (5,000 Unit) capsule, Take 125 mcg by mouth daily. hydroCHLOROthiazide (HYDRODIURIL) 25 mg tablet, take one tablet by mouth one time daily LANOLIN/MINERAL OIL/PETROLATUM (ARTIFICIAL TEARS OPHT), Administer 1 drop into both eyes as needed. losartan (Cozaar) 50 mg tablet, take one tablet by mouth one time daily MAGNESIUM GLYCINATE ORAL, Take 1 capsule by mouth once a week. omega 6-ntd-lbk-fish oil 300 mg-100 mg- 150 mg-1,000 mg capsule, Take 1 capsule by mouth daily. traZODone (DESYREL) 12.5 mg tablet, Take 50 mg by mouth as needed. valACYclovir (VALTREX) 1000 mg tablet, Take 2,000 mg by mouth 2 (two) times a day. Not taking rightnow gabapentin (NEURONTIN) 300 mg capsule, Take 1 capsule (300 mg total) by mouth 2 (two) times a day as needed (Sciatica pain). (Patient not taking: Reported on 08/12/2024) rosuvastatin (CRESTOR) 5 mg tablet, Take 1 tablet (5 mg total) by mouth daily. (Patient not taking:Reported on 08/12/2024) OBJECTIVE PHYSICAL EXAMINATION Vitals: 08/12/24 1434 08/12/24 1459 BP: 156/89 Pulse: 65 Weight: 75.3 kg Height: 158.4 cm Wt Readings from Last 3 Encounters: 08/12/24 75.3 kg 08/11/23 76.5 kg 07/11/23 76 kg General Appearance: Alert, no acute distress. Head: Normocephalic, atraumatic. Eyes: Conjunctivae/corneas clear. ENMT: Normal external nose and ears. Neck: Supple. Lungs: Normal inspiratory effort. Heart: No jugular venous distension. GI: Nondistended. MSK: No lower extremity edema. Derm: No obvious rash or jaundice. Neuro: Speech clear; grossly non-focal. Psych: Normal affect. Hematologic: No excessive bruising noted. DIAGNOSTICS I have personally reviewed all pertinent [facility], including the following: Recent Labs 08/12/24 0741 NA 138 KSERUM 3.6 BICARB 28 BUN 17 CREATININE 0.91 EGFR 74 CALCIUM 9.9 LABPHOS 3.4 No results for input(s): LABIRON, FERRITIN in the last 8760 hours. No results for input(s): UADMSRC3, UADMAPP4, CLARITYU, COLORU, OSMOLALITYU, PHURINE, GLUCOSEU, RERV32SVAHAB, BLOODUR, MICROSCOPIC, RBCU, DYSMORHRBCU, WBCU, GRAMSTNCONFU, NITRITEU, LEUKOCYTESU, BILIRUBINU, UROBILINOGEN, SPECGRAV in the last 8760 hours. Recent Labs 08/12/24 0747 08/11/23 0758 07/11/23 0857 PROTCREATU 0.11 0.12 0.13 Recent Labs 08/12/24 0747 08/11/23 0758 07/11/23 0857 ALBCREARATIO 26 H 18 47 H ASSESSMENT / PLAN Freda Manriquez is a 58 y.o. female with hypertension and polycystic kidney disease seen today for the following: #1 Polycystic Kidney Autosomal Dominant Screening [facility] Class 1B based on TKV. No indication for tolvaptan therapy at the moment. Brain MRA negative for aneurysms. Liver cysts present - referral to hepatology not currently indicated. Echocardiogram - not yet done, will order today. Genetic testing - has been done and positive. Lifestyle We counseled on need for aerobic exercise, large volume water drinking, low sodium / low red meat diet, restricting simple carbs, and weight loss. Patient with question on when next colonoscopy due. Reviewed prior results but no note of when due for repeat. Defer to PCP. Risk of progression Based on Irazabal class and PROPKD scoring system (Catarina Nicholas et al, J Am Soc Nephrol 27: 942-951, 2016), risk of progression to ESRD by age 60 is low (19.3%) with predicated annual rate of eGFR decline of 2 mL/min per 1.73 m2 per year. Patient may benefit from statin both for hyperlipidemia/CVrisk and theoretical benefit for TKV progression (Christo et al, CJASN 2014;9:889-96). Recommended statin, but patient wishes to defer. #2 Chronic Kidney Disease Stage 2 Glomerular [...] to kidney transplant is not currently indicated. Referring back to dietitian for ongoing advice around calorie monitoring. #3 Proteinuria In setting of hypertension and PKD. Goal blood pressure in CKD is 110-130/60-80 mmHg. Patient reports readings at home are still higher and has no edema on exam. Patient is currently on hydrochlorothiazide 25 mg daily and losartan 50 mg daily. We will increase losartan to 50 mg BID today and have patient repeat labs in 1 month to ensure stability of kidney function and electrolytes. We have askedpatient to monitor BP at home and report readings to us via the [facility]. #4 Iron Deficiency Anemia Screening Exam Goal hemoglobin in CKD is 9-11 g/dL. Iron stores pending. No indication for IV iron or DOLORES at this time. #5 Paresthesias of Hands and Feet Unclear etiology. Note she had an EMG before for ulnar neuropathy that was normal. Will check magnesium, TSH, iron, folate, B12, vitamin D. If normal, will re-send for repeat EMG. Follow-up: return in 1 month for RN BP check and in 6 months with me with labs prior. Alida Colmenares M.D. Respiratory Therapy Aide Face Painter Nephrology and Hypertension [facility] documented in this encounter Plan of Treatment Upcoming Encounters Date Type Department Care Team (Latest Contact Info) Description 09/03/2024 11:00 AM LEAD POURER Comprehensive Visit Division of Nephrology and Hypertension in [place], [place] [address] [place] [address] Alida Colmenares M.D. [address] [place] [address] Rowan Walden, RDN, LD [address] [place] [address] 09/13/2024 8:30 AM LEAD POURER Nurse Only Division of Nephrology and Hypertension in [place], [place] [address] [place] [address] Alida Colmenares M.D. [address] [place] [address] Ashanti Brice R.N. [address] [place] [address] 10/26/2024 2:00 PM LEAD POURER Appointment Department of Cardiovascular Diseases in [place], [place] [address] [place] [address] Alida Colmenares M.D. [address] [place] [address] Discharge Disposition: Home or Self Care Scheduled Orders Name Type Priority Associated Diagnoses Order Schedule Echo Transthoracic (TTE) Echocardiography Routine Polycystic Kidney Autosomal Dominant Chronic Kidney Disease Stage 2 Glomerular Filtration Rate 60 To 89 Proteinuria Expected: 08/12/2024, Expires: 11/12/2025 Hemoglobin A1c Lab Add-On Polycystic Kidney Autosomal Dominant Chronic Kidney Disease Stage 2 Glomerular Filtration Rate 60 To 89 Proteinuria Expected: 08/12/2024, Expires: 11/12/2025 Renal Function Panel Lab Routine Polycystic Kidney Autosomal Dominant Chronic Kidney Disease Stage 2 Glomerular Filtration Rate 60 To 89 Proteinuria Expected: 09/11/2024, Expires: 11/12/2025 Scheduled Referrals Name Type Priority Associated Diagnoses Order Schedule Nephrology and Hypertension office visit (clinic) Outpatient Referral Routine Expected: 02/09/2025 (Approximate), Expires: 11/12/2025 Nephrology nurse visit (clinic) Outpatient Referral Routine Expected: 09/11/2024, Expires: 11/12/2025 Nutrition - Nephrology medical nutrition therapy consult (clinic) Outpatient Referral Routine Polycystic Kidney Autosomal Dominant Chronic Kidney Disease Stage 2 Glomerular Filtration Rate 60 To 89 Proteinuria Expected: 08/12/2024, Expires: 11/12/2025 documented as of this encounter Results * (ABNORMAL) Lipid Panel (08/12/2024 7:38 AM CDT) Pathologist [facility] Triglycerides 75 mg/dL 08/13/2024 8:37 AM CDT [...] Colmenares M.D. LAB BLOOD ADD-ON Final Result [facility] - [address] [address], [facility] [address] documented in this encounter Visit Diagnoses Diagnosis Polycystic Kidney Autosomal Dominant- Primary Chronic Kidney Disease Stage 2 Glomerular Filtration Rate 60 To 89 Proteinuria Iron Deficiency Anemia Screening Exam Paresthesias Hand Paresthesias Feet documented in this encounter Additional Health Concerns Assessment Noted Time PHQ-9 Depression Total Score: 7 05/03/20 10:25 AM CDT documented as of this encounter Care Teams Clay Carman Relationship Specialty Start Date End Date Elsewhere, Pcp PCP - General Internal Medicine 12/18/21 documented as of this encounter
--- OUTSIDE RECORDS SUMMARY | 2024-08-16 11:49 | XMS_ITS | Encounter Summary ---
Author Organization [facility] Address [address] [place] [address] Care Team Providers Care Steaming Machine Operator Name Role Phone Elsewhere, Pcp Primary Care Provider Unavailabl e Encounter Details Date Type Department Care Team (Late st Contact Info) Description 02/02/2016 Historical Ophthalmology [facility] Tyler Smith Jr., M.D. [address], [place] [phone] Social History Tobacco Use Types Packs/Day Years Used Date Smoking Tobacco: Never Assessed Comments Unknown Sex and Gender Information Value Date Recorded Sex Assigned at Female 07/06/2018 4:10 PM CDT Legal Sex Female 2:19 PM BLOCK MASON Gender Identity Female 07/06/2018 4:10 PM CDT Sexual Orientation Straight 07/06/2018 4: 10 PM CDT documented as of this encounter Progress Notes * Tyler Smith M.D. - 02/02/2016 8:47 AM CDT Contact Lens Exam MULTI-VISIT DOCUMENT This document contains multiple patient visits and is available for review in Document Viewer. CDM Reports - EYECL Id: [id number] Status: Fnl documented in this encounter Plan of Treatment Upcoming Encounters Date Type Department Care Team (Latest Contact Info) Description 09/03/2024 11:00 AM BLOCK MASON Comprehensive Visit Division of Nephrology and Hypertension in [place], [place] [address] [place] [phone] Alida Colmenares M.D. [address] [place] [phone] Rowan Walden, MAGDALENAN, LD [address] [place] [phone] 09/13/2024 8:30 AM BLOCK MASON Nurse Only Division of Nephrology and Hypertension in [place], [place] [address] [place] [phone] Alida Colmenares M.D. [address] [place] [phone] Ashanti Brice R.N. [address] [place] [phone] 10/26/2024 2:00 PM BLOCK MASON Appointment Department of Cardiovascular Diseases in [place], [place] [address] [place] [phone] Alida Colmenares M.D. [address] [place] [phone] Discharge Disposition: Home or Self Care documented as of this encounter Visit Diagnoses Not on filedocumented in this encounter Additional Health Concerns Assessment Noted Time PHQ-9 Depression Total Score: 0 10/15/19 14 12:16 PM BLOCK MASON documented as of this encounter Care Teams Steaming Machine Operator Relationship Specialty Start Date End Date Elsewhere, Pcp PCP - General Internal Medicine 12/18/21 documented as of this encounter
--- OUTSIDE RECORDS SUMMARY | 2024-08-16 11:49 | XMS_ITS | Encounter Summary ---
Author Organization [facility] Address [address] [place] [address] Care Team Providers Care Bunch Maker Hand Name Role Phone Elsewhere, Pcp Primary Care Provider Unavailabl e Encounter Details Date Type Department Care Team (Late st Contact Info) Description 01/27/2015 Historical Ophthalmology [facility] Tyler Smith Jr., M.D. [address], [place] [phone] Social History Tobacco Use Types Packs/Day Years Used Date Smoking Tobacco: Never Assessed Comments Unknown Sex and Gender Information Value Date Recorded Sex Assigned at Female 07/06/2018 4:10 PM CDT Legal Sex Female 2:19 PM IT GENERALIST Gender Identity Female 07/06/2018 4:10 PM CDT [...] MR /CL CDM Reports - EYEGEN Id: [id number] Status: Fnl documented in this encounter Plan of Treatment Upcoming Encounters Date Type Department Care Team (Latest Contact Info) Description 09/03/2024 11:00 AM IT GENERALIST Comprehensive Visit Division of Nephrology and Hypertension in [place], [place] [address] [place] [phone] Alida Colmenares M.D. [address] [place] [phone] Rowan Walden, MAGDALENAN, LD [address] [place] [phone] 09/13/2024 8:30 AM IT GENERALIST Nurse Only Division of Nephrology and Hypertension in [place], [place] [address] [place] [phone] Alida Colmenares M.D. [address] [place] [phone] Ashanti Brice R.N. [address] [place] [phone] 10/26/2024 2:00 PM IT GENERALIST Appointment Department of Cardiovascular Diseases in [place], [place] [address] [place] [phone] Alida Colmenares M.D. [address] [place] [phone] Discharge Disposition: Home or Self Care documented as of this encounter Visit Diagnoses Not on filedocumented in this encounter Additional Health Concerns Assessment Noted Time PHQ-9 Depression Total Score: 0 10/15/19 14 12:16 PM IT GENERALIST documented as of this encounter Care Teams Bunch Maker Hand Relationship Specialty Start Date End Date Elsewhere, Pcp PCP - General Internal Medicine 12/18/21 documented as of this encounter
--- OUTSIDE RECORDS SUMMARY | 2024-08-16 11:49 | XMS_ITS | Encounter Summary ---
Author Organization [facility] Address [address] [place] [address] Care Team Providers Care Title Vehicle Service Attendant Name Role Phone Elsewhere, Pcp Primary Care Provider Unavailabl e Encounter Details Date Type Department Care Team (Latest Contact Info) Description 08/12/2024 7:00 AM CDT - 08/12/2024 7:09 AM CDT Hospital Encounter Department of Laboratory Medicine and Pathology, [facility] in [place], [place] [address] [place] [address] Alida Colmenares M.D. [address] [place] [address] Polycystic Kidney Autosomal Dominant; Proteinuria Discharge Disposition: Home or Self Care Social History Tobacco Use Types Packs/Day Years Used Date Smoking Tobacco: Former Cigarettes Q uit: 10/13/1983 Smokeless Tobacco: Never Alcohol Use Standard Drinks/Week Comments Yes 1 (1 standard drink = 0.6 oz pur e alcohol) occasionally [facility] Utilities Answer Date Recorded In the past 12 months has e [employer], gas, oil, or water company threatened to [...] How often do you attend chur or congregation services? More than 4 times per year [...] Answer Date Recorded PHQ-2 Score 1 05/03/2022 [facility] [place] of Occupat ional Health - Occupational Stress [...] your living situation today? I have a [facility] place to live 08/08/2024 Education Answer Date Recorded What is the highest level of school you have completed or the highest degree you have received? Associate degree: occupational, technical, or vocational program 10/18/2019 Comments No Sex and Gender Information Value Date Recorded Sex Assigned at Female 07/06/2018 4:10 PM CDT Legal Sex Female 2:19 PM SURGICAL CONSULTANT Gender Identity Female 07/06/2018 4:10 PM CDT Sexual Orientation Straight 07/06/2018 4: 10 PM CDT documented as of this encounter Medications at Time of Discharge hydroCHLOROthiaz cherie (HYDRODIURIL) 25 mg tablet take one tablet by mouth one time daily 90 tablet 2 03/15/2024 LANOLIN/MINERAL OIL/PETROLATUM (ARTIFICIAL TEARS OPHT) Administer 1 drop into both eyes as needed. 03/19/2013 omega 9-fcj-hma-fish oil 300 mg-100 mg- 150 mg-1,000 mg capsule Take 1 capsule by mouth daily. 08/13/2023 traZODone (DESYREL) 12.5 mg tablet Take 50 mg by mouth as needed. 05/28/2022 valACYclovir (VALTREX) 1000 mg tablet Take 2,000 mg by mouth 2 (two) times a day. Not taking right now 03/05/2022 documented as of this encounter Plan of Treatment Upcoming Encounters Date Type Department Care Team (Latest Contact Info) Description 09/03/2024 11:00 AM SURGICAL CONSULTANT Comprehensive Visit Division of Nephrology and Hypertension in [place], [place] [address] [place] [phone] Alida Colmenares M.D. [address] [place] [phone] Rowan Walden, JORGE ALBERTO, LD [address] [place] [phone] 09/13/2024 8:30 AM SURGICAL CONSULTANT Nurse Only Division of Nephrology and Hypertension in [place], [place] [address] [place] [phone] Alida Colmenares M.D. [address] [place] [phone] Ashanti Brice R.N. [address] [place] [phone] 10/26/2024 2:00 PM SURGICAL CONSULTANT Appointment Department of Cardiovascular Diseases in [place], [place] [address] [place] [phone] Alida Colmenares M.D. [address] [place] [phone] Discharge Disposition: Home or Self Care documented as of this encounter Procedures Procedure Name Priority Date/Time Associated Diagnosis Comments RENAL FUNCTION PANEL, S Routine 08/12/2024 7:41 AM CDT Polycystic Kidney Autosomal Dominant Proteinuria documented in this encounter Results * Renal Function Panel (08/12/2024 7:41 AM [...] Colmenares M.D. LAB BLOOD ADD-ON Final Result [facility] [address] [place] [address], [place] DTL [facility] [address] [place] [address] documented in this encounter Visit Diagnoses Diagnosis Polycystic Kidney Autosomal Dominant Proteinuria documented in this encounter Additional Health Concerns Assessment Noted Time PHQ-9 Depression Total Score: 7 05/03/20 22 10:25 AM CDT documented as of this encounter Care Teams Title Vehicle Service Attendant Relationship Specialty Start Date End Date Elsewhere, Pcp PCP - General Internal Medicine 12/18/21 documented as of this encounter
--- OUTSIDE RECORDS SUMMARY | 2024-08-16 11:49 | XMS_ITS | Encounter Summary ---
Author Organization [facility] Address [address] [place] [address] Care Team Providers Care Impact Retail Service Merchandiser Name Role Phone Elsewhere, Pcp Primary Care Provider Unavailabl e Encounter Details Date Type Department Care Team (Late st Contact Info) Description 01/27/2015 Historical Ophthalmology [facility] Tyler Smith Jr., M.D. [address] [phone] Social History Tobacco Use Types Packs/Day Years Used Date Smoking Tobacco: Never Assessed Comments Unknown Sex and Gender Information Value Date Recorded Sex Assigned at Female 07/06/2018 4:10 PM CDT Legal Sex Female 2:19 PM CASH MANAGEMENT COORDINATOR Gender Identity Female 07/06/2018 4:10 PM CDT Sexual Orientation Straight 07/06/2018 4: 10 PM CDT documented as of this encounter Progress Notes * Tyler Smith M.D. - 01/27/2015 8:03 AM CDT Contact Lens Exam IMPRESSION / REPORT / PLAN See EYE GEN note; OK to continue CL CDM Reports - EYECL Id: [id number] Status: Fnl documented in this encounter Plan of Treatment Upcoming Encounters Date Type Department Care Team (Latest Contact Info) Description 09/03/2024 11:00 AM CASH MANAGEMENT COORDINATOR Comprehensive Visit Division of Nephrology and Hypertension in [place], [place] [address] [place] [phone] Alida Colmenares M.D. [address] [place] [phone] Rowan Walden, RDN, LD [address] [place] [phone] 09/13/2024 8:30 AM CASH MANAGEMENT COORDINATOR Nurse Only Division of Nephrology and Hypertension in [place], [place] [address] [place] [phone] Alida Colmenares M.D. [address] [place] [phone] Ashanti Brice R.N. [address] [place] [phone] 10/26/2024 2:00 PM CASH MANAGEMENT COORDINATOR Appointment Department of Cardiovascular Diseases in [place], [place] [address] [place] [phone] Alida Colmenares M.D. [address] [place] [phone] Discharge Disposition: Home or Self Care documented as of this encounter Visit Diagnoses Not on filedocumented in this encounter Additional Health Concerns Assessment Noted Time PHQ-9 Depression Total Score: 0 10/15/19 14 12:16 PM CASH MANAGEMENT COORDINATOR documented as of this encounter Care Teams Impact Retail Service Merchandiser Relationship Specialty Start Date End Date Elsewhere, Pcp PCP - General Internal Medicine 12/18/21 documented as of this encounter
--- OUTSIDE RECORDS SUMMARY | 2024-08-16 11:49 | XMS_ITS | Encounter Summary ---
Author Organization [facility] Address [address] [place] [address] Care Team Providers Care Mud Analysis Well Logging Captain Name Role Phone Elsewhere, Pcp Primary Care Provider Unavailabl e Encounter Details Date Type Department Care Team (Late st Contact Info) Description 02/02/2016 Historical Ophthalmology [facility] Tyler Smith Jr., M.D. [address], [place] [phone] Social History Tobacco Use Types Packs/Day Years Used Date Smoking Tobacco: Never Assessed Comments Unknown Sex and Gender Information Value Date Recorded Sex Assigned at Female 07/06/2018 4:10 PM CDT Legal Sex Female 2:19 PM SORTER PACKER Gender Identity Female 07/06/2018 4:10 PM CDT [...] #2 Presbyopia CDM Reports - EYEGEN Id: [id number] Status: Fnl documented in this encounter Plan of Treatment Upcoming Encounters Date Type Department Care Team (Latest Contact Info) Description 09/03/2024 11:00 AM SORTER PACKER Comprehensive Visit Division of Nephrology and Hypertension in [place], [place] [address] [place] [phone] Alida Colmenares M.D. [address] [place] [phone] Rowan Walden, MAGDALENAN, LD [address] [place] [phone] 09/13/2024 8:30 AM SORTER PACKER Nurse Only Division of Nephrology and Hypertension in [place], [place] [address] [place] [phone] Alida Colmenares M.D. [address] [place] [phone] Ashanti Brice R.N. [address] [place] [phone] 10/26/2024 2:00 PM SORTER PACKER Appointment Department of Cardiovascular Diseases in [place], [place] [address] [place] [phone] Alida Colmenares M.D. [address] [place] [phone] Discharge Disposition: Home or Self Care documented as of this encounter Visit Diagnoses Not on filedocumented in this encounter Additional Health Concerns Assessment Noted Time PHQ-9 Depression Total Score: 0 10/15/19 14 12:16 PM SORTER PACKER documented as of this encounter Care Teams Mud Analysis Well Logging Captain Relationship Specialty Start Date End Date Elsewhere, Pcp PCP - General Internal Medicine 12/18/21 documented as of this encounter
--- OUTSIDE RECORDS SUMMARY | 2024-08-16 11:49 | XMS_ITS ---
Author Organization [facility] Address [address] [place] [address] Care Team Providers Care Furnace Fitter Name Role Phone Elsewhere, Pcp Primary Care Provider Unavailabl e Polycystic Kidney Disease (PKD) Status:Identified (Enrolling) Start date:08/12/2024 Continued Care and Services Coordination
--- OUTSIDE RECORDS SUMMARY | 2024-08-16 11:49 | XMS_ITS | Encounter Summary ---
Author Organization [facility] Address [address] [place] [address] Care Team Providers Care Personal Financial Representative Name Role Phone Elsewhere, Pcp Primary Care Provider Unavailabl e Reason for Visit * Reason Comments Med Refill Encounter Details Date Type Department Care Team (Late st Contact Info) Description 07/09/2024 Refill Division of Nephrology and Hypertension in [place], [place] [address] [place] [address] Alida Colmenares M.D. [address] [place] [address] Med Refill Social History Tobacco Use Types [...] How often do you attend chur or voodoo services? More than 4 times per year 01/08/2023 Do you belong to any clubs o r organizations such as samaritan groups, unions, fraternal or athletic groups, or [...] Answer Date Recorded PHQ-2 Score 1 05/03/2022 [facility] of Occupat ional Health - Occupational [...] PM CDT Legal Sex Female 2:19 PM COREMAKER SUPERVISOR Gender Identity Female 07/06/2018 4:10 PM CDT Sexual Orientation Straight 07/06/2018 4: 10 PM CDT documented as of this encounter Plan of Treatment Upcoming Encounters Date Type Department Care Team (Latest Contact Info) Description 09/03/2024 11:00 AM COREMAKER SUPERVISOR Comprehensive Visit Division of Nephrology and Hypertension in [place], [place] [address] [place] [phone] Alida Colmenares M.D. [address] [place] [phone] Rowan Walden, RDN, LD [address] [place] [phone] 09/13/2024 8:30 AM COREMAKER SUPERVISOR Nurse Only Division of Nephrology and Hypertension in [place], [place] [address] [place] [phone] Alida Colmenares M.D. [address] [place] [phone] Ashanti Brice R.N. [address] [place] [phone] 10/26/2024 2:00 PM COREMAKER SUPERVISOR Appointment Department of Cardiovascular Diseases in [place], [place] [address] [place] [phone] Alida Colmenares M.D. [address] [place] [phone] Discharge Disposition: Home or Self Care documented as of this encounter Visit Diagnoses Not on filedocumented in this encounter Additional Health Concerns Assessment Noted Time PHQ-9 Depression Total Score: 7 05/03/20 22 10:25 AM CDT documented as of this encounter Care Teams Personal Financial Representative Relationship Specialty Start Date End Date Elsewhere, Pcp PCP - General Internal Medicine 12/18/21 documented as of this encounter
--- OUTSIDE RECORDS SUMMARY | 2024-08-16 11:49 | XMS_ITS | Encounter Summary ---
Author Organization [facility] Address [address] [place] [address] Care Team Providers Care Mobile Lounge Driver Or Operator Name Role Phone Elsewhere, Pcp Primary Care Provider Unavailabl e Encounter Details Date Type Department Care Team (Latest Contact Info) Description 08/12/2024 7:10 AM CDT - 08/12/2024 11:59 PM CDT Hospital Encounter Department of Laboratory Medicine and Pathology, [facility] in [place], [place] [address] [place] [address] Alida Colmenares M.D. [address] [place] [phone] Polycystic Kidney Autosomal Dominant; Proteinuria Discharge Disposition: Home or Self Care Social History Tobacco Use Types Packs/Day Years Used Date Smoking Tobacco: Former Cigarettes Q uit: 10/13/1983 Smokeless Tobacco: Never Alcohol Use Standard Drinks/Week Comments Yes 1 (1 standard drink = 0.6 oz pur e alcohol) occasionally [facility] Utilities Answer Date Recorded In the past 12 months has e [employer], gas, oil, or water company threatened to [...] How often do you attend chur or synagogue services? More than 4 times per year 01/08/2023 Do you belong to any clubs o r organizations such as gnosticism groups, unions, fraternal or athletic groups, or [...] Answer Date Recorded PHQ-2 Score 1 05/03/2022 [facility] of Occupat ional Health - Occupational Stress [...] your living situation today? I have a [facility] place to live 08/08/2024 Education Answer Date Recorded What is the highest level of school you have completed or the highest degree you have received? Associate degree: occupational, technical, or vocational program 10/18/2019 Comments No Sex and Gender Information Value Date Recorded Sex Assigned at Female 07/06/2018 4:10 PM CDT Legal Sex Female 2:19 PM SIGNAL INTELLIGENCE ANALYST Gender Identity Female 07/06/2018 4:10 PM CDT [...] capsule by mouth once a week. omega 5-fpd-zoa-fish oil 300 mg-100 mg- 150 mg-1,000 mg [...] (Latest Contact Info) Description 09/03/2024 11:00 AM SIGNAL INTELLIGENCE ANALYST Comprehensive Visit Division of Nephrology and Hypertension in [place], [place] [address] [place] [phone] Alida Colmenares M.D. [address] [place] [phone] Rowan Walden, RDN, LD [address] [place] [phone] 09/13/2024 8:30 AM SIGNAL INTELLIGENCE ANALYST Nurse Only Division of Nephrology and Hypertension in [place], [place] [address] [place] [phone] Alida Colmenares M.D. [address] [place] [phone] Ashanti Brice R.N. [address] [place] [phone] 10/26/2024 2:00 PM SIGNAL INTELLIGENCE ANALYST Appointment Department of Cardiovascular Diseases in [place], [place] [address] [place] [phone] Alida Colmenares M.D. [address] [place] [phone] Discharge Disposition: Home or Self Care documented as of this encounter Procedures Procedure Name Priority Date/Time Associated Diagnosis Comments ALBUMIN, RANDOM, U Routine 08/12/2024 7: 47 AM CDT Polycystic Kidney Autosomal Dominant Proteinuria PROTEIN/CREATININE RATIO, RANDOM, URINE Routine 08/12/2024 7:47 AM CDT Polycystic Kidney Autosomal Dominant Proteinuria documented in this encounter Results * Protein/Creatinine Ratio, Random, Urine (08/12/2024 7:47 [...] M.D. LAB URINE ORDERABLES Final Re sult [facility] [address] [place], [place] [phone] [place] [address] [facility] [place] [address] [place] [address] * (ABNORMAL) Albumin, Random, Urine (08/12/2024 7:47 AM CDT) Albumin, Random, U 18.4 mg/L 2023 1:45 PM CDT DTL Comment: ----ADDITIONAL INFORMATION---- This test has been modified from the contract clerk automobile's instructions. Its performance characteristics were determined by [...] M.D. LAB URINE ORDERABLES Final Re sult [facility] [address] [place] [address], [facility] [place] [address] [place] [address] documented in this encounter Visit Diagnoses Diagnosis Polycystic Kidney Autosomal Dominant Proteinuria documented in this encounter Additional Health Concerns Assessment Noted Time PHQ-9 Depression Total Score: 7 05/03/20 10:25 AM CDT documented as of this encounter Care Teams Mobile Lounge Driver Or Operator Relationship Specialty Start Date End Date Elsewhere, Pcp PCP - General Internal Medicine 12/18/21 documented as of this encounter
== END 2024-08-16 11:41 | disposition home or self-care (01) ==
PROVIDERS: PCP Nurse Practitioner Family; Visit Provider Nurse Practitioner Family
DX: R07.89 Other chest pain (principal)
CPT/HCPCS: 84484; 85025

== ENCOUNTER 2024-08-30 10:47 | Outpatient (CLI) | payer MEDICAID, SELFPAY ==
--- OUTSIDE RECORDS SUMMARY | 2024-09-03 04:45 | XMS_ITS | Clinical Summary ---
Author Organization [facility] Address [place], [place] [address] Care Team Providers Care Armed Guard Name Role Phone Sonia Chan NP Primary Care Provider [phone] Allergies Active Allergy Reactions Criticality Noted Date [...] rx oxyCODONE 5 mg (ROXICODONE) tablet (ED [place] MED)Indications:Left elbow pain Take 1 Tablet (5 mg) by mouth every 4 hours if needed for Pain. 4 Tablet 05/02/2021 Active Active Problems Problem Noted Date Diagnosed Date Rosacea 09/11/2007 Dysthymic disorder 04/02/2007 Polycystic kidney, autosomal dominant 04/02/2007 Overview (04/02/2007): Followed regularly at [facility]. Unspecified essential hypertension 04/02/2007 Palpitations 04/02/2007 [...] 72 06/12/2022 8:36 PM CDT Temperature 36.8 C (98.2 F) 06/12/2022 8:36 PM CDT Respiratory Rate 16 06/12/2022 8:36 PM CDT [...] booster 12/21/2022 12/21/2012, 06/13/2005 COVID-19 vaccine series (2023- season) 2024 03/05/2022, 08/30/2021, 01/24/2021, Additional history [...] HPV HIGH RISK Routine 11/27/2021 9:28 AM CONVEYOR CONSOLE OPERATOR XR MAMMO SCREENING BILATERAL (IA) Routine 10/01/2007 6:31 PM CONVEYOR CONSOLE OPERATOR Screening Mammogram Other LIPID PANEL Routine 10/01/2007 9:05 AM CONVEYOR CONSOLE OPERATOR Routine General Medical Exam from Last 3 Months or Most Recently Relevant to Health Maintenance Results * HPV HIGH RISK (11/27/2021 9:28 AM CONVEYOR CONSOLE OPERATOR) TYPE 16 Negative Negative 11/29/2021 12:04 PM CONVEYOR CONSOLE OPERATOR [facility] TYPE 18 Negative Negative 11/29/2021 12:04 PM CONVEYOR CONSOLE OPERATOR [facility] OTHER HIGH RISK TYPES Negative Negative 11/29/2021 12:04 PM CONVEYOR CONSOLE OPERATOR [facility] Other (Cervical/Vagina l) 11/27/2021 9:28 AM CONVEYOR CONSOLE OPERATOR 11/28/2021 8:13 AM CONVEYOR CONSOLE OPERATOR Narrative [facility] - 11/29/2021 12:04 PM CONVEYOR CONSOLE OPERATOR HPV types 16, 18, 31, 33, 35, 39, 45, 51, 52, 56, 58, 59, 66 and 68 DNA were undetectable or below the pre-set threshold. Methodology: Viola Danilo 4800 HPV Test Sonia Chan NP MICROBIOLOGY [facility] [address] [place] [address], * XR MAMMO SCREENING BILATERAL (10/01/2007 6:31 PM CONVEYOR CONSOLE OPERATOR) MAMMOGRAM ACR 1 Negative Anatomical Region Laterality Modality BREASTS, Breast Left, Breast Right Bilateral Mammography 10/01/2007 6:31 PM CONVEYOR CONSOLE OPERATOR Narrative 10/02/2007 3:15 PM CONVEYOR CONSOLE OPERATOR Please see scanned document for results of this study. Procedure Note Lars Nielson - 10/02/2007 Please see scanned document for results of this study. Joyce Rasmussenjuanvasquez MAMMO * LIPID PANEL (10/01/2007 9:05 AM CONVEYOR CONSOLE OPERATOR) CHOLESTEROL,TOTAL 184 110 - 199 mg/dL [facility] TRIGLYCERIDES 40 <150 mg/dL [facility] HDL CHOLESTEROL 75 >40 mg/dL [facility] CHOL/HDL RATIO 2.45 <4.51 [facility] LDL CHOLESTEROL 101 <131 mg/dL [facility] PATIENT STATUS Fasting [facility] Blood specimen (specimen) BLOOD SPECIMEN / Unknown 10/01/2007 9:05 AM CONVEYOR CONSOLE OPERATOR 10/01/2007 8:31 AM CONVEYOR CONSOLE OPERATOR Joyce Wilson [place] CHEMISTRY [facility] [address] [place] [id number] from Last 3 Months or Most Recently Relevant to Health Maintenance Care Teams Armed Guard Relationship Specialty Start Date End Date Sonia Chan, OFFICE MACHINE EMBOSSOGRAPH OPERATOR [address] [place] [address] PCP - General Emergency Medicine 06/12/22
--- OUTSIDE RECORDS SUMMARY | 2024-09-03 04:46 | XMS_ITS | Encounter Summary ---
Author Organization [facility] Address [address] [place] [address] Care Team Providers Care Fleecer Name Role Phone Elsewhere, Pcp Primary Care Provider Unavailabl e Encounter Details Date Type Department Care Team (Latest Contact Info) Description 08/12/2024 7:10 AM CDT - 08/12/2024 11:59 PM CDT Hospital Encounter Department of Laboratory Medicine and Pathology, [facility] in [place], [place] [address] [place] [address] Alida Colmenares M.D. [address] [place] [address] Polycystic Kidney Autosomal Dominant; Proteinuria Discharge Disposition: Home or Self Care Social History Tobacco Use Types Packs/Day Years Used Date Smoking Tobacco: Former Cigarettes Q uit: 10/13/1983 Smokeless Tobacco: Never Alcohol Use Standard Drinks/Week Comments Yes 1 (1 standard drink = 0.6 oz pur e alcohol) occasionally [facility] Utilities Answer Date Recorded In the past 12 months has e [employer], gas, oil, or water company threatened to [...] How often do you attend chur or temple services? More than 4 times per year 01/08/2023 Do you belong to any clubs o r organizations such as sabianism groups, unions, fraternal or athletic groups, or [...] Answer Date Recorded PHQ-2 Score 1 05/03/2022 [facility] Occupat ional Health - Occupational Stress [...] your living situation today? I have a [facility] place to live 08/08/2024 Education Answer Date Recorded What is the highest level of school you have completed or the highest degree you have received? Associate degree: occupational, technical, or vocational program 10/18/2019 Comments No Sex and Gender Information Value Date Recorded Sex Assigned at Female 07/06/2018 4:10 PM CDT Legal Sex Female 2:19 PM BIO MEDICAL TECHNICIAN Gender Identity Female 07/06/2018 4:10 PM CDT [...] capsule by mouth once a week. omega 6-rwg-dep-fish oil 300 mg-100 mg- 150 mg-1,000 mg [...] (Latest Contact Info) Description 09/03/2024 11:00 AM BIO MEDICAL TECHNICIAN Comprehensive Visit Division of Nephrology and Hypertension in [place], [place] [address] [place] [phone] Alida Colmenares M.D. [address] [place] [phone] Rowan Walden, RDN, LD [address] [place] [phone] 09/13/2024 8:30 AM BIO MEDICAL TECHNICIAN Nurse Only Division of Nephrology and Hypertension in [place], [place] [address] [place] [phone] Alida Colmenares M.D. [address] [place] [phone] Ashanti Brice R.N. [address] [place] [phone] 10/26/2024 2:00 PM BIO MEDICAL TECHNICIAN Appointment Department of Cardiovascular Diseases in [place], [place] [address] [place] [phone] Alida Colmenares M.D. [address] [place] [address] Discharge Disposition: Home or Self Care documented [...] M.D. LAB URINE ORDERABLES Final Re sult [facility] [address] [place], [place] [phone] [place] [address] [facility] [address] [place] [address] * (ABNORMAL) Albumin, Random, Urine (08/12/2024 7:47 AM CDT) Albumin, Random, U 18.4 mg/L 2023 1:45 PM CDT DTL Comment: ----ADDITIONAL INFORMATION---- This test has been modified from the mending carrier's instructions. Its performance characteristics were determined by [facility] in a manner consistent with CLIA requirements. This test has not been cleared or approved by the U.S. Food and Drug Administration. Creatinine 72 mg/dL 08/12/2024 8:57 AM CDT DTL Albumin/Creatinine Ratio 26(H) <25 mg/g 08/12/2024 1:45 PM CDT DTL Urine (Urine, Midstream) 08/12/2024 7:47 AM CDT 08/12/2024 8:08 AM CDT Alida Colmenares M.D. LAB URINE ORDERABLES Final Re sult [facility] [address] [place] [address], [facility] [address] [place] [address] documented in this encounter Visit Diagnoses Diagnosis Polycystic Kidney Autosomal Dominant Proteinuria documented in this encounter Additional Health Concerns Assessment Noted Time PHQ-9 Depression Total Score: 7 05/03/20 10:25 AM CDT documented as of this encounter Care Teams Fleecer Relationship Specialty Start Date End Date Elsewhere, Pcp PCP - General Internal Medicine 12/18/21 documented as of this encounter
--- OUTSIDE RECORDS SUMMARY | 2024-09-03 04:46 | XMS_ITS | Encounter Summary ---
Author Organization [facility] Address [address] [place] [address] Care Team Providers Care Electric Meter Installer Helper Name Role Phone Elsewhere, Pcp Primary Care Provider Unavailabl e Encounter Details Date Type Department Care Team (Late st Contact Info) Description 09/01/2024 Patient Outreach Division of Nephrology and Hypertension in [place], [place] [address] [place] [address] Esme Mcgee, RCarenNCaren [address] [place] [phone] Social History Tobacco Use Types Packs/Day Years Used Date Smoking Tobacco: Former Cigarettes Q uit: 10/13/1983 Smokeless Tobacco: Never Alcohol Use Standard Drinks/Week Comments Yes 1 (1 standard drink = 0.6 oz pur e alcohol) occasionally [facility] Utilities Answer Date Recorded In the past 12 months has e [employer], gas, oil, or water [employer] threatened to shut off services in your [...] How often do you attend chur or religion services? More than 4 times per year 01/08/2023 Do you belong to any clubs o r organizations such as denominational groups, unions, fraternal or athletic groups, or [...] Answer Date Recorded PHQ-2 Score 1 05/03/2022 [facility] of Occupat ional Health - Occupational [...] your living situation today? I have a [facility] place to live 08/08/2024 Education Answer Date Recorded What is the highest level of school you have completed or the highest degree you have received? Associate degree: occupational, technical, or vocational program 10/18/2019 Comments No Sex and Gender Information Value Date Recorded Sex Assigned at Female 07/06/2018 4:10 PM CDT Legal Sex Female 2:19 PM WOOD STRIP BLOCK FLOOR INSTALLER Gender Identity Female 07/06/2018 4:10 PM CDT Sexual Orientation Straight 07/06/2018 4: 10 PM CDT documented as of this encounter Plan of Treatment Upcoming Encounters Date Type Department Care Team (Latest Contact Info) Description 09/03/2024 11:00 AM WOOD STRIP BLOCK FLOOR INSTALLER Comprehensive Visit Division of Nephrology and Hypertension in [place], [place] [address] [place] [address] Alida Colmenares M.D. [address] [place] [address] Rowan Walden, RDN, LD [address] [place] [phone] 09/13/2024 8:30 AM WOOD STRIP BLOCK FLOOR INSTALLER Nurse Only Division of Nephrology and Hypertension in [place], [place] [address] [place] [phone] Alida Colmenares M.D. [address] [place] [phone] Ashanti Brice R.N. [address] [place] [phone] 10/26/2024 2:00 PM WOOD STRIP BLOCK FLOOR INSTALLER Appointment Department of Cardiovascular Diseases in [place], [place] [address] [place] [phone] Alida Colmenares M.D. [address] [place] [phone] Discharge Disposition: Home or Self Care documented as of this encounter Visit Diagnoses Not on filedocumented in this encounter Additional Health Concerns Assessment Noted Time PHQ-9 Depression Total Score: 7 05/03/20 22 10:25 AM CDT documented as of this encounter Care Teams Electric Meter Installer Helper Relationship Specialty Start Date End Date Elsewhere, Pcp PCP - General Internal Medicine 12/18/21 documented as of this encounter
--- OUTSIDE RECORDS SUMMARY | 2024-09-03 04:46 | XMS_ITS | Clinical Summary ---
Author Organization [facility] Address [address] [place] [address] Care Team Providers Care Grain Elevator Motor Starter Name Role Phone Elsewhere, Pcp Primary Care Provider Unavailabl e Source Comments Patient records contain information from all sites at [facility]. For routine questions regarding patient records, call [phone] during business hours, M-F 8:00 AM - 5:00 PM Central Time. Record requests for emergency care only can be directed to [phone] at any time.[facility] Allergies Active Allergy Reactions Criticality Noted Date Comments Irbesartan Palpitations Medium 07/19/2016 Lisinopril Rash Medium 07/19/2016 Medications * This document contains information received from the source organization and may not represent a complete record from that organization. LANOLIN/LETTER STAMPING MACHINE OPERATOR AL OIL/PETROLATU M (ARTIFICIAL TEARS OPHT) Administer [...] 125 mcg by mouth daily. Active omega 7-yiy-hxh-fis h oil 300 mg-100 mg- 150 mg-1,000 [...] tablet 3 Active multivit,stre ss formula-zinc (b idlpmzj-B-B-z inc) tablet Take 1 tablet by mouth [...] Encounters Date Type Department Care Team Description 09/01/2024 Patient Outreach Division of Nephrology and Hypertension in [place], [place] [address] [place] [address] Esme Mcgee RSanjeev. 08/13/2024 9:00 AM CDT Immunization Section of Infectious Diseases in [place], [place] [address] [place] [phone] Freda Craft M.S.N., R.N., C.M.S.R.N. 08/13/2024 7:25 AM CDT - 08/13/2024 11:59 PM CDT Hospital Encounter Department of Radiology in [place], [place] [address] [place] [address] Sonia Levine M.D. Screening Mammogram Breast Cancer Discharge Disposition: Home or Self Care 08/12/2024 3:45 PM CDT Lab RST RO [facility] [address] [place] [phone] Alida Colmenares M.D. Polycystic Kidney Autosomal Dominant; Chronic Kidney Disease Stage 2 Glomerular Filtration Rate 60 To 89; Proteinuria 08/12/2024 3:15 PM CDT Office Visit Division of Nephrology and Hypertension in [place], [place] [address] [place] [phone] Alida Colmenares M.D. Polycystic Kidney Autosomal Dominant (Primary Dx); Chronic Kidney Disease Stage 2 Glomerular Filtration Rate 60 To 89; Proteinuria; Iron Deficiency Anemia Screening Exam; Paresthesias Hand; Paresthesias Feet 08/12/2024 7:10 AM CDT - 08/12/2024 11:59 PM CDT Hospital Encounter Department of Laboratory Medicine and Pathology, [place], [place] [address] [place] [address] Alida Colmenares M.D. Polycystic Kidney Autosomal Dominant; Proteinuria Discharge Disposition: Home or Self Care 08/12/2024 7:00 AM CDT - 08/12/2024 7:09 AM CDT Hospital Encounter Department of Laboratory Medicine and Pathology, [place], [place] [address] [place] [address] Alida Colmenares M.D. Polycystic Kidney Autosomal Dominant; Proteinuria Discharge Disposition: Home or Self Care 07/09/2024 Refill Division of Nephrology and Hypertension in [place], [place] [address] [place] [address] Alida Colmenares M.D. Med Refill from Last [...] = 0.6 oz pur e alcohol) occasionally [facility] Utilities Answer Date Recorded In the past 12 months has e [employer], gas, oil, or water [employer] threatened to shut off services in your [...] often do you attend chur ch or anglican services? More than 4 times per year 01/08/2023 Do you belong to any clubs o r organizations such as restoration groups, unions, fraternal or athletic groups, or [...] Answer Date Recorded PHQ-2 Score 1 05/03/2022 [facility] - Occupational Stress Questionnaire Answer Date [...] your living situation today? I have a [facility] place to live 08/08/2024 Education Answer Date Recorded What is the highest level of school you have completed or the highest degree you have received? Associate degree: occupational, technical, or vocational program 10/18/2019 Comments No Sex and Gender Information Value Date Recorded Sex Assigned at Female 07/06/2018 4:10 PM CDT Legal Sex Female 2:19 PM PRODUCTION OPERATIONS MANAGER Gender Identity Female 07/06/2018 4:10 PM CDT Sexual Orientation Straight 07/06/2018 4: 10 PM CDT Last Filed Vital Signs Vital Sign Reading Time Taken Comments Blood Pressure 156/89 08/12/2024 2:59 PM CDT Pulse 65 08/12/2024 2:59 PM CDT Temperature 35.2 C (95.4 F) 07/11/2023 1:24 PM CDT Respiratory Rate 12 07/29/2018 10:16 AM CDT [...] (Latest Contact Info) Description 09/03/2024 11:00 AM PRODUCTION OPERATIONS MANAGER Comprehensive Visit Division of Nephrology and Hypertension in [place], [place] 200 [place] [phone] Alida Colmenares M.D. 200 [place] [phone] Rowan Walden, RDN, LD [address] [place] [address] 09/13/2024 8:30 AM PRODUCTION OPERATIONS MANAGER Nurse Only Division of Nephrology and Hypertension in [place], [place] [address] [place] [address] Alida Colmenares M.D. [address] [place] [phone] Ashanti Brice R.N. [address] [place] [phone] 10/26/2024 2:00 PM PRODUCTION OPERATIONS MANAGER Appointment Department of Cardiovascular Diseases in [place], [place] [address] [place] [address] Alida Colmenares M.D. [address] [place] [address] Discharge Disposition: Home or Self Care Health [...] 9:29 AM CDT Screening Cancer Colon PATHOLOGY PARTNERSHIP DEVELOPMENT MANAGER CYTOLOGY Routine 03/14/2016 4:59 PM CDT from Last 3 Months or Most Recently Relevant to Health Maintenance Results * BI Breast Screening Bilateral with Tomosynthesis (08/13/2024 8:02 AM CDT) Anatomical Region Laterality Modality Breast, Breast Imaging RST L OS, Breast Imaging ARZ LOS, Breast Imaging FLA LOS Bilateral Mammography Impressions 08/13/2024 10:26 AM CDT Negative. RECOMMENDATION: Annual Screening Mammogram ASSESSMENT: BI-RADS: 1: Negative. Narrative 08/13/2024 10:26 AM CDT EXAM: BI BREAST SCREENING BILATERAL WITH TOMOSYNTHESIS Current study was evaluated with a Computer Aided Detection (CAD) system. INDICATION: Screening mammogram. COMPARISON: Prior exam(s) were available and reviewed for comparison. DENSITY: c. The breast(s) are heterogeneously dense, which may obscure small masses. FINDINGS: No mammographic findings of malignancy. Procedure Note Golden [...] This test has been modified from the air and water filler's instructions. Its performance characteristics were determined by [facility] in a manner consistent with CLIA requirements. This test has not been cleared or approved by the U.S. Food and Drug Administration. Creatinine 72 mg/dL 08/12/2024 8:57 AM CDT DTL Albumin/Creatinine Ratio 26(H) <25 mg/g 08/12/2024 1:45 PM CDT DTL Urine (Urine, Midstream) 08/12/2024 7:47 AM CDT 08/12/2024 8:08 AM CDT Alida Colmenares M.D. LAB URINE ORDERABLES Final Re sult [facility] [address] [place] [address], [facility] [address] [place] [address] * Protein/Creatinine Ratio, Random, Urine (08/12/2024 7:47 [...] M.D. LAB URINE ORDERABLES Final Re sult [facility] [address] [place] [address], [facility] DTL [facility] [address] [place] [address] * Renal Function Panel (08/12/2024 7:41 AM [...] Colmenares M.D. LAB BLOOD ADD-ON Final Result [facility] [address] [place] [address], [facility] [address] [place] [address] * (ABNORMAL) Lipid Panel (08/12/2024 7:38 AM [...] BLOOD ADD-ON Final Result Performing Organization Address [facility] Co de Phone Number [facility] [address] [facility] 200 [place] [address] * Thyroid Function [place] (08/12/2024 7:38 AM CDT) TSH, Sensitive 2.4 0.3 - 4.2 mIU/L 08/13/2024 8:37 AM CDT DTL Blood 08/12/2024 7:38 AM CDT 08/13/2024 6:50 AM CDT us Soft Results Interface LAB BLOOD ADD-ON Final Re sult Performing Organization Address [facility] Co de Phone Number [facility] 200 [place] [address], [facility] [address] [place] [address] * Iron and Total Iron-Binding Capacity (08/12/2024 [...] ADD-ON Final Re sult Performing Organization Address [facility] Co de Phone Number [facility] [address] [place] [address], [facility] DTL [facility] [address] [place] [address] * 25-Hydroxyvitamin D2 and D3 (08/12/2024 7:38 AM CDT) 25-Hydroxy D2 <4.0 ng/mL 08/15/2024 11:25 AM PRODUCTION OPERATIONS MANAGER SDSC 25-Hydroxy D3 64 ng/mL 08/15/2024 11:25 AM PRODUCTION OPERATIONS MANAGER SDSC 25-Hydroxy D Total 64 ng/mL 2023 11:25 AM PRODUCTION OPERATIONS MANAGER SDS Comment: Interpretation: 51-80 ng/mL (increased risk of hypercalciuria) ----REFERENCE VALUE---- 25-HYDROXY D TOTAL (D2+D3) Optimum levels in the healthy population are 20-50. ----ADDITIONAL INFORMATION---- This test was developed and its performance characteristics determined by [facility] in a manner consistent with CLIA requirements. This test has not been cleared or approved by the U.S. Food and Drug Administration. Blood 08/12/2024 7:38 AM CDT 08/13/2024 9:05 AM CDT us Soft Results Interface LAB BLOOD ADD-ON Final Re sult Performing Organization Address [facility] Co de Phone Number [facility] [address] [place] [address] [facility] [address] [place] [address] [place] [address] * Magnesium (08/12/2024 7:38 AM CDT) Magnesium, S 2.0 1.7 - 2.3 mg/dL 08/13/2024 8:37 AM CDT DTL Blood 08/12/2024 7:38 AM CDT 08/13/2024 6:50 AM CDT us Soft Results Interface LAB BLOOD ADD-ON Final Re sult Performing Organization Address [facility]/ZIP Co de Phone Number [facility] [address] [place], [place] [address] [address] [place] [address] * Folate (08/12/2024 7:38 AM CDT) [facility] Folate, S 12.6 >=4.0 mcg/L 08/13/2024 11:28 AM CDT DTL Blood 08/12/2024 7:38 AM CDT 08/13/2024 6:50 AM CDT us Soft Results Interface LAB BLOOD ADD-ON Final Re sult Performing Organization Address City/[facility]/ZIP Co de Phone Number [facility] [address] [place], [place] [id number] [place] [address] 200 [place] [address] * Ferritin (08/12/2024 7:38 AM CDT) [facility] Ferritin, S 127 11 - 328 mcg/L 08/13/2024 8:37 AM CDT DT Blood 08/12/2024 7:38 AM CDT 08/13/2024 6:50 AM CDT us Soft Results Interface LAB BLOOD ADD-ON Final Re sult Performing Organization Address City/[facility]/ZIP Co de Phone Number [facility] [address] [place], [place] [address] [address] [place] [address] * Vitamin B12 Assay (08/12/2024 7:38 AM CDT) [facility] Vitamin B12 Assay, S [phone] [...] Interface LAB BLOOD ADD-ON Final Re sult [facility] [address] [place] [address], [place] [facility] [address] [place] [address] * Pathology PARTNERSHIP DEVELOPMENT MANAGER Cytology (03/14/2016 4:59 PM CDT) 03/14/2016 4:59 PM CDT 03/14/2016 4:59 PM CDT Narrative [facility] - 03/14/2016 4:59 PM CDT 03/14/2016 Cytology Gynecological ([id number]) Requested By:Rosalinda Lilly, CEDRICK [id number] DIAGNOSIS: A. ThinPrep Pap Test Screen (Cervical/Endocervical [...] 66, and 68. Report electronically signed by Emerson Xie SCT(ASCP) 03/19/2016 14:10 Interpreted by: ANTO Ro(ASCP) SPECIMEN DESCRIPTION: A. ThinPrep Pap Test Screen (Cervical/Endocervical HPV >= 30 years old): Received cloudy specimen in ThinPrep vial. Procedure Note 01/08/2018 03/14/2016 Cytology Gynecological ([id number]) Requested By:Rosalinda Lilly NP [id number] DIAGNOSIS: A. ThinPrep Pap Test Screen (Cervical/Endocervical [...] 66, and 68. Report electronically signed by Emerson Xie, SCT(ASCP) 03/19/2016 14:10 Interpreted by: Jenny Paredes, CT(ASCP) SPECIMEN DESCRIPTION: A. ThinPrep Pap Test Screen (Cervical/Endocervical HPV >= 30 years old): Received cloudy specimen in ThinPrep vial. us Rosalinda Lilly APRN C.NCarenPC[facility] LAB PAP COPATH ORDERA BLES Final Result [facility] [address] from Last 3 Months or Most Recently Relevant to Health Maintenance Insurance [employer] Advance Directives For more information, please contact: [phone] Documents on File Type Date Recorded Patient Press Clipper Expl anation Advance Directives 04/04/2015 12:00 AM Leg acy document. See document viewer. Care Teams Grain Elevator Motor Starter Relationship Specialty Start Date End Date Elsewhere, Pcp PCP - General Internal Medicine 12/18/21
--- OUTSIDE RECORDS SUMMARY | 2024-09-03 04:46 | XMS_ITS | Encounter Summary ---
Author Organization [facility] Address [address] [place] [address] Care Team Providers Care Office Services Coordinator Name Role Phone Elsewhere, Pcp Primary Care Provider Unavailabl e Reason for Visit * Reason Comments Immunizations * Appointment Request (Routine) - Closed Specialty Diagnoses / Procedures Referred By Contfranklin t Referred To Contact Family Medicine Referral ID Status Reason Start Date Expiration Date Visits Re quested Visits Authorized [id number] Closed 08/13/2024 08/13/2025 1 1 Encounter Details Date Type Department Care Team (Late Contact Info) Description 08/13/2024 9:00 AM CDT Immunization Section of Infectious Diseases in [place], [place] [address] [place] [phone] Freda Craft M.S.Doretha., R.N., C.M.S.R.N. [address] [place] [phone] Social History Tobacco Use Types Packs/Day Years Used Date Smoking Tobacco: Former Cigarettes Q uit: 10/13/1983 Smokeless Tobacco: Never Alcohol Use Standard Drinks/Week Comments Yes 1 (1 standard drink = 0.6 oz pur e alcohol) occasionally [facility] Utilities Answer Date Recorded In [...] How often do you attend chur or yarsani services? More than 4 times per year 01/08/2023 Do you belong to any clubs o r organizations such as worship groups, unions, fraternal or athletic groups, or [...] Answer Date Recorded PHQ-2 Score 1 05/03/2022 [facility] - Occupational Stress Questionnaire Answer Date [...] your living situation today? I have a [facility] place to live 08/08/2024 Education Answer Date Recorded What is the highest level of school you have completed or the highest degree you have received? Associate degree: occupational, technical, or vocational program 10/18/2019 Comments No Sex and Gender Information Value Date Recorded Sex Assigned at Female 07/06/2018 4:10 PM CDT Legal Sex Female 2:19 PM POLISHER EYEGLASS FRAMES Gender Identity Female 07/06/2018 4:10 PM CDT Sexual Orientation Straight 07/06/2018 4: 10 PM CDT documented as of this encounter Plan of Treatment Upcoming Encounters Date Type Department Care Team (Latest Contact Info) Description 09/03/2024 11:00 AM POLISHER EYEGLASS FRAMES Comprehensive Visit Division of Nephrology and Hypertension in [place], [place] [address] [place] [phone] Alida Colmenares M.D. [address] [place] [phone] Rowan Walden, RDN, LD [address] [place] [phone] 09/13/2024 8:30 AM POLISHER EYEGLASS FRAMES Nurse Only Division of Nephrology and Hypertension in [place], [place] [address] [place] [phone] Alida Colmenares M.D. [address] [place] [phone] Ashanti Brice R.N. [address] [place] [phone] 10/26/2024 2:00 PM POLISHER EYEGLASS FRAMES Appointment Department of Cardiovascular Diseases in [place], [place] [address] [place] [phone] Alida Colmenares M.D. [address] [place] [phone] Discharge Disposition: Home or Self Care documented as of this encounter Visit Diagnoses Not on filedocumented in this encounter Additional Health Concerns Assessment Noted Time PHQ-9 Depression Total Score: 7 05/03/20 22 10:25 AM CDT documented as of this encounter Care Teams Office Services Coordinator Relationship Specialty Start Date End Date Elsewhere, Pcp PCP - General Internal Medicine 12/18/21 documented as of this encounter
--- OUTSIDE RECORDS SUMMARY | 2024-09-03 04:46 | XMS_ITS | Encounter Summary ---
Author Organization [facility] Address [address] [place] [address] Care Team Providers Care Online Services Manager Name Role Phone Elsewhere, Pcp Primary Care Provider Unavailabl e Encounter Details Date Type Department Care Team (Latest Contact Info) Description 08/12/2024 7:00 AM CDT - 08/12/2024 7:09 AM CDT Hospital Encounter Department of Laboratory Medicine and Pathology, [facility] in [place], [place] [address] [place] [phone] Alida Colmenares M.D. [address] [place] [address] Polycystic Kidney Autosomal Dominant; Proteinuria Discharge Disposition: Home or Self Care Social History Tobacco Use Types Packs/Day Years Used Date Smoking Tobacco: Former Cigarettes Q uit: 10/13/1983 Smokeless Tobacco: Never Alcohol Use Standard Drinks/Week Comments Yes 1 (1 standard drink = 0.6 oz pur e alcohol) occasionally [facility] Utilities Answer Date Recorded In the past 12 months has e [employer], gas, oil, or water company threatened to [...] How often do you attend chur or scientology services? More than 4 times per year 01/08/2023 Do you belong to any clubs o r organizations such as zoroastrianism groups, unions, fraternal or athletic groups, or [...] Answer Date Recorded PHQ-2 Score 1 05/03/2022 [facility] of Occupat ional Health - Occupational Stress [...] your living situation today? I have a [facility] place to live 08/08/2024 Education Answer Date Recorded What is the highest level of school you have completed or the highest degree you have received? Associate degree: occupational, technical, or vocational program 10/18/2019 Comments No Sex and Gender Information Value Date Recorded Sex Assigned at Female 07/06/2018 4:10 PM CDT Legal Sex Female 2:19 PM MAGNETIC TAPE WINDER Gender Identity Female 07/06/2018 4:10 PM CDT Sexual Orientation Straight 07/06/2018 4: 10 PM CDT documented as of this encounter Medications at Time of Discharge hydroCHLOROthiaz cherie (HYDRODIURIL) 25 mg tablet take one tablet by mouth one time daily 90 tablet 2 03/15/2024 LANOLIN/MINERAL OIL/PETROLATUM (ARTIFICIAL TEARS OPHT) Administer 1 drop into both eyes as needed. 03/19/2013 omega 1-umg-lvp-fish oil 300 mg-100 mg- 150 mg-1,000 mg [...] (Latest Contact Info) Description 09/03/2024 11:00 AM MAGNETIC TAPE WINDER Comprehensive Visit Division of Nephrology and Hypertension in [place], [place] [address] [place] [phone] Alida Colmenares M.D. [address] [place] [phone] Rowan Walden, JORGE ALBERTO, LD [address] [place] [phone] 09/13/2024 8:30 AM MAGNETIC TAPE WINDER Nurse Only Division of Nephrology and Hypertension in [place], [place] [address] [place] [phone] Alida Colmenares M.D. [address] [place] [phone] Ashanti Brice R.N. [address] [place] [phone] 10/26/2024 2:00 PM MAGNETIC TAPE WINDER Appointment Department of Cardiovascular Diseases in [place], [place] [address] [place] [phone] Alida Colmenares M.D. [address] [place] [phone] Discharge Disposition: Home or Self Care documented [...] Colmenares M.D. LAB BLOOD ADD-ON Final Result [facility] [address] [place] [address], [place] DTL [facility] [address] [place] [address] documented in this encounter Visit Diagnoses Diagnosis Polycystic Kidney Autosomal Dominant Proteinuria documented in this encounter Additional Health Concerns Assessment Noted Time PHQ-9 Depression Total Score: 7 05/03/20 22 10:25 AM CDT documented as of this encounter Care Teams Online Services Manager Relationship Specialty Start Date End Date Elsewhere, Pcp PCP - General Internal Medicine 12/18/21 documented as of this encounter
--- OUTSIDE RECORDS SUMMARY | 2024-09-03 04:46 | XMS_ITS | Encounter Summary ---
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 200 [place] [address] Phone: tel: fax: [facility] Referral ID Status Reason Start Date Expiration Date V isits Requested Visits Authorized [id number] Authorized 08/12/2024 02/11/2026 1 1 Scheduling Instructions This appointment should ideally be scheduled AFTER the Roving Carrier Consults, but must at least be scheduled 48 hours after 24-hour urine collection is complete. Virtual visit is acceptable for this dietitian visit. * Outpatient (Routine) - Authorized Specialty Diagnoses / Procedures Referred By Irma torrez Referred To Contact Nephrology and Hypertension Alida Colmenares M.D. 200 [place] [address] Phone: tel: fax: [facility] Referral ID Status Reason Start Date Expiration Date V isits Requested Visits Authorized [id number] Authorized 08/12/2024 02/11/2026 1 1 * Cardiovascular-Diagnostic (Routine) - Authorized Specialty Diagnoses / Procedures Referred By Irma torrez Referred To Contact Diagnoses Polycystic Kidney Autosomal Dominant Chronic Kidney Disease Stage 2 Glomerular Filtration Rate 60 To 89 Proteinuria Procedures Echo Transthoracic (TTE) Alida Colmenares M.D. [address] [place] [phone] Phone: tel: fax: [facility] Referral ID Status Reason Start Date Expiration Date V isits Requested Visits Authorized [id number] Authorized 08/12/2024 08/12/2025 1 1 * Outpatient (Routine) - Authorized Specialty Diagnoses / Procedures Referred By Irma torrez Referred To Contact Nephrology and Hypertension Alida Colmenares M.D. 200 [place] [address] Phone: tel: fax: [facility] Referral ID Status Reason Start Date Expiration Date V isits Requested Visits Authorized [id number] Authorized 08/12/2024 02/11/2026 1 1 Reason for Visit * Reason Comments Hypertension * Outpatient (Routine) - Closed Specialty Diagnoses / Procedures Referred By Irma torrez Referred To Contact Nephrology and Hypertension Alida Colmenares M.D. 200 [place] [address] Phone: tel: fax: [facility] Referral ID Status Reason Start Date Expiration Date Visits Re quested Visits Authorized [id number] Closed 07/11/2023 07/10/2026 1 1 Encounter Details Date Type Department Care Team (Latest Contact Info) Description 08/12/2024 3:15 PM CDT Office Visit Division of Nephrology and Hypertension in [place], [place] [address] [place] [phone] Alida Colmenares M.D. [address] [place] [address] Polycystic Kidney Autosomal Dominant (Primary Dx); Chronic Kidney Disease Stage 2 Glomerular Filtration Rate 60 To 89; Proteinuria; Iron Deficiency Anemia Screening Exam; Paresthesias Hand; Paresthesias Feet Social History Tobacco Use Types Packs/Day Years Used Date Smoking Tobacco: Former Cigarettes Q uit: 10/13/1983 Smokeless Tobacco: Never Alcohol Use Standard Drinks/Week Comments Yes 1 (1 standard drink = 0.6 oz pur e alcohol) occasionally [facility] Utilities Answer Date Recorded In the past 12 months has e [employer], gas, oil, or water [employer] threatened to shut off services in your [...] often do you attend chur ch or methodist services? More than 4 times per year 01/08/2023 Do you belong to any clubs o r organizations such as buddhist groups, unions, fraternal or athletic groups, or [...] [facility] of Occupat ional [facility] - Occupational Stress Questionnaire Answer Date [...] PM CDT Legal Sex Female 2:19 PM AGRISCIENCE INSTRUCTOR Gender Identity Female 07/06/2018 4:10 PM CDT [...] Thank you for seeing us in the [facility] Nephrology and Hypertension Clinic. You were seen [...] and send us periodic readings via the [facility]. Our goal blood pressure [...] TKV is 868 cc, placing her at [facility][1] Class 1B. Brain MRI was negative for aneurysms. Her BP continues to be high in the 130-140s/70-80s with only some occasional readings in the 120s. She does have some tingling in her bilateral hands and feed for the last 1-2 months and she feels her blankets are quite heavy. Her sciatica is better overall. She works at a [employer] and denies any exposure to any toxic [...] capsule by mouth once a week. omega 4-gen-cby-fish oil 300 mg-100 mg- 150 mg-1,000 mg [...] personally reviewed all pertinent laboratories available in [facility], including the following: Recent Labs 08/12/24 0741 NA 138 KSERUM 3.6 BICARB 28 BUN 17 CREATININE 0.91 EGFR 74 CALCIUM 9.9 LABPHOS 3.4 No results for input(s): LABIRON, FERRITIN in the last 8760 hours. No results for input(s): UADMSRC3, UADMAPP4, CLARITYU, COLORU, OSMOLALITYU, PHURINE, GLUCOSEU, BNCX11NDCNZP, BLOODUR, MICROSCOPIC, RBCU, DYSMORHRBCU, WBCU, GRAMSTNCONFU, NITRITEU, [...] following: #1 Polycystic Kidney Autosomal Dominant Screening [facility] Class 1B based on TKV. No [...] and report readings to us via the [facility]. #4 Iron Deficiency Anemia Screening [...] me with labs prior. Alida Colmenares M.D. Perianesthesia Nurse Hvac Tech Nephrology and Hypertension [facility] documented in this encounter Plan of Treatment Upcoming Encounters Date Type Department Care Team (Latest Contact Info) Description 09/03/2024 11:00 AM AGRISCIENCE INSTRUCTOR Comprehensive Visit Division of Nephrology and Hypertension in [place], [place] [address] [place] [address] Alida Colmenares M.D. [address] [place] [phone] Rowan Walden, RDN, LD [address] [place] [address] 09/13/2024 8:30 AM AGRISCIENCE INSTRUCTOR Nurse Only Division of Nephrology and Hypertension in [place], [place] [address] [place] [phone] Alida Colmenares M.D. [address] [place] [phone] Ashanti Brice R.N. [address] [place] [phone] 10/26/2024 2:00 PM AGRISCIENCE INSTRUCTOR Appointment Department of Cardiovascular Diseases in [place], [place] 200 [place] [address] Alida Colmenares M.D. 200 [place] [phone] Discharge Disposition: Home or Self Care Scheduled [...] Lipid Panel (08/12/2024 7:38 AM CDT) Pathologist [facility] Triglycerides 75 mg/dL 08/13/2024 8:37 AM CDT [...] Colmenares M.D. LAB BLOOD ADD-ON Final Result [facility] - [address] [address], [facility] [address] documented in this encounter Visit Diagnoses Diagnosis Polycystic Kidney Autosomal Dominant- Primary Chronic Kidney Disease Stage 2 Glomerular Filtration Rate 60 To 89 Proteinuria Iron Deficiency Anemia Screening Exam Paresthesias Hand Paresthesias Feet documented in this encounter Additional Health Concerns Assessment Noted Time PHQ-9 Depression Total Score: 7 05/03/20 10:25 AM CDT documented as of this encounter Care Teams Political Advisor Relationship Specialty Start Date End Date Elsewhere, Pcp PCP - General Internal Medicine 12/18/21 documented as of this encounter
--- OUTSIDE RECORDS SUMMARY | 2024-09-03 04:46 | XMS_ITS | Encounter Summary ---
Author Organization [facility] Address [address] [place] [address] Care Team Providers Care Surface Lay Out Technician Name Role Phone Elsewhere, Pcp Primary Care Provider Unavailabl e Encounter Details Date Type Department Care Team (Late st Contact Info) Description 08/12/2024 3:45 PM CDT Lab [facility] [address] [place] [phone] Alida Colmenares M.D. [address] [place] [phone] Polycystic Kidney Autosomal Dominant; Chronic Kidney Disease Stage 2 Glomerular Filtration Rate 60 To 89; Proteinuria Social History Tobacco Use Types Packs/Day Years Used Date Smoking Tobacco: Former Cigarettes Q uit: 10/13/1983 Smokeless Tobacco: Never Alcohol Use Standard Drinks/Week Comments Yes 1 (1 standard drink = 0.6 oz pur e alcohol) occasionally [facility] Utilities Answer Date Recorded In the past 12 months has e [employer], gas, oil, or water [employer] threatened to shut off services in your [...] any clubs o r organizations such as evangelical groups, unions, fraternal or athletic groups, or [...] Answer Date Recorded PHQ-2 Score 1 05/03/2022 [facility] [place] of Occupat ional Health - Occupational Stress [...] your living situation today? I have a [facility] place to live 08/08/2024 Education Answer Date Recorded What is the highest level of school you have completed or the highest degree you have received? Associate degree: occupational, technical, or vocational program 10/18/2019 Comments No Sex and Gender Information Value Date Recorded Sex Assigned at Female 07/06/2018 4:10 PM CDT Legal Sex Female 2:19 PM DIRECT MARKETING COORDINATOR Gender Identity Female 07/06/2018 4:10 PM CDT Sexual Orientation Straight 07/06/2018 4: 10 PM CDT documented as of this encounter Plan of Treatment Upcoming Encounters Date Type Department Care Team (Latest Contact Info) Description 09/03/2024 11:00 AM DIRECT MARKETING COORDINATOR Comprehensive Visit Division of Nephrology and Hypertension in [place], [place] [address] [place] [address] Alida Colmenares M.D. [address] [place] [address] Rowan Walden, RDN, LD [address] [place] [phone] 09/13/2024 8:30 AM DIRECT MARKETING COORDINATOR Nurse Only Division of Nephrology and Hypertension in [place], [place] [address] [place] [address] Alida Colmenares M.D. [address] [place] [phone] Ashanti Brice R.N. [address] [place] [phone] 10/26/2024 2:00 PM DIRECT MARKETING COORDINATOR Appointment Department of Cardiovascular Diseases in [place], [place] [address] [place] [phone] Alida Colmenares M.D. [address] [place] [phone] Discharge Disposition: Home or Self Care documented [...] LAB BLOOD ADD-ON Final Re sult [facility] [address] [place] [address], [facility] 200 [place] [address] * Folate (08/12/2024 7:38 AM CDT) Pathologist [facility] Folate, S 12.6 >=4.0 mcg/L 08/13/2024 11:28 AM CDT DTL Blood 08/12/2024 7:38 AM CDT 08/13/2024 6:50 AM CDT us Soft Results Interface LAB BLOOD ADD-ON Final Re sult [facility] [address] [place] [address], [facility] [address] [place] [address] * Ferritin (08/12/2024 7:38 AM CDT) Ferritin, S 127 11 - 328 mcg/L 08/13/2024 8:37 AM CDT DTL Blood 08/12/2024 7:38 AM CDT 08/13/2024 6:50 AM CDT us Soft Results Interface LAB BLOOD ADD-ON Final Re sult Performing Organization Address City/[facility] Co de Phone Number [facility] [address] [place] [address] * Thyroid Function Will (08/12/2024 7:38 AM CDT) TSH, Sensitive 2.4 0.3 - 4.2 mIU/L 08/13/2024 8:37 AM CDT DTL Blood 08/12/2024 7:38 AM CDT 08/13/2024 6:50 AM CDT us Soft Results Interface LAB BLOOD ADD-ON Final Re sult Performing Organization Address [facility] de Phone Number [facility] 200 [place], [place] [phone] [place] [address] 200 [place] [address] * 25-Hydroxyvitamin D2 and D3 (08/12/2024 7:38 AM CDT) 25-Hydroxy D2 <4.0 ng/mL 08/15/2024 11:25 AM DIRECT MARKETING COORDINATOR [facility] 25-Hydroxy D3 64 ng/mL 08/15/2024 11:25 AM DIRECT MARKETING COORDINATOR [facility] 25-Hydroxy D Total 64 ng/mL 2023 11:25 AM DIRECT MARKETING COORDINATOR [facility] Comment: Interpretation: 51-80 ng/mL (increased risk of hypercalciuria) ----REFERENCE VALUE---- 25-HYDROXY D TOTAL (D2+D3) Optimum levels in the healthy population are 20-50. ----ADDITIONAL INFORMATION---- This test was developed and its performance characteristics determined by [facility] in a manner consistent with CLIA requirements. This test has not been cleared or approved by the U.S. Food and Drug Administration. Blood 08/12/2024 7:38 AM CDT 08/13/2024 9:05 AM CDT us Soft Results Interface LAB BLOOD ADD-ON Final Re sult [facility] [address] [place] [address] [facility] [address] [place] [address] [place] [address] * Magnesium (08/12/2024 7:38 AM CDT) Pathologist [facility] Magnesium, S 2.0 1.7 - 2.3 mg/dL 08/13/2024 8:37 AM CDT DTL Blood 08/12/2024 7:38 AM CDT 08/13/2024 6:50 AM CDT us Soft Results Interface LAB BLOOD ADD-ON Final Re sult Performing Organization Address [facility] de Phone Number [facility] [address] [place], [place] [phone] [place] [address] [facility]Department [facility] [address] [place] [address] * Vitamin B12 Assay (08/12/2024 7:38 AM CDT) [facility] Vitamin B12 Assay, S 277 180 [...] ADD-ON Final Re sult Performing Organization Address [facility]/ZIP Co de Phone Number [facility] [address] [place] [address], [facility] DTL [facility] [address] [place] [address] * (ABNORMAL) Lipid Panel (08/12/2024 7:38 AM [...] Colmenares M.D. 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
--- OUTSIDE RECORDS SUMMARY | 2024-09-03 04:46 | XMS_ITS | Referral Summary ---
Author Organization [facility] Address [address] [place] [address] Care Team Providers Care Obstetrical Tech Name Role Phone Elsewhere, Pcp Primary Care Provider Unavailabl e Source Comments Patient records contain information from all sites at [facility]. For routine questions regarding patient records, call [phone] during business hours, M-F 8:00 AM - 5:00 PM Central Time. Record requests for emergency care only can be directed to [phone] at any time.[facility] Encounters Date Type Department Care Team Description 09/01/2024 Patient Outreach Division of Nephrology and Hypertension in [place], [place] [address] [place] [phone] Esme Mcgee, R.N. 08/13/2024 9:00 AM CDT Immunization Section of Infectious Diseases in [place], [place] [address] [place] [phone] Freda Craft M.S.N., R.N., C.M.S.R.N. 08/13/2024 7:25 AM CDT - 08/13/2024 11:59 PM CDT Hospital Encounter Department of Radiology in [place], [place] [address] [place] [phone] Sonia Levine M.D. Screening Mammogram Breast Cancer Discharge Disposition: Home or Self Care 08/12/2024 3:45 PM CDT Lab RST RO LMP [address] [place] [phone] Alida Colmenares M.D. Polycystic Kidney Autosomal Dominant; Chronic Kidney Disease Stage 2 Glomerular Filtration Rate 60 To 89; Proteinuria 08/12/2024 3:15 PM CDT Office Visit Division of Nephrology and Hypertension in [place], [place] [address] [place] [phone] Alida Colmenares M.D. Polycystic Kidney Autosomal Dominant (Primary Dx); Chronic Kidney Disease Stage 2 Glomerular Filtration Rate 60 To 89; Proteinuria; Iron Deficiency Anemia Screening Exam; Paresthesias Hand; Paresthesias Feet 08/12/2024 7:10 AM CDT - 08/12/2024 11:59 PM CDT Hospital Encounter Department of Laboratory Medicine and Pathology, [place], [place] [address] [place] [phone] Alida Colmenares M.D. Polycystic Kidney Autosomal Dominant; Proteinuria Discharge Disposition: Home or Self Care 08/12/2024 7:00 AM CDT - 08/12/2024 7:09 AM CDT Hospital Encounter Department of Laboratory Medicine and Pathology, [place], [place] [address] [place] [address] Alida Colmenares M.D. Polycystic Kidney Autosomal Dominant; Proteinuria Discharge Disposition: Home or Self Care 07/09/2024 Refill Division of Nephrology and Hypertension in [place], [place] [address] [place] [phone] Alida Colmenares M.D. Med Refill from Last 3 Months Allergies Active Allergy Reactions Criticality Noted Date Comments Irbesartan Palpitations Medium 07/19/2016 Lisinopril Rash Medium 07/19/2016 Medications * This document contains information received from the source organization and may not represent a complete record from that organization. LANOLIN/AUTO GLASS INSTALLER AL OIL/PETROLATU M (ARTIFICIAL TEARS OPHT) Administer 1 drop into both eyes as needed. 013 Active valACYclovir (VALTREX) 1000 mg tablet Take 2,000 mg by mouth 2 (two) times a day. Not taking right now 022 Active traZODone (DESYREL) 12.5 mg tablet Take 50 mg by mouth as needed. Active hydroCHLOROth iazide (HYDRODIURIL) 25 mg tablet take one tablet by mouth one time daily 90 tablet 2 Active cholecalcifer ol (Vitamin D3) 125 mcg (5,000 Unit) capsule Take 125 mcg by mouth daily. Active omega 8-pgb-kff-fis h oil 300 mg-100 mg- 150 mg-1,000 [...] tablet 3 Active multivit,stre ss formula-zinc (b uvpzswz-H-J-z inc) tablet Take 1 tablet by mouth [...] = 0.6 oz pur e alcohol) occasionally [facility] Utilities Answer Date Recorded In the past 12 months has e [employer], oil, or water [employer]-social threatened to shut off services in your [...] How often do you attend chur or moravian services? More than 4 times per year 01/08/2023 Do you belong to any clubs o r organizations such as cheondoism groups, unions, fraternal or athletic groups, or [...] Answer Date Recorded PHQ-2 Score 1 05/03/2022 [facility] of Occupat ional Health - [...] your living situation today? I have a [facility] place to live 08/08/2024 Education Answer Date Recorded What is the highest level of school you have completed or the highest degree you have received? Associate degree: occupational, technical, or vocational program 10/18/2019 Comments No Sex and Gender Information Value Date Recorded Sex Assigned at Female 07/06/2018 4:10 PM CDT Legal Sex Female 2:19 PM INTEGRITY DIRECTOR Gender Identity Female 07/06/2018 4:10 PM CDT [...] (Latest Contact Info) Description 09/03/2024 11:00 AM INTEGRITY DIRECTOR Comprehensive Visit Division of Nephrology and Hypertension in [place], [place] 200 [place] [phone] Alida Colmenares M.D. 200 [place] [phone] Rowan Walden, JORGE ALBERTO, LD 200 [place] [phone] 09/13/2024 8:30 AM INTEGRITY DIRECTOR Nurse Only Division of Nephrology and Hypertension in [place], [place] 200 [place] [phone] Alida Colmenares M.D. [address] [place] [phone] Ashanti Brice R.N. [address] [place] [phone] 10/26/2024 2:00 PM INTEGRITY DIRECTOR Appointment Department of Cardiovascular Diseases in [place], [place] [address] [place] [phone] Alida Colmenares M.D. [address] [place] [phone] Discharge Disposition: Home or Self Care Procedures [...] 9:29 AM CDT Screening Cancer Colon PATHOLOGY [facility] CYTOLOGY Routine 03/14/2016 4:59 PM CDT from [...] Annual Screening Mammogram ASSESSMENT: BI-RADS: 1: Negative. us Sonia Levine M.D. IMG BI PROCEDURES Final Result * (ABNORMAL) Albumin, Random, Urine (08/12/2024 7:47 AM CDT) Albumin, Random, U 18.4 mg/L 2023 1:45 PM CDT DTL Comment: ----ADDITIONAL INFORMATION---- This test has been modified from the slot machine department floorperson's instructions. Its performance characteristics were determined by [facility] in a manner consistent with CLIA [...] ORDERABLES Final Re sult Performing Organization Address City/[facility]/[place] [address], [facility] [address] [address] * Protein/Creatinine Ratio, Random, Urine (08/12/2024 7:47 [...] M.D. LAB URINE ORDERABLES Final Re sult [facility] [address] [place] [address], [facility] DTL [facility] [address] [place] [address] * Renal Function Panel (08/12/2024 7:41 AM [...] Colmenares M.D. LAB BLOOD ADD-ON Final Result [facility] [address] [place] [address], [facility] DTL [facility] [address] [place] [address] * (ABNORMAL) Lipid Panel (08/12/2024 7:38 AM [...] 7:38 AM CDT 08/13/2024 6:50 AM CDT Alida Colmenares M.D. LAB BLOOD ADD-ON Final Result [facility] 200 [place] [address], [facility] 200 [place] [address] * Thyroid Function Esmeralda (08/12/2024 7:38 AM CDT) TSH, Sensitive 2.4 0.3 - 4.2 mIU/L 08/13/2024 8:37 AM CDT DTL Blood 08/12/2024 7:38 AM CDT 08/13/2024 6:50 AM CDT us Soft Results Interface LAB BLOOD ADD-ON Final Re sult Performing Organization Address [facility] Co de Phone Number [facility] [address] [place] [address], [facility] 200 [place] [address] * Iron and Total Iron-Binding Capacity (08/12/2024 [...] ADD-ON Final Re sult Performing Organization Address City/[facility]/ZIP Co de Phone Number [facility] [address] [place] [address], [facility] 200 [place] [address] * 25-Hydroxyvitamin D2 and D3 (08/12/2024 7:38 AM CDT) 25-Hydroxy D2 <4.0 ng/mL 08/15/2024 11:25 AM INTEGRITY DIRECTOR SDSC 25-Hydroxy D3 64 ng/mL 08/15/2024 11:25 AM INTEGRITY DIRECTOR SDSC 25-Hydroxy D Total 64 ng/mL 2023 11:25 AM INTEGRITY DIRECTOR [facility] Comment: Interpretation: 51-80 ng/mL (increased risk of hypercalciuria) ----REFERENCE VALUE---- 25-HYDROXY D TOTAL (D2+D3) Optimum levels in the healthy population are 20-50. ----ADDITIONAL INFORMATION---- This test was developed and its performance characteristics determined by [facility] in a manner consistent with CLIA requirements. This test has not been cleared or approved by the U.S. Food and Drug Administration. Blood 08/12/2024 7:38 AM CDT 08/13/2024 9:05 AM CDT us Soft Results Interface LAB BLOOD ADD-ON Final Re sult Performing Organization Address [facility] Co de Phone Number [facility] [address] [place] [address] [facility] [address] [place] [address] [place] [address] * Magnesium (08/12/2024 7:38 AM CDT) Magnesium, S 2.0 1.7 - 2.3 mg/dL 08/13/2024 8:37 AM CDT DTL Blood 08/12/2024 7:38 AM CDT 08/13/2024 6:50 AM CDT us Soft Results Interface LAB BLOOD ADD-ON Final Re sult Performing Organization Address City/[facility]/ZIP Co de Phone Number [facility] [address] [place] [address], [facility] DTL [facility] [address] [place] [address] * Folate (08/12/2024 7:38 AM CDT) Folate, S 12.6 >=4.0 mcg/L 08/13/2024 11:28 AM CDT DTL Blood 08/12/2024 7:38 AM CDT 08/13/2024 6:50 AM CDT us Soft Results Interface LAB BLOOD ADD-ON Final Re sult Performing Organization Address City/[facility]/ZIP Co de Phone Number [facility] [address] [place], [place] [phone] [place] [address] [facility] [address] [place] [phone] * Ferritin (08/12/2024 7:38 AM CDT) Ferritin, S 127 11 - 328 mcg/L 08/13/2024 8:37 AM CDT DTL Blood 08/12/2024 7:38 AM CDT 08/13/2024 6:50 AM CDT us Soft Results Interface LAB BLOOD ADD-ON Final Re sult Performing Organization Address [facility] de Phone Number [facility] [address] [place] [address], [facility] 200 [place] [address] * Vitamin B12 Assay (08/12/2024 7:38 AM CDT) Pathologist [facility] Vitamin B12 Assay, S [phone] - [...] ADD-ON Final Re sult Performing Organization Address City/[facility] Co de Phone Number [facility] [address] [place] [address], [facility] [address] [place] [phone] * Pathology [facility] Cytology (03/14/2016 4:59 PM CDT) 03/14/2016 4:59 PM CDT 03/14/2016 4:59 PM CDT [facility] - 03/14/2016 4:59 PM CDT 03/14/2016 Cytology Gynecological ([id number]) Requested By:Rosalinda Lilly NP [id number] DIAGNOSIS: A. ThinPrep Pap Test Screen (Cervical/Endocervical [...] vial. Procedure Note 01/08/2018 03/14/2016 Cytology Gynecological ([id number]) Requested By:Rosalinda Lilly NP [id number] DIAGNOSIS: A. ThinPrep Pap Test Screen (Cervical/Endocervical [...] specimen in ThinPrep vial. us Rosalinda Lilly APRN, C.N.P. LAB PAP COPATH ORDERA BLES Final Result [facility] [address] [place], [place] [address]RUST from Last 3 Months or Most Recently Relevant to Health Maintenance Insurance [employer] Advance Directives For more information, please contact: [phone] Documents on File Type Date Recorded Patient Director Of It Operations Expl anation Advance Directives 04/04/2015 12:00 AM Leg acy document. See document viewer. Care Teams Obstetrical Tech Relationship Specialty Start Date End Date Elsewhere, Pcp PCP - General Internal Medicine 12/18/21
--- OUTSIDE RECORDS SUMMARY | 2024-09-03 04:46 | XMS_ITS ---
Author Organization [facility] Address [address] [place] [address] Care Team Providers Care Mobile Application Architect Name Role Phone Unavailable Unavailable Unavailable Surgery Details Not on file Complications Check Surgery Details section. Procedure Estimated Blood Loss Check Surgery Details section. Procedure Findings Check Surgery Details section. Procedure Specimens Taken Check Surgery Details section.
--- OUTSIDE RECORDS SUMMARY | 2024-09-03 04:46 | XMS_ITS | Encounter Summary ---
Author Organization [facility] Address [address] [place] [address] Care Team Providers Care Boring Mill Operator For Metal Name Role Phone Elsewhere, Pcp Primary Care Provider Unavailabl e Reason for Referral * Outpatient (Routine) - Closed Specialty Diagnoses / Procedures Referred By Contfranklin t Referred To Contact Diagnoses Screening Mammogram Breast Cancer Procedures BI Breast Screening Bilateral with Tomosynthesis Sonia Levine M.D. 200 [place] [address] Phone: tel: fax: [facility] Referral ID Status Reason Start Date Expiration Date Visits Re quested Visits Authorized [id number] Closed 08/08/2024 08/08/2025 1 1 * Outpatient (Routine) - Closed Specialty Diagnoses / Procedures Referred By Irma torrez Referred To Contact Diagnoses Screening Mammogram Breast Cancer Procedures BI Breast Screening Bilateral with Tomosynthesis Sonia Levine M.D. 200 [place] [address] Phone: tel: fax: [facility] Referral ID Status Reason Start Date Expiration Date Visits Re quested Visits Authorized [id number] Closed 08/08/2024 08/08/2025 1 1 Reason for Visit * Outpatient (Routine) - Closed Specialty Diagnoses / Procedures Referred By Irma torrez Referred To Contact Diagnoses Screening Mammogram Breast Cancer Procedures BI Breast Screening Bilateral with Tomosynthesis Sonia Levine M.D. [address] [place] [address] Phone: tel: fax: [facility] Referral ID Status Reason Start Date Expiration Date Visits Re quested Visits Authorized [id number] Closed 08/08/2024 08/08/2025 1 1 Encounter Details Date Type Department Care Team (Late st Contact Info) Description 08/13/2024 7:25 AM CDT - 08/13/2024 11:59 PM CDT Hospital Encounter Department of Radiology in [place], [place] [address] [place] [address] Sonia Levine M.D. [address] [place] [address] Screening Mammogram Breast Cancer Discharge Disposition: Home or Self Care Social History Tobacco Use Types Packs/Day Years Used Date Smoking Tobacco: Former Cigarettes Q uit: 10/13/1983 Smokeless Tobacco: Never Alcohol Use Standard Drinks/Week Comments Yes 1 (1 standard drink = 0.6 oz pur e alcohol) occasionally [facility] Utilities Answer Date Recorded In the past [address] [facility] [place], gas, oil, or water [employer] threatened to shut off services in your [...] often do you attend chur ch or jain services? More than 4 times per year 01/08/2023 Do you belong to any clubs o r organizations such as voodoo groups, unions, fraternal or athletic groups, or [...] Answer Date Recorded PHQ-2 Score 1 05/03/2022 [facility] of Occupat ionil Health - Occupational Stress Questionnaire Answer Date [...] your living situation today? [facility] have a [facility] place to live 08/08/2024 Education Answer Date Recorded What is the highest level of school you have completed or the highest degree you have received? Associate degree: occupational, technical, or vocational program 10/18/2019 Comments No Sex and Gender Information Value Date Recorded Sex Assigned at Female 07/06/2018 4:10 PM CDT Legal Sex Female 2:19 PM FISH BUTCHER Gender Identity Female 07/06/2018 4:10 PM CDT [...] capsule by mouth once a week. omega 3-ycn-hck-fish oil 300 mg-100 mg- 150 mg-1,000 mg [...] (Latest Contact Info) Description 09/03/2024 11:00 AM FISH BUTCHER Comprehensive Visit Division of Nephrology and Hypertension in [place], [place] [address] [place] [phone] Alida Colmenares M.D. [address] [place] [phone] Rowan Waledn, RDN, LD [address] [place] [phone] 09/13/2024 8:30 AM FISH BUTCHER Nurse Only Division of Nephrology and Hypertension in [place], [place] [address] [place] [phone] Alida Colmenares M.D. [address] [place] [phone] Ashanti Brice R.N. [address] [place] [phone] 10/26/2024 2:00 PM FISH BUTCHER Appointment Department of Cardiovascular Diseases in [place], [place] [address] [place] [phone] Alida Colmenares M.D. [address] [place] [address] Discharge Disposition: Home or Self Care documented [...] Levine M.D. IMG BI PROCEDURES Final Result documented in this encounter Visit Diagnoses Diagnosis Screening Mammogram Breast Cancer documented in this encounter Additional Health Concerns Assessment Noted Time PHQ-9 Depression Total Score: 7 07/22/20 22 10:25 AM CDT documented as of this encounter Care Teams Boring Mill Operator For Metal Relationship Specialty Start Date End Date Elsewhere, Pcp PCP - General Internal Medicine 12/18/21 documented as of this encounter
--- OUTSIDE RECORDS SUMMARY | 2024-09-03 04:47 | XMS_ITS ---
Author Organization [facility] Address [address] [place] [address] Care Team Providers Care Weigher And Grader Name Role Phone Elsewhere, Pcp Primary Care Provider Unavailabl e Polycystic Kidney Disease (PKD) Status:Enrolled (Active) Start date:08/12/2024 Enrollment date:08/20/2024 Continued Care and Services Coordination
--- OUTSIDE RECORDS SUMMARY | 2024-09-03 04:47 | XMS_ITS | Encounter Summary ---
Author Organization [facility] Address [address] [place] [address] Care Team Providers Care Band Machine Operator Name Role Phone Elsewhere, Pcp Primary Care Provider Unavailabl e Reason for Visit * Reason Comments Med Refill Encounter Details Date Type Department Care Team (Late st Contact Info) Description 07/09/2024 Refill Division of Nephrology and Hypertension in [place], [place] [address] [place] [address] Alida Colmenares M.D. [address] [place] [phone] Med Refill Social History Tobacco Use Types [...] How often do you attend chur or jainism services? More than 4 times per year [...] Answer Date Recorded PHQ-2 Score 1 05/03/2022 [facility] of Occupat ional Health - Occupational [...] PM CDT Legal Sex Female 2:19 PM LICENSED PROSTHETIST/ORTHOTIST Gender Identity Female 07/06/2018 4:10 PM CDT Sexual Orientation Straight 07/06/2018 4: 10 PM CDT documented as of this encounter Plan of Treatment Upcoming Encounters Date Type Department Care Team (Latest Contact Info) Description 09/03/2024 11:00 AM LICENSED PROSTHETIST/ORTHOTIST Comprehensive Visit Division of Nephrology and Hypertension in [place], [place] [address] [place] [phone] Alida Colmenares M.D. [address] [place] [phone] Rowan Walden, RDN, LD [address] [place] [phone] 09/13/2024 8:30 AM LICENSED PROSTHETIST/ORTHOTIST Nurse Only Division of Nephrology and Hypertension in [place], [place] [address] [place] [phone] Alida Colmenares M.D. [address] [place] [phone] Ashanti Brice R.N. [address] [place] [phone] 10/26/2024 2:00 PM LICENSED PROSTHETIST/ORTHOTIST Appointment Department of Cardiovascular Diseases in [place], [place] [address] [place] [phone] Alida Colmenares M.D. [address] [place] [phone] Discharge Disposition: Home or Self Care documented as of this encounter Visit Diagnoses Not on filedocumented in this encounter Additional Health Concerns Assessment Noted Time PHQ-9 Depression Total Score: 7 05/03/20 22 10:25 AM CDT documented as of this encounter Care Teams Band Machine Operator Relationship Specialty Start Date End Date Elsewhere, Pcp PCP - General Internal Medicine 12/18/21 documented as of this encounter
--- OUTSIDE RECORDS SUMMARY | 2024-09-03 04:47 | XMS_ITS | Encounter Summary ---
Author Organization [facility] Address [address] [place] [address] Care Team Providers Care Veterinary Surgery Technologist Name Role Phone Elsewhere, Pcp Primary Care Provider Unavailabl e Encounter Details Date Type Department Care Team (Late st Contact Info) Description 02/02/2016 Historical Ophthalmology [facility] Tyler Smith Jr., M.D. [address], [place] [phone] Social History Tobacco Use Types Packs/Day Years Used Date Smoking Tobacco: Never Assessed Comments Unknown Sex and Gender Information Value Date Recorded Sex Assigned at Female 07/06/2018 4:10 PM CDT Legal Sex Female 2:19 PM TELECOM ASSISTANT Gender Identity Female 07/06/2018 4:10 PM CDT [...] #2 Presbyopia CDM Reports - EYEGEN Id: [id number] Status: Fnl documented in this encounter Plan of Treatment Upcoming Encounters Date Type Department Care Team (Latest Contact Info) Description 09/03/2024 11:00 AM TELECOM ASSISTANT Comprehensive Visit Division of Nephrology and Hypertension in [place], [place] [address] [place] [phone] Alida Colmenares M.D. [address] [place] [phone] Rowan Walden, MAGDALENAN, LD [address] [place] [phone] 09/13/2024 8:30 AM TELECOM ASSISTANT Nurse Only Division of Nephrology and Hypertension in [place], [place] [address] [place] [phone] Alida Colmenares M.D. [address] [place] [phone] Ashanti Brice R.N. [address] [place] [phone] 10/26/2024 2:00 PM TELECOM ASSISTANT Appointment Department of Cardiovascular Diseases in [place], [place] [address] [place] [phone] Alida Colmenares M.D. [address] [place] [phone] Discharge Disposition: Home or Self Care documented as of this encounter Visit Diagnoses Not on filedocumented in this encounter Additional Health Concerns Assessment Noted Time PHQ-9 Depression Total Score: 0 10/15/19 14 12:16 PM TELECOM ASSISTANT documented as of this encounter Care Teams Veterinary Surgery Technologist Relationship Specialty Start Date End Date Elsewhere, Pcp PCP - General Internal Medicine 12/18/21 documented as of this encounter
--- OUTSIDE RECORDS SUMMARY | 2024-09-03 04:47 | XMS_ITS | Encounter Summary ---
Author Organization [facility] Address [address] [place] [address] Care Team Providers Care Corporate Receptionist Name Role Phone Elsewhere, Pcp Primary Care Provider Unavailabl e Encounter Details Date Type Department Care Team (Late st Contact Info) Description 01/27/2015 Historical Ophthalmology [facility] Tyler Smith Jr., M.D. [address], [place] [phone] Social History Tobacco Use Types Packs/Day Years Used Date Smoking Tobacco: Never Assessed Comments Unknown Sex and Gender Information Value Date Recorded Sex Assigned at Female 07/06/2018 4:10 PM CDT Legal Sex Female 2:19 PM DATA WAREHOUSE CONSULTANT Gender Identity Female 07/06/2018 4:10 PM CDT Sexual Orientation Straight 07/06/2018 4: 10 PM CDT documented as of this encounter Progress Notes * Tyler Smith M.D. - 01/27/2015 8:03 AM CDT Contact Lens Exam IMPRESSION / REPORT / PLAN See EYE GEN note; OK to continue CL CDM Reports - EYECL Id: [id number] Status: Fnl documented in this encounter Plan of Treatment Upcoming Encounters Date Type Department Care Team (Latest Contact Info) Description 09/03/2024 11:00 AM DATA WAREHOUSE CONSULTANT Comprehensive Visit Division of Nephrology and Hypertension in [place], [place] [address] [place] [phone] Alida Colmenares M.D. [address] [place] [phone] Rowan Walden, RDN, [place] [address] [place] [phone] 09/13/2024 8:30 AM DATA WAREHOUSE CONSULTANT Nurse Only Division of Nephrology and Hypertension in [place], [place] [address] [place] [phone] Alida Colmenares M.D. [address] [place] [phone] Ashanti Brice R.N. [address] [place] [phone] 10/26/2024 2:00 PM DATA WAREHOUSE CONSULTANT Appointment Department of Cardiovascular Diseases in [place], [place] [address] [place] [phone] Alida Colmenares M.D. [address] [place] [phone] Discharge Disposition: Home or Self Care documented as of this encounter Visit Diagnoses Not on filedocumented in this encounter Additional Health Concerns Assessment Noted Time PHQ-9 Depression Total Score: 0 10/15/19 14 12:16 PM DATA WAREHOUSE CONSULTANT documented as of this encounter Care Teams Corporate Receptionist Relationship Specialty Start Date End Date Elsewhere, Pcp PCP - General Internal Medicine 12/18/21 documented as of this encounter
--- OUTSIDE RECORDS SUMMARY | 2024-09-03 04:47 | XMS_ITS | Encounter Summary ---
Author Organization [facility] Address [address] [place] [address] Care Team Providers Care Jewelry Appraiser Name Role Phone Elsewhere, Pcp Primary Care Provider Unavailabl e Encounter Details Date Type Department Care Team (Late st Contact Info) Description 01/27/2015 Historical Ophthalmology [facility] Tyler Smith Jr., M.D. [address], [place] [phone] Social History Tobacco Use Types Packs/Day Years Used Date Smoking Tobacco: Never Assessed Comments Unknown Sex and Gender Information Value Date Recorded Sex Assigned at Female 07/06/2018 4:10 PM CDT Legal Sex Female 2:19 PM FRYER LINE HELPER Gender Identity Female 07/06/2018 4:10 PM CDT [...] MR /CL CDM Reports - EYEGEN Id: [id number] Status: Fnl documented in this encounter Plan of Treatment Upcoming Encounters Date Type Department Care Team (Latest Contact Info) Description 09/03/2024 11:00 AM FRYER LINE HELPER Comprehensive Visit Division of Nephrology and Hypertension in [place], [place] [address] [place] [phone] Alida Colmenares M.D. [address] [place] [phone] Rowan Walden, MAG[place]ALENAN, [place] [address] [place] [phone] 09/13/2024 8:30 AM FRYER LINE HELPER Nurse Only Division of Nephrology and Hypertension in [place], [place] [address] [place] [phone] Alida Colmenares M.D. [address] [place] [phone] Ashanti Brice R.N. [address] [place] [phone] 10/26/2024 2:00 PM FRYER LINE HELPER Appointment Department of Cardiovascular Diseases in [place], [place] [address] [place] [phone] Alida Colmenares M.D. [address] [place] [phone] Discharge Disposition: Home or Self Care documented as of this encounter Visit Diagnoses Not on filedocumented in this encounter Additional Health Concerns Assessment Noted Time PHQ-9 Depression Total Score: 0 10/15/19 14 12:16 PM FRYER LINE HELPER documented as of this encounter Care Teams Jewelry Appraiser Relationship Specialty Start Date End Date Elsewhere, Pcp PCP - General Internal Medicine 12/18/21 documented as of this encounter
--- OUTSIDE RECORDS SUMMARY | 2024-09-03 04:47 | XMS_ITS | Encounter Summary ---
Author Organization [facility] Address [address] [place] [address] Care Team Providers Care Mechatronics Technician Name Role Phone Elsewhere, Pcp Primary Care Provider Unavailabl e Encounter Details Date Type Department Care Team (Late st Contact Info) Description 02/02/2016 Historical Ophthalmology [facility] Tyler Smith Jr., M.D. [address] [phone] Social History Tobacco Use Types Packs/Day Years Used Date Smoking Tobacco: Never Assessed Comments Unknown Sex and Gender Information Value Date Recorded Sex Assigned at Female 07/06/2018 4:10 PM CDT Legal Sex Female 2:19 PM BABY REGISTRY SALES CONSULTANT Gender Identity Female 07/06/2018 4:10 PM CDT Sexual Orientation Straight 07/06/2018 4: 10 PM CDT documented as of this encounter Progress Notes * Tyler Smith M.D. - 02/02/2016 8:47 AM CDT Contact Lens Exam MULTI-VISIT DOCUMENT This document contains multiple patient visits and is available for review in Document Viewer. CDM Reports - EYECL Id: [id number] Status: Fnl documented in this encounter Plan of Treatment Upcoming Encounters Date Type Department Care Team (Latest Contact Info) Description 09/03/2024 11:00 AM BABY REGISTRY SALES CONSULTANT Comprehensive Visit Division of Nephrology and Hypertension in [place], [place] [address] [place] [phone] Alida Colmenares M.D. [address] [place] [phone] Rowan Walden, MAGDALENAN, LD [address] [place] [phone] 09/13/2024 8:30 AM BABY REGISTRY SALES CONSULTANT Nurse Only Division of Nephrology and Hypertension in [place], [place] [address] [place] [phone] Alida Colmenares M.D. [address] [place] [phone] Ashanti Brice R.N. [address] [place] [phone] 10/26/2024 2:00 PM BABY REGISTRY SALES CONSULTANT Appointment Department of Cardiovascular Diseases in [place], [place] [address] [place] [phone] Alida Colmenares M.D. [address] [place] [phone] Discharge Disposition: Home or Self Care documented as of this encounter Visit Diagnoses Not on filedocumented in this encounter Additional Health Concerns Assessment Noted Time PHQ-9 Depression Total Score: 0 10/15/19 14 12:16 PM BABY REGISTRY SALES CONSULTANT documented as of this encounter Care Teams Mechatronics Technician Relationship Specialty Start Date End Date Elsewhere, Pcp PCP - General Internal Medicine 12/18/21 documented as of this encounter
== END 2024-08-30 10:48 | disposition home or self-care (01) ==
LOC: NFLDREF 09-03 04:43
PROVIDERS: PCP Nurse Practitioner Family; Referring Provider Nurse Practitioner Family; Visit Provider Nurse Practitioner Family
DX: R39.9 Unspecified symptoms and signs involving the genitourinary system (principal)
CPT/HCPCS: 81001; 87086; 87186

== ENCOUNTER 2025-01-10 07:04 | Outpatient (CLI) | payer MEDICAID, SELFPAY ==
--- NOTE | 2025-01-10 07:15 | CRLHL7_ITS ---
For Patients: As a result of the Century Cures Act, medical imaging exams and procedure reports are released immediately into your electronic medical record. You may view this report before your referring provider. If you have questions, please contact your health care provider. Indication: Low back pain. Technique: Multiplanar multisequence noncontrast MR images of the lumbar spine. Comparison: Lumbar spine radiographs 12/07/2024. Findings: Mild rightward lumbar curvature. The lumbar lordosis is preserved. Vertebral body heights are maintained. No acute fracture. No T1 hypointense lesions. Normal conus terminates at L1. T12-L1 and L1-2: No spinal canal or neural foraminal narrowing. L2-3: Trace retrolisthesis. Caiy-hm-unhexlci disc height loss. Posterior disc bulge. Minimal spinal canal narrowing. Mild left lateral recess narrowing. No neural foraminal narrowing. L3-4: Mild retrolisthesis. Moderately severe left eccentric disc height loss. Mild vertebral body edema. Left eccentric disc bulge. Mild facet arthropathy. Mild spinal canal and left lateral recess narrowing. Mild left without right neural foraminal narrowing. L4-5: Moderate disc degeneration. Posterior disc bulge. Qmzo-pp-sxilkafq facet arthropathy. Mild spinal canal narrowing. Gvhd-ph-kordipfa right and mild left lateral recess narrowing. Mild bilateral neural foraminal narrowing. L5-S1: Trace retrolisthesis. Moderate disc degeneration. Posterior disc bulge. Annular fissure. Jelq-fe-dyuflnpk facet arthropathy. No spinal canal or neural foraminal narrowing. Numerous cystic lesions throughout the kidneys. Impression: 1. Multilevel lumbar spondylosis without spinal canal or neural foraminal stenosis. 2. At L3-4, moderately severe left eccentric disc height loss associated with mild vertebral body edema. 3. At L4-5, rjla-lv-psggbwuj right and mild left lateral recess narrowing. Dictated by Riaz Levine MD @ 01/10/2025 8:55:29 AM (Electronically Signed)
== END 2025-01-10 07:05 | disposition home or self-care (01) ==
LOC: MRI 07:04
PROVIDERS: PCP Nurse Practitioner Family; Visit Provider Family Medicine
DX: M54.50 Low back pain, unspecified (principal); M47.896 Other spondylosis, lumbar region; M51.26 Other intervertebral disc displacement, lumbar region; M54.16 Radiculopathy, lumbar region
CPT/HCPCS: 72148

== ENCOUNTER 2025-01-13 10:08 | Outpatient (CLI) | payer MEDICAID, SELFPAY | END 2025-01-13 10:09 | disposition home or self-care (01) | PROVIDERS: PCP Nurse Practitioner Family; Visit Provider Family Medicine | DX: I10 Essential (primary) hypertension (principal); M41.9 Scoliosis, unspecified; M72.0 Palmar fascial fibromatosis [Dupuytren]; M79.644 Pain in right finger(s) | CPT/HCPCS: 80048; 82306; 84165; 85025; 85651; 86038; 86147; 86431; 86618; 86812 ==

== ENCOUNTER 2025-03-04 07:30 | Outpatient (RCR) | payer MEDICAID, SELFPAY ==
--- NOTE | 2025-01-24 07:30 | PT.OPEX ---
[facility] Eval PT [facility] Outpatient Eval Start: 01/21/25 08:10 Freq: Status: Active Protocol: Document 01/21/25 08:11 CRP (Rec: 01/21/25 16:11 CRP [id number]) E-signed By Issac Garcia PT Physical Therapy Outpatient Evaluation Insurance Information Recert Due Date 04/21/25 Insurance Name Medicaid,are Medical Diagnosis Lumbar spondylosis without myelopathy or radiculopathy Referring MD Dr Webster Subjective Subjective Pt reports upper lumbar to L lower lumbar pain. Pain can radiate into the back of the L hip and down the whole leg to the L foot/Toes. Started 4-6 weeks ago. No specific injury. August she did have a fall through [place] that resulted in bruising to the outside of her L thigh and hip. No back pain at the time but is wondering if this could have contributed to issues later. Has had a hx of times of aching into the low back but was manageable and would go away. Currently cannot sit for extended periods of time. Used to be able to sit in couch recliner but now this is an issue. Used to be able to walk 3 miles and now cannot go over a mile. Is having issues of being able to do stuff around the house and not feel she caused issues but then within 15 minutes her pain is ramped up. Cannot find comfortable position to sleep in. Pain all the way down the leg tends to be more down the leg. Prolonged standing and sitting will eventually cause pain down the leg. Had 6 day run of Medrol dose pack that provided mild improvement. Now sxs are back to levels prior to pool exercise. Does also note numbness/tingling into the L LE. Pt also reports she can also have times of tingling into her hands. Current Work Status Parts Order And Stock Clerk Objective Other/Pertinent Objective Posture: Active ext pattern Trunk ROM: Flex min dec, Ext mod dec with central LBP, R SB min dec, L SB mod dec with L LBP, bilat rotation WNL Hip ROM WNL bilat SLR WNL bilat MMT: Myotomes WNL Segmental testing: pain noted L lower lumbar spine grade 3 - began having difficulty tolerating being on her stomach Assessment Assessment/Impression Pt presents to the clinic with signs and sxs suggesting lumbar spine disc related disorders and resulting radicular pain into the L LE. Skilled PT is necessary to incorporate ther ex, nm george, manual ther and pt education to decrease pain and improve functional mobility. Primary Functional Limitations Sitting Standing Walking Sleep air intelligence officer Recreational activity Plan of Care Rehabilitation Potential Excellent Physical Therapy Goals 1. Pt will be independent with HEP in 8 weeks. 2. Pt will walk for exercise x 45 minutes with 90% decrease in pain in 10 weeks. 3. 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 Coordination/Communication With Referral Source Treatment Plan/Direct Interventions Joint Mobilization,Manual Therapy,Neuromuscular Re-ed, Self-Care/Home Management, Therapeutic Activities, Therapeutic Exercises Frequency/Duration 1-2x/wk for 12 weeks Patient Will Be Discharged From Therapy Completion of LTG(s),Skills Plateau,Independent w/HEP, Independently Progressing Evaluation Billing Untimed Code Treatment Minutes 40 Complexity Moderate Certification Information Initial Certification Date 01/21/25 Ending Certification Date 04/21/25 Provider Signature Required Yes Provider Signature Shows Agreement With POC & Medical Necessity Physician NPI Number Write NPI# Here Physician Comment/Change : Physician Signature & Date Requested Please Sign/Date Here
== END 2025-06-22 15:32 | disposition home or self-care (01) ==
PROVIDERS: PCP Nurse Practitioner Family; Visit Provider Family Medicine
DX: M47.816 Spondylosis without myelopathy or radiculopathy, lumbar region (principal); R60.9 Edema, unspecified; Z51.89 Encounter for other specified aftercare
CPT/HCPCS: 97110; 97140; 97162

== ENCOUNTER 2025-05-11 07:18 | Outpatient (CLI) | payer OTHER, SELFPAY ==
--- NOTE | 2025-05-11 07:15 | CRLHL7_ITS ---
For Patients: As a result of the Century Cures Act, medical imaging exams and procedure reports are released immediately into your electronic medical record. You may view this report before your referring provider. If you have questions, please contact your health care provider. INDICATION: Low back pain. COMPARISON: 12/31/2024. Technique Sagittal T1, T2, and STIR sequences. Axial T1 and T2 weighted sequences. FINDINGS: Lumbar curve convex to the right. In sagittal plane, normal vertebral body alignment. No fractures. No vertebral body loss of height. No spondylolisthesis. No ligamentous injury. No suspicious osseous lesions. Normal conus terminates at L1. T12-L1 L1-2: No spinal canal or neural foraminal narrowing. L2-3: Disc generation posted this bulge. No narrowing of spinal canal. No neural foraminal narrowing. L3-4: Disc degeneration. Diffuse disc bulge. Modic type 1 endplate changes. Mild narrowing of spinal canal. Mild narrowing of the left neural foramen. No narrowing of the right neural foramen. L4-5: Disc degeneration posterior disc bulge. Mild narrowing of spinal canal. No neural foraminal narrowing. Mild facet arthropathy. L5-S1: Disc degeneration and diffuse disc bulge. No narrowing of spinal canal. No impingement of the traversing S1 nerve roots. No neural foraminal narrowing. Mild facet arthropathy. Degenerative changes of the SI joints. Polycystic kidneys. Impression : 1. Normal alignment. No fractures 2. Lumbar spondylosis 3. At L3-4, mild narrowing of the spinal canal and left neural foramina 4. At L4-5, mild narrowing of the spinal canal Dictated by Markel Lubin MD @ 05/11/2025 4:54:27 PM (Electronically Signed)
== END 2025-05-11 07:19 | disposition home or self-care (01) ==
LOC: MRI 07:18
PROVIDERS: PCP Nurse Practitioner Family; Visit Provider Family Medicine
DX: M54.50 Low back pain, unspecified (principal); M47.896 Other spondylosis, lumbar region; M51.26 Other intervertebral disc displacement, lumbar region
CPT/HCPCS: 72148